=== PATIENT | male | born 1950 | race Caucasian/White ===

== ENCOUNTER 2017-07-25 08:58 | Day surgery (SDC) | payer MEDICARE, OTHER ==
[~2017-07-25] VITALS: Ht 185.4 cm; Wt 117.5 kg
[~2017-07-25 08:58] MED LIST: ACHD5005 PO; ADV1DS IH; ALBU8.5H4 IH; AMOX-358 PO; ASP81TEC PO; CARV12.5 PO; CIPR500T78 PO; DCS100C PO; DIAZ5TAB3 PO; DIGO125T PO; DILT60TA PO; FRSM40T PO; FURO40TA4 PO; HYDR-1435 PO; HYDR1TAB66 PO; LISI10TA2 PO; MAGN400T6 PO; METO25TA2 PO; POLY17PO23 PO; POTA10CA43 PO; RIVA20TA2 PO; SPRN25T PO; THYR120T2 PO; TRAM50TA2 PO; WARF5TAB6 PO; [UNRECOGNIZED DRUG - CODE] PO
--- OUTSIDE RECORDS SUMMARY | 2017-07-25 09:02 | XMS REPORT ---
Author Author RAHEEM WATKINS [facility] Address [address] [place] [address] Care Team Providers Care Linoleum Installer Name Role Phone RAHEEM WATKINS Unavailable PROBLEMS Type Condition ICD9-CM Code [id number] Code Onset Dates Condition Status SNOMED Code Problem Episodic atrial fibrillation I48.0 Active 157875883 Problem Essential hypertension I10 Active 19735681 Problem Hypothyroidism, unspecified type E03.9 Active 74595036 Problem CHF (congestive heart failure) I50.9 Active 06577828 Problem Non-ischemic cardiomyopathy I42.9 Active 66813560 Problem Fibromyalgia M79.7 Active 564604252 Problem Diabetes E11.9 Active 84378754 ALLERGIES Unknown Allergies SOCIAL HISTORY No smoking Hx information available PLAN OF CARE VITAL SIGNS MEDICATIONS Medication Instructions Dosage Frequency Start Date End Date Duration Status tramadol 50 mg by oral route every 4 hours as needed 1 tablet Jul, Active Tramadol HCl 50 mg Orally every 6 hrs 1 tablet as needed 6h Mar, Active RESULTS No Results PROCEDURES No Known procedures IMMUNIZATIONS No Known Immunizations
--- OUTSIDE RECORDS SUMMARY | 2017-07-25 09:02 | XMS REPORT ---
Author RAHEEM Bragg [facility] eClinicalWorks Address Unknown Phone Unavailable Care Team Providers Care Clerical Aide Teacher Name Role Phone RAHEEM WATKINS CP Unavailable Allergies No Known Allergies Problems Problem Type Condition Code Onset Dates Condition Status Problem Non-ischemic cardiomyopathy I42.9 Active Problem Episodic atrial fibrillation I48.0 Active Problem CHF (congestive heart failure) I50.9 Active Medications No Known Medications Results No Known Results Summary Purpose eClinicalWorks Submission
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
--- OUTSIDE RECORDS SUMMARY | 2017-07-25 09:02 | XMS REPORT ---
Author RAHEEM Bragg [facility] eClinicalWorks Address Unknown Phone Unavailable Care Team Providers Care Transit Mixer Driver Name Role Phone RAHEEM WATKINS Unavailable Allergies, Adverse Reactions, Alerts Substance Reaction Event Type Coreg Info Not Available Drug Allergy Problems Problem Type Condition Code Onset Dates Condition Status Problem Diabetes E11.9 Active Problem CHF (congestive heart failure) I50.9 Active Problem Fibromyalgia M79.7 Active Assessment Diabetes E11.9 Active Assessment Fibromyalgia M79.7 Active Problem Non-ischemic cardiomyopathy I42.9 Active Problem Episodic atrial fibrillation I48.0 Active Medications Medication Code System Code Instructions Start Date End Date Status Dosage Metformin HCl [facility] [address]-76 1000 MG Orally Twice a day, pc Mar 12, 2015 1 tablet with meals tramadol ND 0 50 mg August 05, 2013 1 Tablet by Oral route every 4 hours Melodie Allergy [facility] [address]54 180 mg July 17, 2013 take 1 tablet (180 mg) by oral route once daily Metoprolol Tartrate [facility] 49920260087 25 TAKE 1 TABLET BY MOUTH TWICE DAILY Aspirin [facility] [address]-97 81 mg June 28, 2013 1 Tablet by Oral route 1 time per day Digoxin [facility] 96962307859 125 MCG by oral route Once a day 1 tablet GlipiZIDE [facility] [address]-43 10 mg Orally bid Oct 13, 2015 1 tablet Valium [facility] [address]-34 5 mg Orally qd prn muscle spasm Oct 13, 2015 1 Lisinopril [facility] [address]-20 10 MG Orally Once a day 1 tablet Lyrica [facility] [address]-52 150 MG Orally tid Oct 13, 2015 1 capsule Magnesium Oxide [facility] [address]-07 400 MG 2 times a day July 15, 2013 1 Tablet by Oral route 1 time per day Furosemide [facility] 97226407934 40 MG TAKE ONE TABLET BY MOUTH EACH DAY Benadryl [facility] [address]-51 25 mg July 17, 2013 take 1 capsule by Oral route 1 time per day Jessie Thyroid [facility] [address]-74 120 MG Orally Once a day 1 tablet Procedures Procedure Coding System Code Date [facility] VISIT ESTABLISHED PATIENT CPT-4 G0467 Oct 13, 2015 Office Visit, Est Pt., Level 3 CPT-4 59260 Oct 13, 2015 GLYCATED HEMOGLOBIN TEST CPT-4 20729 Oct 13, 2015 Vital Signs Date/Time: Oct 13, 2015 Cardiac Monitoring Heart Rate 72 bpm Weight 327.8 lbs Height 73 in BMI 43.24 Index Blood Pressure Diastolic 98 mmHg Blood Pressure Systolic 180 mmHg Results No Known Results Summary Purpose eClinicalWorks Submission
--- OUTSIDE RECORDS SUMMARY | 2017-07-25 09:02 | XMS REPORT ---
Author RAHEEM Bragg [facility] eClinicalWorks Address Unknown Phone Unavailable Care Team Providers Care Tile Conduit Layer Name Role Phone RAHEEM WATKINS Unavailable Allergies, Adverse Reactions, Alerts Substance Reaction Event Type Coreg Info Not Available Drug Allergy Problems Problem Type Condition Code Onset Dates Condition Status Problem Non-ischemic cardiomyopathy I42.9 Active Problem Episodic atrial fibrillation I48.0 Active Problem CHF (congestive heart failure) I50.9 Active Assessment Non-ischemic cardiomyopathy I42.9 Active Assessment Episodic atrial fibrillation I48.0 Active Assessment CHF (congestive heart failure) I50.9 Active Assessment Prostatitis N41.9 Active Medications Medication Code System Code Instructions Start Date End Date Status Dosage tramadol [facility] 0 50 mg August 05, 2013 1 Tablet by Oral route every 4 hours Lisinopril [facility] [address]-01 10 MG Orally Once a day 1 tablet Bactrim DS [facility] [address]-86 800-160 MG Orally Twice a day Mar 06, 2015 2015 1 tablet Furosemide [facility] 55653525431 40 MG TAKE ONE TABLET BY MOUTH ONCE DAILY Melodie Allergy [facility] [address]02 180 mg July 17, 2013 take 1 tablet (180 mg) by oral route once daily Benadryl [facility] [address]-24 25 mg July 17, 2013 take 1 capsule by Oral route 1 time per day [place] Thyroid [facility] [address]-45 120 MG Orally Once a day 1 tablet Percocet [facility] [address]-21 5-325 mg Apr 08, 2014 take 1 tablet by Oral route as needed every 6 hours Digoxin [facility] 83368047241 125 MCG TAKE ONE TABLET BY MOUTH DAILY Metoprolol Tartrate [facility] 19445222290 25 MG TAKE ONE TABLET BY MOUTH TWICE DAILY Magnesium Oxide [facility] [address]-14 400 MG 2 times a day July 15, 2013 1 Tablet by Oral route 1 time per day Aspirin [facility] [address]-12 81 mg June 28, 2013 1 Tablet by Oral route 1 time per day Procedures Procedure Coding System Code Date ASSAY OF DIGOXIN CPT-4 44248 Mar 05, 2015 VENIPUNCT, ROUTINE* CPT-4 87243 Mar 05, 2015 COMPREHEN METABOLIC PANEL CPT-4 93506 Mar 05, 2015 Office Visit, Est Pt., Level 3 CPT-4 98272 Mar 05, 2015 Vital Signs Date/Time: Mar 05, 2015 Temperature 97.8 F Weight 331 lbs Height 73 in BMI 43.67 Index Blood Pressure Diastolic 82 mmHg Blood Pressure Systolic 132 mmHg Cardiac Monitoring Heart Rate 66 bpm Results Name Result Date Reference Range Unit Abnormality Flag ROUTINE VENIPUNCTURE DIGOXIN ----Digoxin, Serum <0.2 [id number] 0.9-2.0 ng/mL L Summary Purpose eClinicalWorks Submission
--- OUTSIDE RECORDS SUMMARY | 2017-07-25 09:02 | XMS REPORT ---
Author Author RAHEEM WATKINS [facility] eClinicalWorks Address Unknown Phone Unavailable Care Team Providers Care Financial Aid Name Role Phone RAHEEM WATKINS Unavailable Allergies No Known Allergies Problems Problem Type Condition Code Onset Dates Condition Status Problem Diabetes E11.9 Active Problem CHF (congestive heart failure) I50.9 Active Problem Fibromyalgia M79.7 Active Problem Non-ischemic cardiomyopathy I42.9 Active Problem Episodic atrial fibrillation I48.0 Active Medications Medication Code System Code Instructions Start Date End Date Status Dosage Levothyroxine Sodium [facility] [address]-20 150 MCG Orally Once a day Oct 16, 2015 1 tablet on an empty stomach in the morning Results No Known Results Summary Purpose eClinicalWorks Submission
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
--- OUTSIDE RECORDS SUMMARY | 2017-07-25 09:02 | XMS REPORT ---
Author Author RAHEEM WATKINS [facility] eClinicalWorks Address Unknown Phone Unavailable Care Team Providers Care Geophysical Laboratory Director Name Role Phone RAHEEM WATKINS CP Unavailable Allergies No Known Allergies Problems Problem Type Condition Code Onset Dates Condition Status Problem Other dyspnea and respiratory abnormalities 786.09 Active Problem Essential hypertension, benign 401.1 Active Problem Unspecified hypothyroidism 244.9 Active Problem Unspecified disease of respiratory system 519.9 Active Problem Encounter for long-term (current) use of anticoagulants V58.61 Active Problem Unspecified disorder of urethra and urinary tract 599.9 Active Problem Unspecified myalgia and myositis 729.1 Active Problem Edema 782.3 Active Problem Elevated prostate specific antigen (PSA) 790.93 Active Problem Need for prophylactic vaccination and inoculation, Influenza V04.81 Active Problem Obstructive chronic bronchitis with acute bronchitis 491.22 Active Problem Atrial fibrillation 427.31 Active Problem Nonspecific abnormal electrocardiogram (ECG) (EKG) 794.31 Active Problem Congestive heart failure, unspecified 428.0 Active Problem Nonspecific abnormal finding in stool contents 792.1 Active Problem Other primary cardiomyopathies 425.4 Active Problem Cough 786.2 Active Problem Special screening for malignant neoplasms, colon V76.51 Active Problem Other malaise and fatigue 780.79 Active Medications Medication Code System Code Instructions Start Date End Date Status Dosage [place] Thyroid [facility] [address]-27 120 MG Orally Once a day July 02, 2013 Dec 10, 2013 1 Tablet by Oral route 1 time per day Results No Known Results Summary Purpose eClinicalWorks Submission
--- OUTSIDE RECORDS SUMMARY | 2017-07-25 09:03 | XMS REPORT ---
Author Author RAHEEM WATKINS [facility] Address [address] [place] [address] Care Team Providers Care Highway Worker Name Role Phone RAHEEM WATKINS Unavailable PROBLEMS Type Condition ICD9-CM Code [id number] Code Onset Dates Condition Status SNOMED Code Problem Episodic atrial fibrillation I48.0 Active 531370614 Problem Essential hypertension I10 Active 96409797 Problem Hypothyroidism, unspecified type E03.9 Active 93368001 Problem CHF (congestive heart failure) I50.9 Active 45202715 Problem Non-ischemic cardiomyopathy I42.9 Active 64348094 Problem Fibromyalgia M79.7 Active 434003364 Problem Diabetes E11.9 Active 50661629 ALLERGIES Substance Reaction Event Type Date Status Coreg Unknown Drug Allergy Feb, Active SOCIAL HISTORY No smoking Hx information available PLAN OF CARE Activity Details Follow Up 3 Months Reason: VITAL SIGNS Height 73 in 2016-03-28 Weight 331.8 lbs 2016-03-28 Temperature 97.9 degrees Fahrenheit 2016-03-28 Heart Rate 68 bpm 2016-03-28 Respiratory Rate 20 2016-03-28 BMI 43.77 kg/m2 2016-03-28 Blood pressure systolic 170 mmHg 2016-03-28 Blood pressure diastolic 106 mmHg 2016-03-28 MEDICATIONS Medication Instructions Dosage Frequency Start Date End Date Duration Status Benadryl 25 mg take 1 capsule by Oral route 1 time per day June, Active Furosemide 40 mg Orally Once a day 1 tablet 24h 90 days Active Levothyroxine Sodium 150 MCG Orally Once a day 1 tablet on an empty stomach in the morning 24h 30 Active Lisinopril 10 MG Orally Once a day 1 tablet 24h Active Metformin HCl 1000 MG Orally Twice a day, pc 1 tablet with meals Feb, Active GlipiZIDE 10 mg Orally bid 1 tablet 12h Sep, Active Valium 5 mg Orally qd prn muscle spasm 1 Sep, Active Magnesium Oxide 400 MG 1 Tablet by Oral route 1 time per day 12h June, Active Aspirin 81 mg 1 Tablet by Oral route 1 time per day June, Active Digoxin 125 mcg by oral route Once a day 1 tablet 24h Active tramadol 50 mg by oral route every 4 hours as needed 1 tablet Jul, Active Lyrica 150 MG Orally tid 1 capsule 8h Sep, Active Metoprolol Tartrate 25 TAKE 1 TABLET BY MOUTH TWICE DAILY 30 Active RESULTS Name Result Date Reference Range TSH 2016-03-28 TSH 3.370 0.450-4.500 A1C (IN HOUSE) 2016-03-28 A1C IN HOUSE 8.4 4.3 - 5.6 % Previous A1c 9.5 Lot [id number] Exp date 2017-12 CMP 2016-03-28 Glucose, Serum 182 65-99 BUN 16 8-27 Creatinine, Serum 0.81 0.76-1.27 eGFR If NonAfricn Am 93 >59 eGFR If Africn Am 107 >59 BUN/Creatinine Ratio 20 10-22 Sodium, Serum 140 134-144 Potassium, Serum 4.0 3.5-5.2 Chloride, Serum 93 96-106 Carbon Dioxide, Total 26 18-29 Calcium, Serum 9.3 8.6-10.2 Protein, Total, Serum 8.0 6.0-8.5 Albumin, Serum 4.3 3.6-4.8 Globulin, Total 3.7 1.5-4.5 A/G Ratio 1.2 1.1-2.5 Bilirubin, Total 0.8 0.0-1.2 Alkaline Phosphatase, S 88 39-117 AST (SGOT) 45 0-40 ALT (SGPT) 47 0-44 PROCEDURES Procedure Date Ordered Related Diagnosis Body [facility] Mar [facility], 2016 VENIPUNCT, ROUTINE* Mar 28, 2016 [facility] VISIT ESTABLISHED PATIENT Mar 28, 2016 IMMUNIZATION ADMIN, EACH ADD (please include units) Mar 28, 2016 Office Visit, Est Pt., Level 4 Mar 28, 2016 FLUZONE HIGH DOSE 65 AND UP 2015Mar 28, 2016 GLYCATED HEMOGLOBIN TEST Mar 28, 2016 SINGLE IMMUNIZATION ADMIN Mar 28, 2016 PPV23 (PNEUMOVAX) Mar 28, 2016 IMMUNIZATIONS Vaccine Route Administration Date Status FLUZONE HIGH DOSE 65 AND UP 2015 IM Intramuscular Mar 28, 2016 Administered PPV23 (PNEUMOVAX) IM Intramuscular Mar 28, 2016 Administered
--- OUTSIDE RECORDS SUMMARY | 2017-07-25 09:03 | XMS REPORT ---
Author RAHEEM Bragg [facility] eClinicalWorks Address Unknown Phone Unavailable Care Team Providers Care Physics Tutor Name Role Phone RAHEEM WATKINS CP Unavailable Allergies No Known Allergies Problems Problem Type Condition Code Onset Dates Condition Status Problem Diabetes E11.9 Active Problem CHF (congestive heart failure) I50.9 Active Problem Fibromyalgia M79.7 Active Problem Non-ischemic cardiomyopathy I42.9 Active Problem Episodic atrial fibrillation I48.0 Active Medications No Known Medications Results No Known Results Summary Purpose eClinicalWorks Submission
--- OUTSIDE RECORDS SUMMARY | 2017-07-25 09:03 | XMS REPORT ---
Author Author RAHEEM WATKINS [facility] eClinicalWorks Address Unknown Phone Unavailable Care Team Providers Care Millwright Apprentice Name Role Phone RAHEEM WATKINS Unavailable Allergies No Known Allergies Problems Problem Type Condition Code Onset Dates Condition Status Problem CHF (congestive heart failure) I50.9 Active Problem Non-ischemic cardiomyopathy I42.9 Active Problem Diabetes E11.9 Active Problem Episodic atrial fibrillation I48.0 Active Assessment Diabetes E11.9 Active Medications Medication Code System Code Instructions Start Date End Date Status Dosage Metformin HCl [facility] [address]-71 500 MG Orally Twice a day Mar 12, 2015 1 tablet with meals Results No Known Results Summary Purpose eClinicalWorks Submission
--- OUTSIDE RECORDS SUMMARY | 2017-07-25 09:03 | XMS REPORT ---
Author Author RAHEEM WATKINS [facility] eClinicalWorks Address Unknown Phone Unavailable Care Team Providers Care Security Guard Supervisor Name Role Phone RAHEEM WATKINS CP Unavailable [...] Instructions Start Date End Date Status Dosage Lisinopril [facility] [address]-70 10 MG Orally Once a day 1 tablet Results No Known Results Summary Purpose eClinicalWorks Submission
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
--- OUTSIDE RECORDS SUMMARY | 2017-07-25 09:03 | XMS REPORT ---
Author Author RAHEEM WATKINS [facility] eClinical[employer] Address Unknown Phone Unavailable Care Team Providers Care Sanitarian Inspector Name Role Phone RAHEEM WATKINS Unavailable Allergies No Known Allergies Problems Problem Type Condition Code Onset Dates Condition Status Problem CHF (congestive heart failure) I50.9 Active Problem Non-ischemic cardiomyopathy I42.9 Active Problem Diabetes E11.9 Active Problem Episodic atrial fibrillation I48.0 Active Medications Medication Code System Code Instructions Start Date End Date Status Dosage Magnesium Oxide [facility] [address]-58 400 MG 2 times a day July 15, 2013 1 Tablet by Oral route 1 time per day Lisinopril [facility] [address]-47 10 MG Orally Once a day 1 tablet Orient Thyroid [facility] [address]-13 120 MG Orally Once a day 1 tablet Results No Known Results Summary Purpose eClinicalWorks Submission
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
--- OUTSIDE RECORDS SUMMARY | 2017-07-25 09:03 | XMS REPORT ---
Author Author RAHEEM WATKINS [facility] Address [address] [place] [address] Care Team Providers Care Durability Technician Name Role Phone RAHEEM WATKINS Unavailable PROBLEMS Type Condition ICD9-CM Code PSB27-QP Code Onset Dates Condition Status SNOMED Code Problem Fibromyalgia M79.7 Active 620239512 Problem Diabetes E11.9 Active 22144621 Problem Episodic atrial fibrillation I48.0 Active 266923551 Assessment CHF (congestive heart failure) I50.9 Jan, Active 96466551 Problem CHF (congestive heart failure) I50.9 Active 68755492 Problem Non-ischemic cardiomyopathy I42.9 Active 86718067 ALLERGIES Unknown Allergies SOCIAL HISTORY No smoking Hx information available PLAN OF CARE VITAL SIGNS MEDICATIONS Medication Instructions Dosage Frequency Start Date End Date Duration Status Furosemide 40 mg Orally Once a day 1 tablet 24h 90 days Active RESULTS No Results PROCEDURES No Known procedures IMMUNIZATIONS No Known Immunizations
--- OUTSIDE RECORDS SUMMARY | 2017-07-25 09:03 | XMS REPORT ---
Author Author RAHEEM WATKINS [facility] Address [address] [place] [address] Care Team Providers Care Chief Of Planning Name Role Phone RAHEEM WATKINS Unavailable PROBLEMS Type Condition ICD9-CM Code SAQ47-YD Code Onset Dates Condition Status SNOMED Code Problem Fibromyalgia M79.7 Active 942740486 Problem Diabetes E11.9 Active 96676478 Problem Episodic atrial fibrillation I48.0 Active 970231769 Problem CHF (congestive heart failure) I50.9 Active 96906757 Problem Non-ischemic cardiomyopathy I42.9 Active 19014989 ALLERGIES Unknown Allergies SOCIAL HISTORY No smoking Hx information available PLAN OF CARE VITAL SIGNS MEDICATIONS Medication Instructions Dosage Frequency Start Date End Date Duration Status Digoxin 125 mcg by oral route Once a day 1 tablet 24h Active RESULTS No Results PROCEDURES No Known procedures IMMUNIZATIONS No Known Immunizations
[2017-07-25] MEDS ORDERED: LIDOCAINE 1% INJ 20 ML 20 ML VIAL ONE (09:53)
[2017-07-25 11:07] VITALS: BP 176/84
[2017-07-25 12:16] VITALS: BP 132/68
--- NOTE | 2017-07-25 13:20 | Cardiac Procedure Note-CS/ASA ---
Pre-Procedure Note Pre-Op Procedure Note H&P Reviewed The H&P was reviewed, patient examined and no changes noted. Date H&P Reviewed: July 25, 2017 Time H&P Reviewed: 10:00 Conscious Sedation Pre-Proced Time Reviewed: 10:00 ASA Class: 3 Airway Mallampati Classification: ([place] appropriate class) I. II. III, IV Lungs Heart ASA score ASA 1: a normal healthy patient ASA 2: a patient with a mild systemic disease (mid diabetes, controlled hypertension, obesity ASA 3: a patient with a severe systemic disease that limits activity (angina , COPD, prior Myocardial infarction) ASA 4: a patient with an incapacitating disease that is a constant threat to life (CHF, renal failure) ASA 5: a moribund patient not expected to survive 24 hrs. (ruptured aneurysm) ASA 6: a declared brain patient whose organs are being harvested. For emergent operations, add the letter E after the classification Grade 3 Sedation Plan: Analgesia, Amnesia, Plan communicated to team members, Discussed options with patient/fam, Discussed risks with patient/fam Note The patient is an appropriate candidate to undergo the planned procedure, sedation, and anesthesia. The patient immediately re-assessed prior to indication. MONCHO SHELBY MD FACP FAC CCDS July 25, 2017 13:20
--- NOTE | 2017-07-25 20:44 | OPERATIVE REPORT ---
DATE OF SERVICE: 07/25/2017 PREOPERATIVE DIAGNOSIS: History of atrial fibrillation. POSTOPERATIVE DIAGNOSIS: History of atrial fibrillation. PROCEDURE: Implantable loop recorder implantation. The patient is a 67-year-old man with a history of atrial flutter ablation. He does not wish to be on anticoagulation. Recurrent atrial flutter/fibrillation is a concern. Implantable loop recorder was implanted today to monitor for occult atrial fibrillation. Informed consent was obtained. [facility] The tools provided with the implantable loop recorder were used to make a small incision in the fourth intercostal space just to the left of the sternum after providing local anesthesia. A subcutaneous tunnel was made with the tools provided and the implantable loop recorder was placed in the subcutaneous pocket and the incision closed with Dermabond. He tolerated the procedure well. The device is a eBuddy Reveal LINQ with serial #[id number]. Job ID: [id number] DocumentID: [id number] Dictated Date: 07/25/2017 11:52:35 Product Development Engineer Date: 07/25/2017 16:17:34 Dictated By: MONCHO SHELBY MD, MA, FACP, FACC,
== END 2017-07-25 12:23 | disposition home or self-care (01) ==
LOC: CATH 08:58
PROVIDERS: ATTEND Internal Medicine Cardiovascular Disease
DX: I48.91 Unspecified atrial fibrillation (principal); I48.92 Unspecified atrial flutter; I42.0 Dilated cardiomyopathy; I50.22 Chronic systolic (congestive) heart failure; E03.9 Hypothyroidism, unspecified; E66.9 Obesity, unspecified; Z68.36 Body mass index [BMI] 36.0-36.9, adult
CPT/HCPCS: 33282

== ENCOUNTER 2017-09-12 20:03 | Outpatient (CLI) | payer MEDICARE, OTHER | END 2017-09-13 06:30 | disposition home or self-care (01) | LOC: SLEEP 20:03 | PROVIDERS: ATTEND Otolaryngology Otolaryngology/Facial Plastic Surgery | DX: G47.33 Obstructive sleep apnea (adult) (pediatric) (principal); I50.9 Heart failure, unspecified; I48.92 Unspecified atrial flutter; G47.10 Hypersomnia, unspecified | CPT/HCPCS: 95810 ==

== ENCOUNTER 2017-12-12 05:44 | Outpatient (CLI) | payer MEDICARE ==
[~2017-12-12] VITALS: Ht 185.4 cm; Wt 136.1 kg
[2017-12-12] MEDS ORDERED: FURO40TA4 PO (14:16)
[2017-12-12] MEDS ORDERED: LEVO175T5 PO (14:16)
[2017-12-12] MEDS ORDERED: METO-333 PO (14:16)
[2017-12-12] MEDS ORDERED: MULT-517 PO (14:25)
[2017-12-12] MEDS ORDERED: SAW/1TAB2 PO (14:25)
[2017-12-12] MEDS ORDERED: MAGN400T50 PO (14:25)
[2017-12-12] MEDS ORDERED: PREG200C PO (14:25)
[2017-12-12] MEDS ORDERED: LISI10TA2 PO (14:25)
[2017-12-12] MEDS ORDERED: ASPI-999 PO (14:25)
--- NOTE | 2017-12-19 15:20 | Anesthesia-General Post-Op ---
MAC Patient Condition Mental Status/LOC: Same as Preop Cardiovascular: Satisfactory Nausea/Vomiting: Absent Respiratory: Satisfactory Pain: Controlled Complications: Absent Post Op Complications Complications None Follow Up Care/Instructions Patient Instructions None needed. Anesthesiology Discharge Order Discharge Order Patient is doing well, no complaints, stable vital signs, no apparent adverse anesthesia problems. No complications reported per nursing. FRANCESCA [place] CRNA Dec 19, 2017 15:20
== END 2017-12-12 14:33 | disposition home or self-care (01) ==
LOC: PREOP 05:44
PROVIDERS: ATTEND Surgery
DX: Z01.818 Encounter for other preprocedural examination (principal)

== ENCOUNTER 2018-06-20 10:15 | Outpatient (CLI) | payer MEDICARE ==
[~2018-06-20] VITALS: Ht 185.4 cm; Wt 136.1 kg
[~2018-06-20 10:15] MED LIST changes: +ASPI-999 PO; +LEVO175T5 PO; +MAGN400T50 PO; +METO-333 PO; +MULT-178 PO; +MULT-517 PO; +PREG200C PO; +SAW/1TAB2 PO
== END 2018-06-20 12:35 | disposition home or self-care (01) ==
LOC: PREOP 10:15
PROVIDERS: ATTEND Surgery
DX: Z01.818 Encounter for other preprocedural examination (principal)

== ENCOUNTER 2018-06-26 10:04 | Day surgery (SDC) | payer MEDICARE ==
[~2018-06-26] VITALS: Ht 185.4 cm; Wt 136.1 kg
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
[2018-06-26] MEDS ORDERED: LACTATED RINGERS 1,000 ML IV STA (10:11)
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
[2018-06-26] MEDS ORDERED: LACTATED RINGERS 1,000 ML IV ONE (10:13)
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
--- OUTSIDE RECORDS SUMMARY | 2018-06-26 10:13 | XMS REPORT ---
Author Author RAHEEM WATKINS Organization [facility] Address [address] [place] [address] Care Team Providers Care Gamb Cutter Name Role Phone RAHEEM WATKINS Unavailable PROBLEMS Type Condition ICD9-CM Code VZO67-PW Code Onset Dates Condition Status SNOMED Code Problem CHF (congestive heart failure) I50.9 Active 78797283 Problem Fibromyalgia M79.7 Active 216769319 Problem Diabetes E11.9 Active 92916870 Problem Non-ischemic cardiomyopathy I42.9 Active 99368819 Problem Episodic atrial fibrillation I48.0 Active 172616888 Problem Arthritis of right knee M17.11 Active [id number] Problem Mixed hyperlipidemia E78.2 Active 296960137 Problem Hypothyroidism, unspecified type E03.9 Active 21727342 Problem Essential hypertension I10 Active 82585779 Problem Other insomnia G47.09 Active 232603054 Problem Arthritis M19.90 Active 4443267 ALLERGIES No Information ENCOUNTERS Encounter Location Date Diagnosis [place] [address] [address] Aug, Arthritis of right knee M17.11 [place] [address] [place] [id number] [place] [address]- [address] Aug, [place] [address] [address] Aug, Acute pain of right knee M25.561 ; Diabetes E11.9 ; Hypothyroidism, unspecified type E03.9 and BMI 40.0-44.9, adult Z68.41 [place] [address] [place] [id number] [place] [address]17- 0850 June, Fibromyalgia M79.7 [place] [address] [place] [id number] [place] [address]24- 2689 Apr, Fibromyalgia M79.7 [facility] [address] [place] [id number] [place] [address] 31705- 2655 Mar, Penetrating wound T14.8XXA and Encounter for immunization Z23 [facility] [address] [address]- [address] Mar, [facility] [address] 21071- 4897 Feb, [facility] [address] [address]- 4419 Feb, Fibromyalgia M79.7 [facility] [address] [address]- 6[address] Jan, [facility] [address] 11289- 6878 Jan, Fibromyalgia M79.7 [facility] [address] 48[address]- 1135 Jan, [facility] [address] 71359- 6132 Dec, Fibromyalgia M79.7 [facility] [address] 14888- 9592 Dec, [facility] [address] 44625- 36[address] Dec, [facility] [address] 58492- 6491 Dec, Mixed hyperlipidemia E78.2 and Other insomnia G47.09 [facility] [address] 20661- 8601 Dec, [facility] [address] 42512- 5809 Dec, Encounter for immunization Z23 ; Diabetes E11.9 ; Hypothyroidism, unspecified type E03.9 ; Essential hypertension I10 ; Fever in other diseases R50.81 ; CHF (congestive heart failure) I50.9 ; Fibromyalgia M79.7 and Arthritis M19.90 [facility] [address] [place] [id number] [place] [address] 55069- 2751 Aug, [facility] [address] [place] [id number] [place] [address] 88904- 1902 June, [facility] [address] 94916- 8473 Apr, [facility] [address] 51716- 3169 Apr, CHF (congestive heart failure) I50.9 [facility] [address] 38325- 5576 Apr, Fibromyalgia M79.7 [facility] [address] 72529- 8658 Mar, Fibromyalgia M79.7 [facility] [address] [place] [id number] [place] [address] 61810- 5761 Mar, [facility] [address] [place] [id number] [place] [address] 94338- 2161 Mar, Fibromyalgia M79.7 [facility] [address] [place] [id number] [place] [address] 91993- 7060 Feb, Diabetes E11.9 ; Hypothyroidism, unspecified type E03.9 ; CHF (congestive heart failure) I50.9 ; Fibromyalgia M79.7 ; Encounter for immunization Z23 and Essential hypertension I10 [facility] [address] [place] [id number] [place] [address] 57610- 1744 Jan, CHF (congestive heart failure) I50.9 [facility] [address] [place] [id number] [place] [address] 12934- 1318 Dec, [facility] [address] [place] [id number] [place] [address] 45082- 8791 Sep, [facility] [address] [place] [address]- 7277 Sep, [facility] [address] [address]- 59[address] Sep, Diabetes E11.9 and Fibromyalgia M79.7 [facility] [address] [address]- 7318 Jul, CHF (congestive heart failure) I50.9 [facility] [address] [place] [id number] [place] [address] 29150- 0209 June, CHF (congestive heart failure) I50.9 [facility] [address] [place] [id number] [place] [address] 59525- 6586 Feb, [facility] [address] [place] [id number] [place] [address] 63820- 0739 Feb, Diabetes E11.9 [facility] [address] [place] [id number] [place] [address] 81706- 5120 Feb, [facility] [id number] [place] [address] 88319- 8376 Feb, CHF (congestive heart failure) I50.9 ; Prostatitis N41.9 ; Non-ischemic cardiomyopathy I42.9 and Episodic atrial fibrillation I48.0 [facility] [address] [address]- 2271 Dec, [facility] [address] [address]- 6100 Dec, [facility] [address] [address]- 4234 Jul, [facility] [address] [place] [id number] [place] [address] 39311- 2450 Jul, [facility] [address] [address]- 2392 May, [facility] [address] [address]- 8360 May, [facility] [place] [facility] [address] [id number] [place] [address]- 7950 14 May, 2014 [facility] [place] [facility] [address] [id number] [place] [address]- 6366 May, [facility] [place] [facility] [address] [id number] [place] [address]- 6499 Apr, [facility] [place] [facility] [address] [id number] [place] [address]- 5121 Mar, [facility] [place] [facility] [address] [id number] [place] [address]- 8213 Mar, [facility] [place] [facility] [address] [id number] [place] [address]- 1330 Dec, [facility] [place] [facility] [address] [id number] [place] [address]- 5030 Dec, [facility] [place] [facility] [address] [id number] [place] [address]- 5825 Dec, [facility] [place] [facility] [address] [id number] [place] [address]- 6796 Dec, [facility] [place] [facility] [address] [id number] [place] [address]- 4486 Dec, [facility] [place] [facility] [address] [id number], [place] [address]- 1301 Dec, [facility] [place] [facility] [address] [id number], [place] [address]- 6962 Dec, [facility] [place] [facility] [address] [id number] [place] [address]- 4530 Dec, [facility] [place] [facility] [address] [id number] [place] [address]- 3339 Dec, [facility] [place] [facility] [address] [id number], [place] [address]- 8181 Dec, [facility] [place] [facility] [address] [id number], [place] [address]- 1657 Nov, [facility] [place] [facility] [address] [id number] [place] [address]- 9167 Nov, [facility] [place] [facility] [address] [id number] [place] [address]- 4506 14 Nov, 2013 [facility] [place] [facility] [address] [id number] [place] [address]- 0452 14 Nov, 2013 [facility] [place] [facility] [address] [id number] [place] [address]- 8282 14 Nov, 2013 [facility] [place] [facility] [address] [id number] [place] [address]- 0302 14 Nov, 2013 [facility] [place] [facility] [address] [id number] [place] [address]- 0439 Nov, [facility] [place] [facility] [address] [id number] [place] [address]- 0570 Nov, [facility] [place] [facility] [address] [id number] [place] [address]- 4539 Nov, [facility] [place] [facility] [address] [id number] [place] [address]- 6793 Nov, [facility] [place] [facility] [address] [facility] [id number] [place] [address]- 2160 Nov, [facility] [place] [facility] [address] [id number], [place] [address]- 9527 07 Nov, 2013 [facility] [place] [facility] [address] [id number], [place] [address]- 7348 23 Oct, 2013 [facility] [place] [facility] [address] [id number] [place] [address]- 4894 23 Sep, 2013 [facility] [place] [facility] [address] [id number] [place] [address]- 4470 18 Sep, 2013 [facility] [place] [facility] [address] [id number] [place] [address]- 1896 17 Sep, 2013 [facility] [place] [facility] [address] [id number] [place] [address]- 3607 Oct, [facility] [place] [facility] [address] [id number] [place] [address]- 6318 Oct, [facility] [place] [facility] [address] [id number] [place] [address] Oct, [facility] [place] [facility] [address] [id number] [place] [address]- 6701 Jul, [facility] [place] [facility] [address] [id number] [place] [address]- 9637 Jul, [facility] [place] [facility] [address] [id number] [place] [address]- 0052 Jul, [facility] [place] [facility] [address] [id number] [place] [address]- 6542 Jul, [facility] [place] [facility] [address] [id number] [place] [address]- 1785 Jul, [facility] [place] [facility] [address] [id number] [place] [address]- 2635 Jul, [facility] [place] [facility] [address] [id number] [place] [address]- 5158 Jul, [facility] [place] [facility] [address] [id number] [place] [address]- 3405 Jul, [facility] [place] [facility] [address] [id number] [place] [address]- 0812 June, [facility] [place] [facility] [address] [id number] [place] [address]- 3998 June, [facility] [place] [facility] [address] [id number] [place] [address]- 6207 June, [facility] [place] [facility] [address] [id number] [place] [address]- 6287 June, [facility] [place] [facility] [address] [id number] [place] [address]- 6790 June, [facility] [address] [id number] [place] [address]- 9466 June, [facility] [place] [facility] [address] [id number] [place] [address]- 1594 June, [facility] [place] [facility] [address] [id number] [place] [address]- 1990 June, [facility] [place] [facility] [address] [id number] [place] [address]- 0538 June, [facility] [place] [facility] [address] [id number] [place] [address]- 2859 June, [facility] [place] [facility] [address] [id number] [place] [address]- 0773 June, [facility] [place] [facility] [address] [id number] [place] [address]- 6303 June, [facility] [place] [facility] [address] [id number] [place] [address]- 4733 June, [facility] [place] [facility] [address] [id number] [place] [address]- 6139 June, [facility] [place] [facility] [address] [id number] [place] [address]- 7052 May, [facility] [place] [facility] [address] [id number] [place] [address]- 8223 May, [facility] [place] [facility] [address] [id number] [place] [address]- 4388 May, [facility] [place] [facility] [address] [id number] [place] [address]- 2780 May, [facility] [place] [facility] [address] [id number] [place] [address]- 6912 May, [facility] [place] [facility] [address] [id number] [place] [address]- 6372 May, [facility] [place] [facility] [address] [id number] [place] [address]- 1164 17 May, 2013 [facility] [place] [facility] [address] [id number] [place] [address]- 5106 17 May, 2013 [facility] [place] [facility] [address] [id number] [place] [address]- 8396 16 May, 2013 [facility] [place] [facility] [address] [id number] [place] [address]- 5956 16 May, 2013 [facility] [place] [facility] [address] [id number] [place] [address]- 6486 16 May, 2013 [facility] [place] [facility] [address] [id number] [place] [address]- 3035 16 May, 2013 [facility] [place] [facility] [address] [id number] [place] [address]- 1806 08 May, 2013 [facility] [place] [facility] [address] [id number] [place] [address]- 7932 08 May, 2013 [facility] [place] [facility] [address] [id number] [place] [address]- 8908 May, [facility] [place] [facility] [address] [id number] [place] [address]- 8926 07 May, 2013 [facility] [place] [facility] [address] [id number] [place] [address]- 4807 Apr, [facility] [place] [facility] [address] [id number] [place] [address]- 4075 27 Apr, 2013 [facility] [place] [facility] [address] [id number] [place] [address]- 6251 27 Apr, 2013 [facility] [place] [facility] [address] [id number] [place] [address]- 0976 27 Apr, 2013 [facility] [place] [facility] [address] [id number] [place] [address]- 9762 20 Apr, 2013 [facility] [place] [facility] [address] [id number] [place] [address]- 3388 20 Apr, 2013 [facility] [address] [id number], [place] [address]- 9453 19 Apr, 2013 [facility] [address] [facility] [id number], [place] [address]- 2010 19 Apr, 2013 [facility] [address] [facility] [id number], [place] [address]- 7525 19 Apr, 2013 [facility] [address] [facility] [id number], [place] [address]- 3421 19 Apr, 2013 [facility] [address] [id number], [place] [address]- 5277 19 Apr, 2013 [facility] [address] [facility] [id number], [place] [address]- 8901 19 Apr, 2013 [facility] [address] [facility] [id number], [place] [address]- 7646 14 Apr, 2013 [facility] [address] [facility] [id number], [place] [address]- 4503 14 Apr, 2013 [facility] [address] [facility] [id number], [place] [address]- 0918 13 Apr, 2013 [facility] [address] [facility] [id number], [place] [address]- 0605 12 Apr, 2013 [facility] [address] [facility] [id number], [place] [address]- 5537 12 Apr, 2013 IMMUNIZATIONS No Known Immunizations SOCIAL HISTORY Never Assessed REASON FOR VISIT valium PLAN OF CARE VITAL SIGNS MEDICATIONS Medication [...]
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
--- OUTSIDE RECORDS SUMMARY | 2018-06-26 10:14 | XMS REPORT ---
Author Author RAHEEM WATKINS Organization [facility] Address [address] [place] [address] Care Team Providers Care Tie Cutter Name Role Phone RAHEEM WATKINS Unavailable PROBLEMS Type Condition ICD9-CM Code QDT36-IX Code Onset Dates Condition Status SNOMED Code Problem CHF (congestive heart failure) I50.9 Active 43167282 Problem Fibromyalgia M79.7 Active 317967864 Problem Diabetes E11.9 Active 63993426 Problem Non-ischemic cardiomyopathy I42.9 Active 05005109 Problem Episodic atrial fibrillation I48.0 Active 986888543 Problem Arthritis of right knee M17.11 Active [id number] Problem Mixed hyperlipidemia E78.2 Active 300644720 Problem Hypothyroidism, unspecified type E03.9 Active 48945693 Problem Essential hypertension I10 Active 39875827 Problem Other insomnia G47.09 Active 385551643 Problem Arthritis M19.90 Active 7527303 ALLERGIES No Information ENCOUNTERS Encounter Location Date Diagnosis [place] [address] [address] Aug, Arthritis of right knee M17.11 [place] [address] [place] [id number] [place] [address]- 3318 Aug, [place] [address] [address]- [address] Aug, Acute pain of right knee M25.561 ; Diabetes E11.9 ; Hypothyroidism, unspecified type E03.9 and BMI 40.0-44.9, adult Z68.41 [place] [address] [place] [id number] [place] [address]85- 6219 June, Fibromyalgia M79.7 [place] [address] [place] [id number] [place] [address]11- 6709 Apr, Fibromyalgia M79.7 [facility] [address] [place] [id number] [place] [address] 85661- 5546 Mar, Penetrating wound T14.8XXA and Encounter for immunization Z23 [facility] [address] [address]- [address] Mar, [facility] [address] [address]- 6[address] Feb, [facility] [address] [address]- 77[address] Feb, Fibromyalgia M79.7 [facility] [address] [address]- 46[address] Jan, [facility] [address] 0[address]47- 5582 Jan, Fibromyalgia M79.7 [facility] [address] 96708- 9730 Jan, [facility] [address] [address]- 9829 Dec, Fibromyalgia M79.7 [facility] [address] [address]- 8210 Dec, [facility] [address] 32692- 3203 Dec, [facility] [address] [address]185- 0152 Dec, Mixed hyperlipidemia E78.2 and Other insomnia G47.09 [facility] [address] [address]- 0348 Dec, [facility] [address] [address]- [address] Dec, Encounter for immunization Z23 ; Diabetes E11.9 ; Hypothyroidism, unspecified type E03.9 ; Essential hypertension I10 ; Fever in other diseases R50.81 ; CHF (congestive heart failure) I50.9 ; Fibromyalgia M79.7 and Arthritis M19.90 [facility] [address] [place] [id number] [place] [address] 10460- 7672 Aug, [facility] [address] [place] [id number] [place] [address] 50538- 6363 June, [facility] [address] 97962- 7232 Apr, [facility] [address] 40557- 7385 Apr, CHF (congestive heart failure) I50.9 [facility] [address] 36832- 3995 Apr, Fibromyalgia M79.7 [facility] [address] 79193- 9539 Mar, Fibromyalgia M79.7 [facility] [address] [place] [id number] [place] [address] 08844- 5074 Mar, [facility] [address] [place] [id number] [place] [address] 15122- 4806 Mar, Fibromyalgia M79.7 [facility] [address] [place] [id number] [place] [address] 93134- 0689 Feb, Diabetes E11.9 ; Hypothyroidism, unspecified type E03.9 ; CHF (congestive heart failure) I50.9 ; Fibromyalgia M79.7 ; Encounter for immunization Z23 and Essential hypertension I10 [facility] [address] [place] [id number] [place] [address] 12680- 2909 Jan, CHF (congestive heart failure) I50.9 [facility] [address] [place] [id number] [place] [address] 10310- 3791 Dec, [facility] [address] [place] [id number] [place] [address] 87972- 3608 Sep, [facility] [address] [place] [address]- 1582 Sep, [facility] [address] [address]- 3[address] Sep, Diabetes E11.9 and Fibromyalgia M79.7 [facility] [address] [address]- 6619 Jul, CHF (congestive heart failure) I50.9 [facility] [address] [place] [id number] [place] [address] 57552- 0701 June, CHF (congestive heart failure) I50.9 [facility] [address] [place] [id number] [place] [address] 63620- 6063 Feb, [facility] [address] [place] [id number] [place] [address] 71380- 2662 Feb, Diabetes E11.9 [facility] [address] [place] [id number] [place] [address] 25809- 1841 Feb, [facility] [id number] [place] [address] 57774- 3155 Feb, CHF (congestive heart failure) I50.9 ; Prostatitis N41.9 ; Non-ischemic cardiomyopathy I42.9 and Episodic atrial fibrillation I48.0 [facility] [address] [address]- 5289 Dec, [facility] [address] [address]- 9749 Dec, [facility] [address] [address]- 6713 Jul, [facility] [address] [place] [id number] [place] [address] 39722- 3641 Jul, [facility] [address] [address]- 5051 May, [facility] [address] [address]- 2729 May, [facility] [place] [facility] [address] [id number] [place] [address]- 2347 14 May, 2014 [facility] [place] [facility] [address] [id number] [place] [address]- 4672 May, [facility] [place] [facility] [address] [id number] [place] [address]- 7670 Apr, [facility] [place] [facility] [address] [id number] [place] [address]- 5862 Mar, [facility] [place] [facility] [address] [id number] [place] [address]- 2449 Mar, [facility] [place] [facility] [address] [id number] [place] [address]- 4266 Dec, [facility] [place] [facility] [address] [id number] [place] [address]- 6083 Dec, [facility] [place] [facility] [address] [id number] [place] [address]- 3553 Dec, [facility] [place] [facility] [address] [id number] [place] [address]- 4780 Dec, [facility] [place] [facility] [address] [id number] [place] [address]- 5340 Dec, [facility] [place] [facility] [address] [id number], [place] [address]- 0564 Dec, [facility] [place] [facility] [address] [id number] [address]- 8475 Dec, [facility] [place] [facility] [address] [id number] [place] [address]- 6303 Dec, [facility] [place] [facility] [address] [id number] [place] [address]- 3158 Dec, [facility] [place] [facility] [address] [id number] [address]- 4557 Dec, [facility] [place] [facility] [address] [id number], [place] [address]- 7845 Nov, [facility] [place] [facility] [address] [id number] [place] [address]- 3791 Nov, [facility] [place] [facility] [address] [id number] [place] [address]- 5772 14 Nov, 2013 [facility] [place] [facility] [address] [id number] [place] [address]- 1351 14 Nov, 2013 [facility] [place] [facility] [address] [id number] [place] [address]- 4261 14 Nov, 2013 [facility] [place] [facility] [address] [id number] [place] [address]- 8346 14 Nov, 2013 [facility] [place] [facility] [address] [id number] [place] [address]- 5166 Nov, [facility] [place] [facility] [address] [id number] [place] [address]- 6267 Nov, [facility] [place] [facility] [address] [id number] [place] [address]- 0029 Nov, [facility] [place] [facility] [address] [id number] [place] [address]- 1719 Nov, [facility] [place] [facility] [address] [facility] [id number] [place] [address]- 3904 Nov, [facility] [place] [facility] [address] [id number], [place] [address]- 6825 07 Nov, 2013 [facility] [place] [facility] [address] [id number], [place] [address]- 4886 23 Oct, 2013 [facility] [place] [facility] [address] [id number] [place] [address]- 4621 23 Sep, 2013 [facility] [place] [facility] [address] [id number] [place] [address]- 7469 18 Sep, 2013 [facility] [place] [facility] [address] [id number] [place] [address]- 9698 17 Sep, 2013 [facility] [place] [facility] [address] [id number] [place] [address]- 2174 Oct, [facility] [place] [facility] [address] [id number] [place] [address]- 3364 Oct, [facility] [place] [facility] [address] [id number] [place] [address] Oct, [facility] [place] [facility] [address] [id number] [place] [address]- 0177 Jul, [facility] [place] [facility] [address] [id number] [place] [address]- 5144 Jul, [facility] [place] [facility] [address] [id number] [place] [address]- 2844 Jul, [facility] [place] [facility] [address] [id number] [place] [address]- 7911 Jul, [facility] [place] [facility] [address] [id number] [place] [address]- 5885 Jul, [facility] [place] [facility] [address] [id number] [place] [address]- 8183 Jul, [facility] [place] [facility] [address] [id number] [place] [address]- 2717 Jul, [facility] [place] [facility] [address] [id number] [place] [address]- 8329 Jul, [facility] [place] [facility] [address] [id number] [place] [address]- 3023 June, [facility] [place] [facility] [address] [id number] [place] [address]- 4769 June, [facility] [place] [facility] [address] [id number] [place] [address]- 2914 June, [facility] [place] [facility] [address] [id number] [place] [address]- 8619 June, [facility] [place] [facility] [address] [id number] [place] [address]- 3643 June, [facility] [address] [id number] [place] [address]- 8204 June, [facility] [place] [facility] [address] [id number] [place] [address]- 8757 June, [facility] [place] [facility] [address] [id number] [place] [address]- 2115 June, [facility] [place] [facility] [address] [id number] [place] [address]- 9520 June, [facility] [place] [facility] [address] [id number] [place] [address]- 6243 June, [facility] [place] [facility] [address] [id number] [place] [address]- 7932 June, [facility] [place] [facility] [address] [id number] [place] [address]- 4970 June, [facility] [place] [facility] [address] [id number] [place] [address]- 9775 June, [facility] [place] [facility] [address] [id number] [place] [address]- 4580 June, [facility] [place] [facility] [address] [id number] [place] [address]- 4685 May, [facility] [place] [facility] [address] [id number] [place] [address]- 4633 May, [facility] [place] [facility] [address] [id number] [place] [address]- 3104 May, [facility] [place] [facility] [address] [id number] [place] [address]- 0378 May, [facility] [place] [facility] [address] [id number] [place] [address]- 3535 May, [facility] [place] [facility] [address] [id number] [place] [address]- 8579 May, [facility] [place] [facility] [address] [id number] [place] [address]- 3544 17 May, 2013 [facility] [place] [facility] [address] [id number] [place] [address]- 8366 17 May, 2013 [facility] [place] [facility] [address] [id number] [place] [address]- 5056 16 May, 2013 [facility] [place] [facility] [address] [id number] [place] [address]- 3566 16 May, 2013 [facility] [place] [facility] [address] [id number] [place] [address]- 6636 16 May, 2013 [facility] [place] [facility] [address] [id number] [place] [address]- 8657 16 May, 2013 [facility] [place] [facility] [address] [id number] [place] [address]- 9162 08 May, 2013 [facility] [place] [facility] [address] [id number] [place] [address]- 1836 08 May, 2013 [facility] [place] [facility] [address] [id number] [place] [address]- 8615 May, [facility] [place] [facility] [address] [id number] [place] [address]- 5899 07 May, 2013 [facility] [place] [facility] [address] [id number] [place] [address]- 2081 Apr, [facility] [place] [facility] [address] [id number] [place] [address]- 1179 27 Apr, 2013 [facility] [place] [facility] [address] [id number] [place] [address]- 6303 27 Apr, 2013 [facility] [place] [facility] [address] [id number] [place] [address]- 8588 27 Apr, 2013 [facility] [place] [facility] [address] [id number] [place] [address]- 5159 20 Apr, 2013 [facility] [place] [facility] [address] [id number] [place] [address]- 8158 20 Apr, 2013 [facility] [address] [facility] [id number], [place] [address]- 0999 19 Apr, 2013 [facility] [address] [facility] [id number], [place] [address]- 8088 19 Apr, 2013 [facility] [address] [facility] [id number], [place] [address]- 3520 19 Apr, 2013 [facility] [address] [facility] [id number], [place] [address]- 2287 19 Apr, 2013 [facility] [address] [facility] [id number], [place] [address]- 5828 19 Apr, 2013 [facility] [address] [facility] [id number], [place] [address]- 8791 19 Apr, 2013 [facility] [address] [facility] [id number], [place] [address]- 9082 14 Apr, 2013 [facility] [address] [facility] [id number], [place] [address]- 9874 14 Apr, 2013 [facility] [address] [facility] [id number], [place] [address]- 7860 13 Apr, 2013 [facility] [address] [facility] [id number], [place] [address]- 4212 12 Apr, 2013 [facility] [address] [facility] [id number], [place] [address]- 5340 12 Apr, 2013 IMMUNIZATIONS No Known Immunizations SOCIAL HISTORY Never Assessed REASON FOR VISIT Diazepam PLAN OF CARE VITAL SIGNS MEDICATIONS Medication [...]
[2018-06-26] MEDS ORDERED: HURRICAINE EXT TUBE (BENZOCAINE) XX PRN (10:15)
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
--- OUTSIDE RECORDS SUMMARY | 2018-06-26 10:16 | XMS REPORT ---
Author Author RAHEEM WATKINS [facility] Address [address] [place] [address] Care Team Providers Care Housing Installer Name Role Phone RAHEEM WATKINS Unavailable PROBLEMS Type Condition ICD9-CM Code XVQ32-SE Code Onset Dates Condition Status SNOMED Code Problem Episodic atrial fibrillation I48.0 Active 746094824 Problem Diabetes E11.9 Active 87029622 Problem CHF (congestive heart failure) I50.9 Active 51988262 Problem Non-ischemic cardiomyopathy I42.9 Active 53131175 Problem Mixed hyperlipidemia E78.2 Active 555494625 Problem Other insomnia G47.09 Active 741314369 Problem Essential hypertension I10 Active 18444387 Problem Fibromyalgia M79.7 Active 052286436 Problem Arthritis M19.90 Active 8779461 Problem Hypothyroidism, unspecified type E03.9 Active [id number] ALLERGIES No Information ENCOUNTERS Encounter Location Date Diagnosis [place] [address] [address] June, Fibromyalgia M79.7 [facility] [address] [address] Apr, Fibromyalgia M79.7 [facility] [address] [address]- [address] 2017 Penetrating wound T14.8XXA and Encounter for immunization Z23 [facility] [address] [address]- [address] Mar, [facility] [address] [address] Feb, [place] [id number] [address] Feb, Fibromyalgia M79.7 [facility] [address] [place] [id number] [place] [address]687- 2[address] Jan, [facility] [address] [id number] [place] [address] 23588- 6321 Jan, Fibromyalgia M79.7 [facility] [address] [place] [id number] [place] [address]28- 2924 Jan, [facility] [address] [address]- [address] Dec, Fibromyalgia M79.7 [facility] [address] [place] [id number] [place] [address] 8[address]12- 1551 Dec, [facility] [address] [address]- [address] Dec, [facility] [id number] [place] [address]- 4205 Dec, Mixed hyperlipidemia E78.2 and Other insomnia G47.09 [facility] [id number] [place] [address] 84058- 2947 Dec, [facility] [address] [place] [place] [id number] [place] [address] 56503- 4573 Dec, Encounter for immunization Z23 ; Diabetes E11.9 ; Hypothyroidism, unspecified type E03.9 ; Essential hypertension I10 ; Fever in other diseases R50.81 ; CHF (congestive heart failure) I50.9 ; Fibromyalgia M79.7 and Arthritis M19.90 [facility] [id number] [place] [address]34- 4916 Aug, [facility] [id number] [place] [address] 27571- 8022 June, [facility] [address] [place] [id number] [place] [address] 30106- 1887 Apr, [facility] [address] [place] [id number] [place] [address] 46947- 2976 Apr, CHF (congestive heart failure) I50.9 [facility] [address] [place] [id number] [place] [address] 48043- 2031 Apr, Fibromyalgia M79.7 [facility] [address] [place] [id number] [place] [address]51 2546 08 Mar, 2016 Fibromyalgia M79.7 [facility] [address] [place] [id number] [place] [address] 72921 254 Mar, [facility] [address] 7[address]- 9[address] Mar, Fibromyalgia M79.7 [facility] [address] 023[address]- 5[address] Feb, Diabetes E11.9 ; Hypothyroidism, unspecified type E03.9 ; CHF (congestive heart failure) I50.9 ; Fibromyalgia M79.7 ; Encounter for immunization Z23 and Essential hypertension I10 [facility] [address] [address]- 24[address] Jan, CHF (congestive heart failure) I50.9 [facility] [address] [place] [place] [id number] [place] [address] 23657- 1231 Dec, [facility] [address] [address]40- 7675 Sep, [facility] [id number] [place] [address] 53019- 0030 Sep, [facility] [address] [place] [id number] [place] [address] 68330- 3316 Sep, Diabetes E11.9 and Fibromyalgia M79.7 [facility] [address] [place] [place] [id number] [place] [address] 86856- 5565 Jul, CHF (congestive heart failure) I50.9 [facility] [address] [place] [id number] [place] [address] 88391- 5582 June, CHF (congestive heart failure) I50.9 [facility] [address] [place] [address]- 69[address] 18 Feb, 2015 [facility] [id number] [place] [address] 16036- 7798 Feb, Diabetes E11.9 [facility] [address] [place] [id number] [place] [address] 53957- 4790 13 Feb, 2015 [facility] [address] [place] [place] [id number] [place] [address] 11681- 7884 Feb, CHF (congestive heart failure) I50.9 ; Prostatitis N41.9 ; Non-ischemic cardiomyopathy I42.9 and Episodic atrial fibrillation I48.0 [facility] [address] [place] [place] [id number] [place] [address] 92284- 6267 Dec, [facility] [address] [place] [id number] [place] [address] 78834- 6944 Dec, [facility] [address] [place] [id number] [place] [address] 01950- 0466 Jul, [facility] [id number] [place] [address] 03857- 6481 Jul, [facility] [address] [place] [id number] [place] [address] 70689- 0927 May, [facility] [address] [address]- 3472 May, [facility] [id number] [place] [address] 40208- 6208 May, [facility] [address], [place] [address]- 8192 May, [facility] [address] [place] [id number] [place] [address] 42421- 7371 Apr, [facility] [address], [place] [address]- 4309 Mar, [facility] [id number] [place] [address] 67691- 2520 Mar, [facility] [place] [facility] [address] [id number] [place] [address]- 5139 Dec, [facility] [place] [facility] [address] [id number] [place] [address]- 5877 Dec, [facility] [place] [facility] [address] [id number] [place] [address]- 5877 Dec, [facility] [place] [facility] [address] [id number] [place] [address]- 2948 Dec, [facility] [place] [facility] [address] [id number] [place] [address]- 8930 Dec, [facility] [place] [facility] [address] [id number] [place] [address]- 5298 Dec, [facility] [place] [facility] [address] [id number] [place] [address]- 3347 Dec, [facility] [place] [facility] [address] [id number] [place] [address]- 9816 Dec, [facility] [place] [facility] [address] [id number] [place] [address]- 8834 Dec, [facility] [place] [facility] [address] [id number] [place] [address]- 7086 Dec, [facility] [place] [facility] [address] [id number] [place] [address]- 4374 Nov, [facility] [place] [facility] [address] [id number], [place] [address]- 1989 Nov, [facility] [place] [facility] [address] [id number] [place] [address]- 4384 Nov, [facility] [place] [facility] [address] [id number] [place] [address]- 7089 Nov, [facility] [place] [facility] [address] [id number], [place] [address]- 1822 Nov, [facility] [place] [facility] [address] [id number], [place] [address]- 0738 14 Nov, 2013 [facility] [place] [facility] [address] [id number] [place] [address]- 3413 09 Nov, 2013 [facility] [place] [facility] [address] [id number] [place] [address]- 1431 Nov, 2013 [facility] [place] [facility] [address] [id number] [place] [address]- 6697 Nov, 2013 [facility] [place] [facility] [address] [id number] [place] [address]- 1161 Nov, 2013 [facility] [place] [facility] [address] [id number] [place] [address]- 3157 Nov, 2013 [facility] [place] [facility] [address] [id number] [place] [address]- 6748 Nov, 2013 [facility] [place] [facility] [address] [id number], [place] [address]- 7240 Sep, 2013 [facility] [place] [facility] [address] [id number], [place] [address]- 2023 23 Sep, 2013 [facility] [place] [facility] [address] [id number] [place] [address]- 6199 18 Sep, 2013 [facility] [place] [facility] [address] [id number] [place] [address]- 0355 17 Sep, 2013 [facility] [place] [facility] [address] [id number] [place] [address]- 8153 17 Sep, 2013 [facility] [place] [facility] [address] [id number], [place] [address]- 1917 09 Sep, 2013 [facility] [place] [facility] [address] [id number] [place] [address]- 4901 09 Sep, 2013 [facility] [place] [facility] [address] [id number], [place] [address]- 2561 Jul, [facility] [place] [facility] [address] [id number], [place] [address]- 1824 Jul, [facility] [place] [facility] [address] [id number] [place] [address]- 5840 Jul, [facility] [place] [facility] [address] [id number] [place] [address]- 2755 Jul, [facility] [place] [facility] [address] [id number] [place] [address]- 5313 Jul, [facility] [place] [facility] [address] [id number] [place] [address]- 5975 Jul, [facility] [place] [facility] [address] [id number] [place] [address]- 7119 Jul, [facility] [place] [facility] [address] [id number] [place] [address]- 6474 Jul, [facility] [place] [facility] [address] [id number] [place] [address]- 6008 June, [facility] [place] [facility] [address] [id number] [place] [address]- 8491 June, [facility] [place] [facility] [address] [id number] [place] [address]- 1528 June, [facility] [place] [facility] [address] [id number] [place] [address]- 0684 June, [facility] [place] [facility] [address] [id number] [place] [address]- 4525 June, [facility] [place] [facility] [address] [id number] [place] [address]- 2845 June, [facility] [place] [facility] [address] [id number] [place] [address]- 6720 June, [facility] [place] [facility] [address] [id number] [place] [address]- 5004 June, [facility] [place] [facility] [address] [id number] [place] [address]- 3698 June, [facility] [place] [facility] [address] [id number] [place] [address]- 7849 June, [facility] [address] [id number] [place] [address]- 6455 June, [facility] [place] [facility] [address] [id number] [place] [address]- 8489 June, [facility] [place] [facility] [address] [id number] [place] [address]- 5079 June, [facility] [place] [facility] [address] [id number] [place] [address]- 7308 June, [facility] [place] [facility] [address] [id number] [place] [address]- 8325 May, [facility] [place] [facility] [address] [id number] [place] [address]- 6418 May, [facility] [place] [facility] [address] [id number] [place] [address]- 9028 May, [facility] [place] [facility] [address] [id number] [place] [address]- 4917 May, [facility] [place] [facility] [address] [id number] [place] [address]- 4091 May, [facility] [place] [facility] [address] [id number] [place] [address]- 1267 May, [facility] [place] [facility] [address] [id number] [place] [address]- 8153 May, [facility] [place] [facility] [address] [id number], [place] [address]- 0630 May, [facility] [place] [facility] [address] [id number] [place] [address]- 2374 May, [facility] [place] [facility] [address] [id number] [place] [address]- 9044 May, [facility] [place] [facility] [address] [id number] [place] [address]- 2347 May, [facility] [place] [facility] [address] [id number] [place] [address]- 1669 16 May, 2013 [facility] [place] [facility] [address] [id number] [place] [address]- 1086 08 May, 2013 [facility] [place] [facility] [address] [id number] [place] [address]- 4626 08 May, 2013 [facility] [place] [facility] [address] [id number] [place] [address]- 5506 07 May, 2013 [facility] [place] [facility] [address] [id number] [place] [address]- 1732 07 May, 2013 [facility] [place] [facility] [address] [id number] [place] [address]- 4671 27 Apr, 2013 [facility] [place] [facility] [address] [id number] [place] [address]- 0573 27 Apr, 2013 [facility] [place] [facility] [address] [id number] [place] [address]- 2611 27 Apr, 2013 [facility] [place] [facility] [address] [id number] [place] [address]- 5501 27 Apr, 2013 [facility] [place] [facility] [address] [id number] [place] [address]- 8692 20 Apr, 2013 [facility] [place] [facility] [address] [id number] [place] [address]- 6866 20 Apr, 2013 [facility] [place] [facility] [address] [id number] [place] [address]- 2750 19 Apr, 2013 [facility] [place] [facility] [address] [id number] [place] [address]- 4092 19 Apr, 2013 [facility] [place] [facility] [address] [id number] [place] [address]- 2085 19 Apr, 2013 [facility] [place] [facility] [address] [id number] [place] [address]- 4129 19 Apr, 2013 [facility] [place] [facility] [address] [id number] [place] [address]- 6472 Apr, [facility] [address] [facility] [id number], [place] [address]- 6265 Apr, [facility] [address] [id number], [place] [address]- 4627 Apr, [facility] [address], [place] [address]- 3540 Apr, [facility] [address], [place] [address]- 5398 Apr, [facility] [id number], [place] [address]- 1924 Apr, [facility] [id number], [place] [address]- 4867 Apr, IMMUNIZATIONS No Known Immunizations SOCIAL HISTORY [...]
--- OUTSIDE RECORDS SUMMARY | 2018-06-26 10:17 | XMS REPORT | Continuity of Care Document ---
Author Organization Unknown Address Unknown Allergies Active Description Code Type Severity Reaction Onset Reported/Identified Relationship to Patient Clinical Status Yes Coreg Drug Allergy N/A N/A 06/03/2013 Yes CRILL OIL CRILL OIL Mild N/A 06/14/2013 Yes carvedilol [id number] Drug Allergy Moderate N/A 12/12/2017 Yes warfarin [id number] Drug Allergy Mild ULCERS 12/12/2017 Medications There is no data. Problems Date Dx Coded Attending Type Code Diagnosis Diagnosed By 05/08/2013 JAI DO WANDA K 244.9 UNSPECIFIED ACQUIRED HYPOTHYROIDISM 05/08/2013 VERGARA DO, WANDA K 401.1 BENIGN ESSENTIAL HYPERTENSION 05/08/2013 VERGARA DO, WANDA K 782.3 EDEMA 05/08/2013 VERGARA DO, WANDA K 786.09 RESPIRATORY ABNORMALITY OTHER 05/08/2013 VERGARA DO, WANDA K 244.9 UNSPECIFIED ACQUIRED HYPOTHYROIDISM 05/08/2013 VERGARA DO, WANDA K 401.1 BENIGN ESSENTIAL HYPERTENSION 05/08/2013 VERGARA DO, WANDA K 782.3 EDEMA 05/08/2013 VERGARA DO, WANDA K 786.09 RESPIRATORY ABNORMALITY OTHER 05/08/2013 VERGARA DO, WANDA K 244.9 UNSPECIFIED ACQUIRED HYPOTHYROIDISM 05/08/2013 VERGARA DO, WANDA K 401.1 BENIGN ESSENTIAL HYPERTENSION 05/08/2013 VERGARA DO, WANDA K 782.3 EDEMA 05/08/2013 VERGARA DO, WANDA K 786.09 RESPIRATORY ABNORMALITY OTHER 05/08/2013 VERGARA DO, WANDA K 244.9 UNSPECIFIED ACQUIRED HYPOTHYROIDISM 05/08/2013 VERGARA DO, WANDA K 401.1 BENIGN ESSENTIAL HYPERTENSION 05/08/2013 VERGARA DO, WANDA K 782.3 EDEMA 05/08/2013 VERGARA DO, WANDA K 786.09 RESPIRATORY ABNORMALITY OTHER 05/08/2013 CASSIA CESAR APRN 244.9 UNSPECIFIED ACQUIRED HYPOTHYROIDISM 05/08/2013 CASSIA CESAR APRN 401.1 BENIGN ESSENTIAL HYPERTENSION 05/08/2013 CASSIA CESAR APRN 782.3 EDEMA 05/08/2013 CASSIA CESAR APRN T 786.09 RESPIRATORY ABNORMALITY OTHER 05/08/2013 ALBA FARIAS MD N 244.9 UNSPECIFIED ACQUIRED HYPOTHYROIDISM 05/08/2013 ALBA FARIAS MD N 401.1 BENIGN ESSENTIAL HYPERTENSION 05/08/2013 ALBA FARIAS MD N 782.3 EDEMA 05/08/2013 ALBA FARIAS MD N 786.09 RESPIRATORY ABNORMALITY OTHER 05/08/2013 VERGARA DO, WANDA K 244.9 UNSPECIFIED ACQUIRED HYPOTHYROIDISM 05/08/2013 VERGARA DO, WANDA K 401.1 BENIGN ESSENTIAL HYPERTENSION 05/08/2013 VERGARA DO, WANDA K 782.3 EDEMA 05/08/2013 VERGARA DO, WANDA K 786.09 RESPIRATORY ABNORMALITY OTHER 05/08/2013 VERGARA DO, WANDA K 244.9 UNSPECIFIED ACQUIRED HYPOTHYROIDISM 05/08/2013 VERGARA DO, WANDA K 401.1 BENIGN ESSENTIAL HYPERTENSION 05/08/2013 VERGARA DO, WANDA K 782.3 EDEMA 05/08/2013 VERGARA DO, WANDA K 786.09 RESPIRATORY ABNORMALITY OTHER 05/08/2013 VERGARA DO, WANDA K 244.9 UNSPECIFIED ACQUIRED HYPOTHYROIDISM 05/08/2013 VERGARA DO, WANDA K 401.1 BENIGN ESSENTIAL HYPERTENSION 05/08/2013 VERGARA DO, WANDA K 782.3 EDEMA 05/08/2013 VERGARA DO, WANDA K 786.09 RESPIRATORY ABNORMALITY OTHER 05/08/2013 SABRINA BID CLERK, IMANI R 244.9 UNSPECIFIED ACQUIRED HYPOTHYROIDISM 05/08/2013 SABRINA BID CLERK, IMANI R 401.1 BENIGN ESSENTIAL HYPERTENSION 05/08/2013 SABRINA PORTERN, IMANI R 782.3 EDEMA 05/08/2013 SABRINA BID CLERK, IMANI R 786.09 RESPIRATORY ABNORMALITY OTHER 05/08/2013 VERGARA DO, WANDA K 244.9 UNSPECIFIED ACQUIRED HYPOTHYROIDISM 05/08/2013 VERGARA DO, WANDA K 401.1 BENIGN ESSENTIAL HYPERTENSION 05/08/2013 VERGARA DO, WANDA K 782.3 EDEMA 05/08/2013 VERGARA DO, WANDA K 786.09 RESPIRATORY ABNORMALITY OTHER 05/08/2013 RAHEEM WATKINS MD 244.9 UNSPECIFIED ACQUIRED HYPOTHYROIDISM 05/08/2013 RAHEEM WATKINS MD 401.1 BENIGN ESSENTIAL HYPERTENSION 05/08/2013 RAHEEM WATKINS MD 782.3 EDEMA 05/08/2013 RAHEEM WATKINS MD 786.09 RESPIRATORY ABNORMALITY OTHER 05/08/2013 AMADAOksana BID CLERK, MARCK L 244.9 UNSPECIFIED ACQUIRED HYPOTHYROIDISM 05/08/2013 ROCCO BID CLERK, MARCK L 401.1 BENIGN ESSENTIAL HYPERTENSION 05/08/2013 AMADAL BID CLERK, MARCK L 782.3 EDEMA 05/08/2013 AMADAOksana BID CLERK, MARCK L 786.09 RESPIRATORY ABNORMALITY OTHER 05/08/2013 RAHEEM WATKINS MD 244.9 UNSPECIFIED ACQUIRED HYPOTHYROIDISM 05/08/2013 RAHEEM WATKINS MD 401.1 BENIGN ESSENTIAL HYPERTENSION 05/08/2013 RAHEEM WATKINS MD 782.3 EDEMA 05/08/2013 RAHEEM WATKINS MD 786.09 RESPIRATORY ABNORMALITY OTHER 05/15/2013 VERGARA DO, WANDA K 428.0 CONGESTIVE HEART FAILURE UNSPECIFIED 05/15/2013 VERGARA DO, WANDA K 792.1 NONSPECIFIC ABNORMAL FINDINGS IN STOOL CONTENTS 05/15/2013 VERGARA DO, WANDA K V76.51 COLON CANCER SCREENING 05/15/2013 VERGARA DO, WANDA K 428.0 CONGESTIVE HEART FAILURE UNSPECIFIED 05/15/2013 VERGARA DO, WANDA K 792.1 NONSPECIFIC ABNORMAL FINDINGS IN STOOL CONTENTS 05/15/2013 VERGARA DO, WANDA K V76.51 COLON CANCER SCREENING 05/15/2013 VERGARA DO, WANDA K 428.0 CONGESTIVE HEART FAILURE UNSPECIFIED 05/15/2013 VERGARA DO, WANDA K 792.1 NONSPECIFIC ABNORMAL FINDINGS IN STOOL CONTENTS 05/15/2013 VERGARA DO, WANDA K V76.51 COLON CANCER SCREENING 05/15/2013 CASSIA CESAR APRN 428.0 CONGESTIVE HEART FAILURE UNSPECIFIED 05/15/2013 CASSIA CESAR APRN 792.1 NONSPECIFIC ABNORMAL FINDINGS IN STOOL CONTENTS 05/15/2013 CASSIA CESAR APRN V76.51 COLON CANCER SCREENING 05/15/2013 ALBA FARIAS MD 428.0 CONGESTIVE HEART FAILURE UNSPECIFIED 05/15/2013 ALBA FARIAS MD 792.1 NONSPECIFIC ABNORMAL FINDINGS IN STOOL CONTENTS 05/15/2013 ALBA FARIAS MD V76.51 COLON CANCER SCREENING 05/15/2013 VERGARA DO WANDA K 428.0 CONGESTIVE HEART FAILURE UNSPECIFIED 05/15/2013 VERGARA DO WANDA K 792.1 NONSPECIFIC ABNORMAL FINDINGS IN STOOL CONTENTS 05/15/2013 VERGARA DO, WANDA K V76.51 COLON CANCER SCREENING 05/15/2013 VERGARA DO, WANDA K 428.0 CONGESTIVE HEART FAILURE UNSPECIFIED 05/15/2013 VERGARA DO, WANDA K 792.1 NONSPECIFIC ABNORMAL FINDINGS IN STOOL CONTENTS 05/15/2013 VERGARA DO, WANDA K V76.51 COLON CANCER SCREENING 05/15/2013 VERGARA DO, WANDA K 428.0 CONGESTIVE HEART FAILURE UNSPECIFIED 05/15/2013 VERGARA DO, WANDA K 792.1 NONSPECIFIC ABNORMAL FINDINGS IN STOOL CONTENTS 05/15/2013 VERGARA DO, WANDA K V76.51 COLON CANCER SCREENING 05/15/2013 SABRINA RIVERA IMANI R 428.0 CONGESTIVE HEART FAILURE UNSPECIFIED 05/15/2013 SABRINA RIVERA IMANI R 792.1 NONSPECIFIC ABNORMAL FINDINGS IN STOOL CONTENTS 05/15/2013 SABRINA RIVERA IMANI R V76.51 COLON CANCER SCREENING 05/15/2013 VERGARA DO, WANDA K 428.0 CONGESTIVE HEART FAILURE UNSPECIFIED 05/15/2013 VERGARA DO, WANDA K 792.1 NONSPECIFIC ABNORMAL FINDINGS IN STOOL CONTENTS 05/15/2013 VERGARA DO, WANDA K V76.51 COLON CANCER SCREENING 05/15/2013 RAHEEM WATKINS MD 428.0 CONGESTIVE HEART FAILURE UNSPECIFIED 05/15/2013 RAHEEM WATKINS MD 792.1 NONSPECIFIC ABNORMAL FINDINGS IN STOOL CONTENTS 05/15/2013 RAHEEM WATKINS MD V76.51 COLON CANCER SCREENING 05/15/2013 MARCK VALIENTE APRN 428.0 CONGESTIVE HEART FAILURE UNSPECIFIED 05/15/2013 MARCK VALIENTE APRN 792.1 NONSPECIFIC ABNORMAL FINDINGS IN STOOL CONTENTS 05/15/2013 MARCK VALIENTE APRN V76.51 COLON CANCER SCREENING 05/15/2013 RAHEEM WATKINS MD 428.0 CONGESTIVE HEART FAILURE UNSPECIFIED 05/15/2013 RAHEEM WATKINS MD 792.1 NONSPECIFIC ABNORMAL FINDINGS IN STOOL CONTENTS 05/15/2013 RAHEEM WATKINS MD V76.51 COLON CANCER SCREENING 05/23/2013 VERGARA DO WANDA K 491.22 OBSTRUCTIVE CHRONIC BRONCHITIS WITH ACUTE BRONCHITIS 05/23/2013 VERGARA DO WANDA K 794.31 NONSPECIFIC ABNORMAL ELECTROCARDIOGRAM (ECG) (EKG) 05/23/2013 PAUL VERGARA DOA K 491.22 OBSTRUCTIVE CHRONIC BRONCHITIS WITH ACUTE BRONCHITIS 05/23/2013 JAI BA WANDA K 794.31 NONSPECIFIC ABNORMAL ELECTROCARDIOGRAM (ECG) (EKG) 05/23/2013 CASSIA CESAR APRN 491.22 OBSTRUCTIVE CHRONIC BRONCHITIS WITH ACUTE BRONCHITIS 05/23/2013 CASSIA CESAR APRN 794.31 NONSPECIFIC ABNORMAL ELECTROCARDIOGRAM (ECG) (EKG) 05/23/2013 ALBA FARIAS MD 491.22 OBSTRUCTIVE CHRONIC BRONCHITIS WITH ACUTE BRONCHITIS 05/23/2013 ALBA FARIAS MD 794.31 NONSPECIFIC ABNORMAL ELECTROCARDIOGRAM (ECG) (EKG) 05/23/2013 VERGARA DO WANDA K 491.22 OBSTRUCTIVE CHRONIC BRONCHITIS WITH ACUTE BRONCHITIS 05/23/2013 VERGARA DO WANDA K 794.31 NONSPECIFIC ABNORMAL ELECTROCARDIOGRAM (ECG) (EKG) 05/23/2013 JAI BA WANDA K 491.22 OBSTRUCTIVE CHRONIC BRONCHITIS WITH ACUTE BRONCHITIS 05/23/2013 PAUL VERGARA DOA K 794.31 NONSPECIFIC ABNORMAL ELECTROCARDIOGRAM (ECG) (EKG) 05/23/2013 PAUL VERGARA DOA K 491.22 OBSTRUCTIVE CHRONIC BRONCHITIS WITH ACUTE BRONCHITIS 05/23/2013 JAI BA WANDA K 794.31 NONSPECIFIC ABNORMAL ELECTROCARDIOGRAM (ECG) (EKG) 05/23/2013 SABRINA RIVERA IMANI R 491.22 OBSTRUCTIVE CHRONIC BRONCHITIS WITH ACUTE BRONCHITIS 05/23/2013 CHIKIS BENNETT APRNINA R 794.31 NONSPECIFIC ABNORMAL ELECTROCARDIOGRAM (ECG) (EKG) 05/23/2013 PAUL VERGARA DOA K 491.22 OBSTRUCTIVE CHRONIC BRONCHITIS WITH ACUTE BRONCHITIS 05/23/2013 PAUL VERGARA DOA K 794.31 NONSPECIFIC ABNORMAL ELECTROCARDIOGRAM (ECG) (EKG) 05/23/2013 RAHEEM WATKINS MD 491.22 OBSTRUCTIVE CHRONIC BRONCHITIS WITH ACUTE BRONCHITIS 05/23/2013 RAHEEM WATKINS MD 794.31 NONSPECIFIC ABNORMAL ELECTROCARDIOGRAM (ECG) (EKG) 05/23/2013 MARCK VALIENTE APRN 491.22 OBSTRUCTIVE CHRONIC BRONCHITIS WITH ACUTE BRONCHITIS 05/23/2013 MARCK VALIENTE APRN 794.31 NONSPECIFIC ABNORMAL ELECTROCARDIOGRAM (ECG) (EKG) 05/23/2013 RAHEEM WATKINS MD1.22 OBSTRUCTIVE CHRONIC BRONCHITIS WITH ACUTE BRONCHITIS 05/23/2013 RAHEEM WATKINS MD4.31 NONSPECIFIC ABNORMAL ELECTROCARDIOGRAM (ECG) (EKG) 05/26/2013 RAHEEM WATKINS MD Ot 278.01 MORBID OBESITY 05/26/2013 RAHEEM WATKINS MD Ot 416.8 CHR PULMON HEART DIS NEC 05/26/2013 RAHEEM WATKINS MD Ot 425.4 PRIM CARDIOMYOPATHY NEC 05/26/2013 RAEHEM WATKINS MD Ot 427.32 ATRIAL FLUTTER 05/26/2013 RAHEEM WATKINS MD Ot 427.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 DYSRHYTHMIAS NEC 05/26/2013 RAHEEM WATKINS MD Ot 428.0 CONGESTIVE HEART FAILURE NOS 05/26/2013 RAHEEM WATKINS MD Ot 428.21 ACUTE SYSTOLIC HEART FAILURE 05/26/2013 RAHEEM WATKINS MD Ot 729.1 MYALGIA AND MYOSITIS NOS 05/26/2013 RAHEEM WATKINS MD Ot 780.79 OTH MALAISE FATIGUE 05/26/2013 RAHEEM WATKINS MD Ot 786.50 CHEST PAIN NOS 05/26/2013 RAHEEM WATKINS MD Ot 792.1 ABN FIND-STOOL CONTENTS 05/26/2013 RAHEEM WATKINS MD Ot V58.69 OT MED,LT,CURRENT USE 05/26/2013 RAHEEM WATKINS MD Ot V85.38 BODY MASS INDEX 38.0-38.9, ADULT 06/03/2013 WANDA VERGARA DO 519.9 RESPIRATORY DISORDERS 06/03/2013 WANDA VERGARA DO 599.9 UROLOGIC DISORDERS 06/03/2013 WANDA VERGARA DO 790.93 PSA ELEVATED 06/03/2013 WANDA VERGARA DO V58.61 LONG-TERM (CURRENT) USE OF ANTICOAGULANTS 06/03/2013 CASSIA CESAR APRN 519.9 RESPIRATORY DISORDERS 06/03/2013 CASSIA CESAR APRN 599.9 UROLOGIC DISORDERS 06/03/2013 CASSIA CESAR APRN 790.93 PSA ELEVATED 06/03/2013 CASSIA CESAR APRN V58.61 LONG-TERM (CURRENT) USE OF ANTICOAGULANTS 06/03/2013 ALBA FARIAS MD 519.9 RESPIRATORY DISORDERS 06/03/2013 ALBA FARIAS MD 599.9 UROLOGIC DISORDERS 06/03/2013 ALBA FARIAS MD 790.93 PSA ELEVATED 06/03/2013 ALBA FARIAS MD V58.61 LONG-TERM (CURRENT) USE OF ANTICOAGULANTS 06/03/2013 VERGARA DO, WANDA K 519.9 RESPIRATORY DISORDERS 06/03/2013 VERGARA DO, WANDA K 599.9 UROLOGIC DISORDERS 06/03/2013 VERGARA DO, WANDA K 790.93 PSA ELEVATED 06/03/2013 VERGARA DO, WANDA K V58.61 LONG-TERM (CURRENT) USE OF ANTICOAGULANTS 06/03/2013 VERGARA DO, WANDA K 519.9 RESPIRATORY DISORDERS 06/03/2013 VERGARA DO, WANDA K 599.9 UROLOGIC DISORDERS 06/03/2013 VERGARA DO, WANDA K 790.93 PSA ELEVATED 06/03/2013 VERGARA DO, WANDA K V58.61 LONG-TERM (CURRENT) USE OF ANTICOAGULANTS 06/03/2013 VERGARA DO, WANDA K 519.9 RESPIRATORY DISORDERS 06/03/2013 VERGARA DO, WANDA K 599.9 UROLOGIC DISORDERS 06/03/2013 VERGARA DO, WANDA K 790.93 PSA ELEVATED 06/03/2013 VERGARA DO, WANDA K V58.61 LONG-TERM (CURRENT) USE OF ANTICOAGULANTS 06/03/2013 SABRINA BID CLERK, IMANI R 519.9 RESPIRATORY DISORDERS 06/03/2013 SABRINA BID CLERK, IMANI R 599.9 UROLOGIC DISORDERS 06/03/2013 SABRINA BID CLERK, IMANI R 790.93 PSA ELEVATED 06/03/2013 SABRINA BID CLERK, IMANI R V58.61 LONG-TERM (CURRENT) USE OF ANTICOAGULANTS 06/03/2013 VERGARA DO, WANDA K 519.9 RESPIRATORY DISORDERS 06/03/2013 VERGARA DO, WANDA K 599.9 UROLOGIC DISORDERS 06/03/2013 VERGARA DO, WANDA K 790.93 PSA ELEVATED 06/03/2013 VERGARA DO, WANDA K V58.61 LONG-TERM (CURRENT) USE OF ANTICOAGULANTS 06/03/2013 RAHEEM WATKINS MD 519.9 RESPIRATORY DISORDERS 06/03/2013 RAHEEM WATKINS MD 599.9 UROLOGIC DISORDERS 06/03/2013 RAHEEM WATKINS MD 790.93 PSA ELEVATED 06/03/2013 RAHEEM WATKINS MD V58.61 LONG-TERM (CURRENT) USE OF ANTICOAGULANTS 06/03/2013 MARCK VALIENTE APRN 519.9 RESPIRATORY DISORDERS 06/03/2013 MARCK VALIENTE APRN 599.9 UROLOGIC DISORDERS 06/03/2013 MARCK VALIENTE APRN L 790.93 PSA ELEVATED 06/03/2013 MARCK VALIENTE APRN V58.61 LONG-TERM (CURRENT) USE OF ANTICOAGULANTS 06/03/2013 RAHEEM WATKINS MD 519.9 RESPIRATORY DISORDERS 06/03/2013 RAHEEM WATKINS MD 599.9 UROLOGIC DISORDERS 06/03/2013 RAHEEM WATKINS MD 790.93 PSA ELEVATED 06/03/2013 RAHEEM WATKINS MD V58.61 LONG-TERM (CURRENT) USE OF ANTICOAGULANTS 06/12/2013 CASSIA CESAR APRN 780.79 fatigue 06/12/2013 ALBA FARIAS MD 780.79 FATIGUE 06/12/2013 VERGARA DO WANDA K 780.79 FATIGUE 06/12/2013 VERGARA DO WANDA K 780.79 FATIGUE 06/12/2013 VERGARA DO WANDA K 780.79 FATIGUE 06/12/2013 IMANI BENNETT APRN R 780.79 FATIGUE 06/12/2013 PAUL VERGARA DOA K 780.79 FATIGUE 06/12/2013 RAHEEM WATKINS MD 780.79 FATIGUE 06/12/2013 MARCK VALIENTE APRN 780.79 FATIGUE 06/12/2013 RAHEEM WATKINS MD 780.79 FATIGUE 06/17/2013 RAHEEM WATKINS MD Ot 038.9 SEPTICEMIA NOS 06/17/2013 RAHEEM WATKINS MD Ot 041.04 STREPTOCOCCUS INFECTION NOS, GROUP D (EN 06/17/2013 RAHEEM WATKINS MD Ot 246.9 DISORDER OF THYROID NOS 06/17/2013 RAHEEM WATKINS MD Ot 276.1 HYPOSMOLALITY 06/17/2013 RAHEEM WATKINS MD Ot 278.00 OBESITY, NOS 06/17/2013 RAHEEM WATKINS MD Ot 425.4 PRIM CARDIOMYOPATHY NEC 06/17/2013 RAHEEM WATKINS MD Ot 427.32 ATRIAL FLUTTER 06/17/2013 RAHEEM WATKINS MD Ot 428.0 CONGESTIVE HEART FAILURE NOS 06/17/2013 RAHEEM WATKINS MD Ot 428.21 ACUTE SYSTOLIC HEART FAILURE 06/17/2013 RAHEEM WATKINS MD Ot 493.20 CHRONIC OBSTRUCTIVE ASTHMA, NOS 06/17/2013 RAHEEM WATKINS MD Ot 599.0 URIN TRACT INFECTION NOS 06/17/2013 RAHEEM WATKINS MD Ot 600.00 HYPERTROPHY (BENIGN) OF PROSTATE W/O URI 06/17/2013 RAHEEM WATKINS MD Ot 693.0 DRUG DERMATITIS NOS 06/17/2013 RAHEEM WATKINS MD Ot 729.1 MYALGIA AND MYOSITIS NOS 06/17/2013 RAHEEM WATKINS MD Ot 790.29 OTHER ABNORMAL GLUCOSE 06/17/2013 RAHEEM WATKINS MD Ot 995.91 SEPSIS 06/17/2013 RAHEEM WATKINS MD Ot E934.2 ADV EFF ANTICOAGULANTS 06/17/2013 RAHEEM WATKINS MD Ot V03.82 PROPHYLACTIC VACC AGAINST STREPTOCOCCUS 06/17/2013 RAHEEM WATKINS MD Ot V85.34 BODY MASS INDEX 34.0-34.9, ADULT 07/17/2013 VERGARA DO WANDA K 425.4 CARDIOMYOPHATHY 07/17/2013 JAI BA WANDA K 427.31 ATRIAL FIBRILLATION 07/17/2013 JAI BA WANDA K 425.4 CARDIOMYOPHATHY 07/17/2013 VERGARA , WANDA K 427.31 ATRIAL FIBRILLATION 07/17/2013 VERGARA DO WANDA K 425.4 CARDIOMYOPHATHY 07/17/2013 VERGARA , WANDA K 427.31 ATRIAL FIBRILLATION 07/17/2013 IMANI BENNETT APRN R 425.4 CARDIOMYOPHATHY 07/17/2013 IMANI BENNETT APRN R 427.31 ATRIAL FIBRILLATION 07/17/2013 VERGARA DO WANDA K 425.4 CARDIOMYOPHATHY 07/17/2013 JAI BA WANDA K 427.31 ATRIAL FIBRILLATION 07/17/2013 RAHEEM WATKINS MD 425.4 CARDIOMYOPHATHY 07/17/2013 RAHEEM WATKINS MD 427.31 ATRIAL FIBRILLATION 07/17/2013 MARCK VALIENTE APRN 425.4 CARDIOMYOPHATHY 07/17/2013 MARCK VALIENTE APRN L 427.31 ATRIAL FIBRILLATION 07/17/2013 RAHEEM WATKINS MD 425.4 CARDIOMYOPHATHY 07/17/2013 RAHEEM WATKINS MD 427.31 ATRIAL FIBRILLATION 11/13/2013 IMANI BENNETT APRN R 786.2 COUGH 11/13/2013 WANDA VERGARA DO 786.2 COUGH 11/13/2013 JUNE TANG, RAHEEM 786.2 COUGH 11/13/2013 ROCCO RIVERAMARCK 786.2 COUGH 11/13/2013 JUNE TANG, RAHEEM 786.2 COUGH 12/05/2013 JUNE TANG, RAHEEM V04.81 FLU SHOT 12/05/2013 ROCCO RIVERA MARCK L V04.81 FLU SHOT 12/05/2013 JUNE TAGN, RAHEEM V04.81 FLU SHOT 04/08/2014 JUNE TANG, RAHEEM 729.1 MYALGIA AND MYOSITIS UNSPECIFIED 06/30/2017 HERON TANG FACC, ALI FACP CCDS Ot 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 06/30/2017 HERON TANG FACC, ALI FACP CCDS Ot 397.0 TRICUSPID VALVE DISEASE 06/30/2017 HERON TANG FACC, ALI FACP CCDS Ot 425.4 PRIM CARDIOMYOPATHY NEC 06/30/2017 HERON TANG FACC, ALI FACP CCDS Ot 427.32 ATRIAL FLUTTER 07/17/2017 HERON TANG FACC, ALI FACP CCDS Ot 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 07/17/2017 HERON TANG FACC, ALI FACP CCDS Ot 397.0 TRICUSPID VALVE DISEASE 07/17/2017 HERON TANG FACC, ALI FACP CCDS Ot 425.4 PRIM CARDIOMYOPATHY NEC 07/17/2017 HERON TANG FACC, ALI FACP CCDS Ot 427.32 ATRIAL FLUTTER 07/25/2017 HERON TANG FACC, ALI FACP CCDS Ot 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 07/25/2017 HERON TANG FACC, ALI FACP CCDS Ot 397.0 TRICUSPID VALVE DISEASE 07/25/2017 HERON TANG FACC, ALI FACP CCDS Ot 425.4 PRIM CARDIOMYOPATHY NEC 07/25/2017 HERON TANG FACC, ALI FACP CCDS Ot 427.32 ATRIAL FLUTTER 07/25/2017 HERON PARKSC, ALI FACP CCDS Ot E03.9 HYPOTHYROIDISM, UNSPECIFIED 07/25/2017 HERON TANG FACC, ALI FACP CCDS Ot E66.9 OBESITY, UNSPECIFIED 07/25/2017 HERON TANG FACC, ALI FACP CCDS Ot I42.0 DILATED CARDIOMYOPATHY 07/25/2017 HERON MD FACC, ALI FACP CCDS Ot I48.91 UNSPECIFIED ATRIAL FIBRILLATION 07/25/2017 HERON TANG FACC, ALI FACP CCDS Ot I48.92 UNSPECIFIED ATRIAL FLUTTER 07/25/2017 HERON TANG FACC, ALI FACP CCDS Ot I50.22 CHRONIC SYSTOLIC (CONGESTIVE) HEART FAIL 07/25/2017 HERON TANG FACC, ALI FACP CCDS Ot Z68.36 BODY MASS INDEX (BMI) 36.0-36.9, ADULT 07/27/2017 HERON TANG FACC, ALI FACP CCDS Ot E03.9 HYPOTHYROIDISM, UNSPECIFIED 07/27/2017 HERON TANG FACC, ALI FACP CCDS Ot E66.9 OBESITY, UNSPECIFIED 07/27/2017 HERON TANG FACC, ALI FACP CCDS Ot I42.0 DILATED CARDIOMYOPATHY 07/27/2017 HERON TANG FACC, ALI FACP CCDS Ot I48.91 UNSPECIFIED ATRIAL FIBRILLATION 07/27/2017 HERON TANG FAC, ALI FACP CCDS Ot I48.92 UNSPECIFIED ATRIAL FLUTTER 07/27/2017 HERON TANG FAC, ALI FACP CCDS Ot I50.22 CHRONIC SYSTOLIC (CONGESTIVE) HEART FAIL 07/27/2017 HERON TANG FAC, ALI FACP CCDS Ot Z68.36 BODY MASS INDEX (BMI) 36.0-36.9, ADULT 09/12/2017 KEITH WILLINGHAM MD P Ot G47.33 OBSTRUCTIVE SLEEP APNEA (ADULT) (PEDIATR 09/12/2017 KEITH WILLINGHAM MD P Ot G47.10 HYPERSOMNIA, UNSPECIFIED 09/12/2017 KEITH WILLINGHAM MD P Ot G47.33 OBSTRUCTIVE SLEEP APNEA (ADULT) (PEDIATR 09/12/2017 KEITH WILLINGHAM MD P Ot I48.92 UNSPECIFIED ATRIAL FLUTTER 09/12/2017 KEITH WILLINGHAM MD P Ot I50.9 HEART FAILURE, UNSPECIFIED 09/13/2017 KEITH WILLINGHAM MD Ot G47.10 HYPERSOMNIA, UNSPECIFIED 09/13/2017 KEITH WILLINGHAM MD P Ot G47.33 OBSTRUCTIVE SLEEP APNEA (ADULT) (PEDIATR 09/13/2017 MAULIK TANG, KEITH Vergara Ot I48.92 UNSPECIFIED ATRIAL FLUTTER 09/13/2017 KEITH WILLINGHAM MD P Ot I50.9 HEART FAILURE, UNSPECIFIED 09/13/2017 KEITH WILLINGHAM MD Ot G47.10 HYPERSOMNIA, UNSPECIFIED 09/13/2017 KEITH WILLINGHAM MD Ot G47.33 OBSTRUCTIVE SLEEP APNEA (ADULT) (PEDIATR 09/13/2017 KEITH WILLINGHAM MD Ot I48.92 UNSPECIFIED ATRIAL FLUTTER 09/13/2017 KEITH WILLINGHAM MD Ot I50.9 HEART FAILURE, UNSPECIFIED 12/12/2017 SUE DICKERSON DO Ot Z01.818 ENCOUNTER FOR OTHER PREPROCEDURAL EXAMIN 06/19/2018 HERON TANG FACC, MONCHO PARKSP CCDS Ot 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 06/19/2018 HERON TANG FACC, MONCHO PARKSP CCDS Ot 397.0 TRICUSPID VALVE DISEASE 06/19/2018 HERON TANG FACC, MONCHO DYSON CCDS Ot 425.4 PRIM CARDIOMYOPATHY NEC 06/19/2018 MONCHO SHELBY MD, FACC, FACP CCDS Ot 427.32 ATRIAL FLUTTER 06/20/2018 SUE DICKERSON DO Ot Z01.818 ENCOUNTER FOR OTHER PREPROCEDURAL EXAMIN 06/21/2018 SUE DICKERSON DO Ot Z01.818 ENCOUNTER FOR OTHER PREPROCEDURAL EXAMIN Procedures Code Description [place] [address] ROUTINE VENIPUNCTURE 05/08/2013 47166 XRAY CHEST 2 VIEW 05/08/2013 78761 OXIMETRY 05/08/2013 7951137 GFR CALC (RESULT ONLY) 05/08/2013 29854 CMP 05/08/2013 63568 CBC 05/08/2013 54065 BNP 05/09/2013 43746 ROUTINE VENIPUNCTURE 05/15/2013 73909 HEMOCCULT 05/15/2013 96774 HEMOCCULT 05/15/2013 41690 BMP 05/15/2013 85271 CPK 05/15/2013 89845 BNP 05/15/2013 63768 OXIMETRY 05/15/2013 CARDIOLOG MONCHO SHELBY 05/15/2013 GENERAL S Sue Dickerson 05/15/2013 93906 ROUTINE VENIPUNCTURE 05/23/2013 32235 ROUTINE VENIPUNCTURE 05/23/2013 02289 EKG, TRACING 05/23/2013 17011 BMP 05/23/2013 70647 BNP 05/23/2013 10576 EKG, TRACING 05/23/2013 80366 OXIMETRY 05/23/2013 45435 OXIMETRY 05/23/2013 5557636 GFR CALC (RESULT ONLY) 05/23/2013 28449 BMP 05/23/2013 74267 BNP 05/23/2013 08834 ROUTINE VENIPUNCTURE 06/03/2013 42626 INR (IN HOUSE) 06/03/2013 86866 OXIMETRY 06/03/2013 40759 CBC 06/03/2013 0754550 GFR CALC (RESULT ONLY) 06/03/2013 18316 BMP 06/03/2013 90301 ROUTINE VENIPUNCTURE 06/12/2013 34741 INR (IN HOUSE) 06/12/2013 28680 CBC 06/12/2013 TICK TICKPANEL W/LYME 06/12/2013 06040 ROUTINE VENIPUNCTURE 06/28/2013 2299791 GFR CALC (RESULT ONLY) 06/28/2013 17550 CMP 06/28/2013 17808 TSH 06/28/2013 19131 OXIMETRY 07/03/2013 33563 OXIMETRY 07/17/2013 70200 ECHO 2D 08/13/2013 71355 OXIMETRY 11/13/2013 46193 UA W/ CULTURE IF INDICATED 11/13/2013 27945 CULTURE URINE 11/14/2013 67122 ROUTINE VENIPUNCTURE 12/05/2013 11299 UA LONG DIP 12/05/2013 33356 CBC 12/05/2013 05460 CMP 12/05/2013 9858095 GFR CALC (RESULT ONLY) 12/05/2013 89537 CRP 12/05/2013 74670 PSA TOTAL 12/05/2013 Results Test Result Range [facility] - 01/02/17 10:19 GLUCOSE 257 mg/dL 65-99 UREA NITROGEN (BUN) 18 mg/dL 7-25 CREATININE 0.83 mg/dL 0.70-1.25 eGFR NON-AFR. ETHIOPIAN 92 mL/min/1.73m2 > OR=60 eGFR 106 mL/min/1.73m2 > OR=60 BUN/CREATININE RATIO NOT APPLICABLE (calc) 6-22 SODIUM 137 mmol/L 135-146 POTASSIUM 4.1 mmol/L 3.5-5.3 CHLORIDE 98 mmol/L 98-110 CARBON DIOXIDE 31 mmol/L 20-31 CALCIUM 9.6 mg/dL 8.6-10.3 PROTEIN, TOTAL 8.0 g/dL 6.1-8.1 ALBUMIN 4.2 g/dL 3.6-5.1 GLOBULIN 3.8 g/dL (calc) 1.9-3.7 ALBUMIN/GLOBULIN RATIO 1.1 (calc) 1.0-2.5 BILIRUBIN, TOTAL 1.4 mg/dL 0.2-1.2 ALKALINE PHOSPHATASE 91 U/L 40-115 AST 58 U/L 10-35 ALT 62 U/L 9-46 DIGOXIN - 01/02/17 10:19 DIGOXIN <0.5 mcg/L 0.8-2.0 TSH - 09/04/17 12:20 TSH 7.43 mIU/L 0.40-4.50 CMP - 02/01/18 16:00 GLUCOSE 144 mg/dL 65-99 UREA NITROGEN (BUN) 24 mg/dL 7-25 CREATININE 1.06 mg/dL 0.70-1.25 eGFR NON-AFR. ETHIOPIAN 72 mL/min/1.73m2 > OR=60 eGFR 84 mL/min/1.73m2 > OR=60 BUN/CREATININE RATIO NOT APPLICABLE (calc) 6-22 SODIUM 139 mmol/L 135-146 POTASSIUM 4.3 mmol/L 3.5-5.3 CHLORIDE 96 mmol/L 98-110 CARBON DIOXIDE 35 mmol/L 20-32 CALCIUM 9.5 mg/dL 8.6-10.3 PROTEIN, TOTAL 7.6 g/dL 6.1-8.1 ALBUMIN 4.1 g/dL 3.6-5.1 GLOBULIN 3.5 g/dL (calc) 1.9-3.7 ALBUMIN/GLOBULIN RATIO 1.2 (calc) 1.0-2.5 BILIRUBIN, TOTAL 0.8 mg/dL 0.2-1.2 ALKALINE PHOSPHATASE 89 U/L 40-115 AST 33 U/L 10-35 ALT 35 U/L 9-46 TSH - 02/01/18 16:00 TSH 3.90 mIU/L 0.40-4.50 Encounters ACCT No. Visit Date/Time Discharge Status Pt. Type Provider Facility Loc./Unit Complaint [id number] 04/08/2014 10:11:00 04/08/2014 23:59:59 CLS Outpatient RAHEEM WATKINS MD [id number] 12/05/2013 14:35:00 12/05/2013 23:59:59 CLS Outpatient RAHEEM WATKINS MD [id number] 11/13/2013 10:34:00 11/13/2013 23:59:59 CLS Outpatient SABRINA PORTERNIMANI [id number] 10/10/2013 00:00:00 10/10/2013 23:59:59 CLS Outpatient JAI BA WANDA Rowley [id number] 08/13/2013 00:00:00 08/13/2013 23:59:59 CLS Outpatient JAI BA WANDA Rowley [id number] 07/17/2013 09:20:00 07/17/2013 23:59:59 CLS Outpatient JAI BA WANDA Rowley [id number] 07/03/2013 07:32:00 07/03/2013 23:59:59 CLS Outpatient ALBA FARIAS MD [id number] 06/12/2013 17:33:00 06/12/2013 23:59:59 CLS Outpatient CASSIA CESAR APRN [id number] 06/03/2013 09:47:00 06/03/2013 23:59:59 CLS Outpatient JAI BA WANDA Rowley [id number] 05/23/2013 08:47:00 05/23/2013 23:59:59 CLS Outpatient JAI BA WANDA Rowley [id number] 05/23/2013 08:47:00 05/23/2013 23:59:59 CLS Outpatient MARCK VALIENTE APRN [id number] 05/15/2013 10:34:00 05/15/2013 23:59:59 CLS Outpatient JAI BA WANDA Rowley [id number] 05/08/2013 13:09:00 05/08/2013 23:59:59 CLS Outpatient JAI BA WANDA Rowley [id number] 05/08/2013 13:09:00 05/08/2013 23:59:59 CLS Outpatient JAI BA WANDA Rowley [id number] 06/22/2018 11:20:00 06/22/2018 23:59:59 CLS Outpatient JUNE TANG, RAHEEM [facility]EAG[facility] [id number] 02/01/2018 15:20:00 Document Registration [id number] 09/04/2017 11:40:00 Document Registration [id number] 01/02/2017 09:20:00 Document Registration [id number] 06/20/2018 10:15:00 06/20/2018 12:35:00 DIS Outpatient SUE DICKERSON DO [facility] PREOP COLONOSCOPY/EGD [id number] 01/11/2018 14:34:00 01/11/2018 23:59:59 CLS Preadmit MONCHO SHELBY MD, FACC, FACP CCDS [facility] CARD ATRIAL FLUTTER [id number] 12/19/2017 11:00:00 12/19/2017 23:59:59 CLS Preadmit SUE DICKERSON DO [facility] ENDO BLOOD IN STOOLS [id number] 12/12/2017 05:44:00 12/12/2017 14:33:00 DIS Outpatient SUE DICKERSON DO [facility] PREOP COLONOSCOPY/EGD [id number] 10/09/2017 21:00:00 10/09/2017 23:59:59 CLS Preadmit KEITH WILLINGHAM MD [facility] SLEEP OBSTRUCTIVE SLEEP APNEA [id number] 09/12/2017 20:03:00 09/13/2017 06:30:00 DIS Outpatient KEITH WILLINGHAM MD [facility] SLEEP OBSTRUCTIVE SLEEP APNEA [id number] 07/25/2017 09:30:00 07/25/2017 23:59:59 CLS Preadmit KENDRA MARIE [facility] CARD I48.0 ATRIAL FLUTTER [id number] 07/25/2017 08:58:00 07/25/2017 12:23:00 DIS Outpatient MONCHO SHELBY MD, FACC, FACP CCDS [facility] CATH DILATED,NON ISCHEMIC CM,ATRIAL FLUTTER,LEG SWELLIN [id number] 08/09/2013 09:39:00 08/09/2013 23:59:59 CLS Outpatient MONCHO SHELBY MD, FACC, FACP CCDS [facility] CARD A FIB, CARDIOMYOPATHY [id number] 06/14/2013 03:24:00 06/17/2013 13:05:00 DIS Inpatient RAHEEM WATKINS MD [facility] CSD ELEVATED TROP,AMS, CELLULITIS,HYPONATREMIA,THYROID [id number] 05/23/2013 10:55:00 05/26/2013 13:07:00 DIS Outpatient RAHEEM WATKINS MD [facility] CATH HYPOXIA
[2018-06-26] MEDS ORDERED: HURRICAINE EXT TUBE (BENZOCAINE) ONE (10:29)
[2018-06-26] MEDS ORDERED: MIDAZOLAM 2 MG/2 ML (VERSED) VIAL ONE (10:34)
[2018-06-26] MEDS ORDERED: PROPOFOL INJECTION 50 ML IV ONE (10:34)
[2018-06-26 10:38] VITALS: BP 198/110
[2018-06-26] MEDS ORDERED: RT-ALBUTEROL SULF 2.5 MG/3 ML PRE-MIX VIAL INH ONE (11:00)
[2018-06-26] MEDS ORDERED: RT-ALBUTEROL SULF 2.5 MG/3 ML PRE-MIX VIAL ONE (11:10)
[2018-06-26] MEDS ORDERED: meTOprolol 5 MG/5 ML (LOPRESSOR) VIAL ONE (12:10)
[2018-06-26] MEDS ORDERED: hydrALAZINE (APESOLINE) 20 MG/ML VIAL ONE (12:14)
--- NOTE | 2018-06-26 12:15 | Progress Note-Post Operative ---
Post-Operative Progess Note Surgeon (s)/Camera Storage Clerk (s) Surgeon SUE DICKERSON DO Camera Storage Clerk: na Pre-Operative Diagnosis melena Post-Operative Diagnosis diverticulsois, cecal polyp, ge juntion mucosal changes, small h/h Procedure & Operative Findings Date of Procedure 06/26/18 Procedure Performed/Findings egd c biopsy and brushing of GE colonoscopy c hot bx polypectomy cecal polyp Anesthesia Type per mda Estimated Blood Loss Estimated blood loss (mL): none Specimens/Packing Specimens Removed ge, cecal polyp, brushing of ge SUE DICKERSON DO Jun 26, 2018 12:15
[2018-06-26] MEDS ORDERED: PANT40TA2 PO (12:16)
--- NOTE | 2018-06-26 12:18 | Discharge Inst-Simple/Standard ---
Discharge Inst-Standard Discharge Medications New, Converted or Re-Newed RX: Transmitted to Pharmacy Patient Instructions/Follow Up Plan of Care/Instructions/FU: 2 weeks Madhav Activity as Tolerated: Yes Discharge Diet: Regular Diet SUE DICKERSON DO Jun 26, 2018 12:18
[2018-06-26 12:35] VITALS: BP 182/82
[2018-06-26 13:15] VITALS: BP 99/62
[2018-06-26 13:30] VITALS: BP 99/62
--- NOTE | 2018-06-26 14:20 | Anesthesia-General Post-Op ---
MAC Patient Condition Mental Status/LOC: Same as Preop Cardiovascular: Satisfactory Nausea/Vomiting: Absent Respiratory: Satisfactory Pain: Controlled Complications: Absent Post Op Complications Complications None Follow Up Care/Instructions Patient Instructions None needed. Anesthesiology Discharge Order Discharge Order Patient is doing well, no complaints, stable vital signs, no apparent adverse anesthesia problems. No complications reported per nursing. EDUARDO DELEON CRNA Jun 26, 2018 14:20
--- NOTE | 2018-06-27 01:43 | OPERATIVE REPORT ---
DATE OF SERVICE: 06/26/2018 PREOPERATIVE DIAGNOSIS: Melena. POSTOPERATIVE DIAGNOSES: Diverticulosis, cecal polyp, GE junction, mucosal changes, small hiatal hernia. PROCEDURE: EGD with biopsy and brushings of GE junction, colonoscopy with hot biopsy polypectomy, cecal polyp. SURGEON: Sue Corey DO. ANESTHESIA: Per MDA. ESTIMATED BLOOD LOSS: None. COMPLICATIONS: None. INDICATIONS: The patient is a 68-year-old male with melena. He understands risks and benefits of procedures and wished to proceed with procedure. Consent was signed on the chart. DESCRIPTION OF PROCEDURE: The patient was taken to the endoscopy suite, placed in left lateral recumbent position. Timeout was performed. Scope was inserted in mouth, down the esophagus, stomach and into the duodenum without difficulty. There were no polyps, masses or ulcerations within the duodenum. Scope was slowly retracted back in the stomach where it was further insufflated. No polyps, masses or ulcerations or erythematous changes present. Scope was then retroflexed noting a small hiatal hernia. Scope was returned to its normal position. No other pathology noted. Scope was slowly directed back to the distal esophagus and GE junction. Mucosa changes present. Biopsy of GE junction was obtained. Also brushings were obtained. Scope was then slowly retracted back noting no other pathology. Digital rectal exam was performed. There are no palpable polyps, mass or ulcerations. The scope was inserted in the rectum and advanced all the way to the cecum with minimal difficulty. Prep was adequate. Scope was then slowly retracted back. There were no polyps, mass or ulcerations. There is a small polyp in the cecum, which hot biopsy polypectomy was performed. No other polyps, mass or ulcerations. The scope was then slowly retracted back. No polyps, masses or ulcerations in the ascending, transverse, descending and sigmoid colon. Throughout the entire colon, was a moderate amount of diverticulosis present. The scope was continuously retracted back into the rectum, where it was also retroflexed noting no other pathology. Scope was returned to its normal position, slowly withdrawn until completely removed. The patient tolerated procedure well without complications, taken to recovery room in stable condition. RECOMMENDATIONS: The patient started on Protonix 40 mg daily. We will plan on followup in 2 weeks to see how his symptoms are doing follow up on pathology cecal polyp, which hot biopsy polypectomy was performed. Job ID: [id number] DocumentID: [id number] Dictated Date: 06/26/2018 15:58:22 Shooter'S Helper Date: 06/27/2018 01:42:10 Dictated By: SUE COREY DO
== END 2018-06-26 13:40 | disposition home or self-care (01) ==
LOC: ENDO 10:04
PROVIDERS: ATTEND Surgery
DX: K63.5 Polyp of colon (principal); K57.30 Diverticulosis of large intestine without perforation or abscess without bleeding; K44.9 Diaphragmatic hernia without obstruction or gangrene; G47.33 Obstructive sleep apnea (adult) (pediatric); I11.0 Hypertensive heart disease with heart failure; I50.22 Chronic systolic (congestive) heart failure; I42.0 Dilated cardiomyopathy; I48.92 Unspecified atrial flutter; J45.909 Unspecified asthma, uncomplicated; E66.01 Morbid (severe) obesity due to excess calories; Z68.39 Body mass index [BMI] 39.0-39.9, adult; Z79.01 Long term (current) use of anticoagulants; Z79.899 Other long term (current) drug therapy
CPT/HCPCS: 94640

== ENCOUNTER → 2018-07-05 | Outpatient (CLI) | payer MEDICARE ==
[~2018-07-05] MED LIST changes: +PANT40TA2 PO
== END ==
LOC: CARD 13:24
PROVIDERS: ATTEND Internal Medicine Cardiovascular Disease
DX: I48.0 Paroxysmal atrial fibrillation (principal); I42.0 Dilated cardiomyopathy; G89.29 Other chronic pain; I50.22 Chronic systolic (congestive) heart failure; G47.33 Obstructive sleep apnea (adult) (pediatric); I07.1 Rheumatic tricuspid insufficiency
CPT/HCPCS: 93306

== ENCOUNTER → 2018-07-19 | Outpatient (CLI) | payer MEDICARE ==
[~2018-07-19] MED LIST changes: +APIX2.5T PO; +FURO80TA3 PO; +LISI40TA PO; +METO100T12 PO; +METO2.5T PO; +POTA10TA36 PO; +SPIR25TA PO; +SPIR50TA PO
[2018-07-19 16:35] LABS: POTASSIUM 4.8 MMOL/L (3.6-5.0)
[2018-07-19 16:36] LABS: CALCIUM 9.7 MG/DL (8.5-10.1); CREATININE SERUM 2.82 MG/DL (0.60-1.30); MAGNESIUM 1.7 MG/DL (1.8-2.4)
== END ==
LOC: LAB FS 15:44
PROVIDERS: ATTEND Nurse Practitioner Family
DX: I50.22 Chronic systolic (congestive) heart failure (principal)
CPT/HCPCS: 36415; 80048; 83735

== ENCOUNTER 2018-07-24 14:15 | Inpatient (IN) | payer MEDICARE ==
[~2018-07-24] VITALS: Ht 185.4 cm; Wt 153.8 kg
[2018-07-24] VITALS (7 sets, daily range): BP systolic 82–142; BP diastolic 40–76
[~2018-07-24 14:15] MED LIST changes: -APIX2.5T PO; -FURO80TA3 PO; -LISI40TA PO; -METO100T12 PO; -METO2.5T PO; -POTA10TA36 PO; -SPIR25TA PO; -SPIR50TA PO
[2018-07-24] MEDS ORDERED: POTA10TA36 PO (14:52)
[2018-07-24] MEDS ORDERED: LISI40TA PO (14:52)
[2018-07-24] MEDS ORDERED: SPIR50TA PO (14:52)
[2018-07-24] MEDS ORDERED: DIAZ5TAB3 PO (14:52)
[2018-07-24] MEDS ORDERED: SPIR25TA PO (14:52)
[2018-07-24] MEDS ORDERED: METO100T12 PO (14:52)
[2018-07-24] MEDS ORDERED: METO2.5T PO (14:52)
[2018-07-24] MEDS ORDERED: APIX2.5T PO (14:52)
[2018-07-24 14:59] LABS: BASOPHILS # (AUTO) 0.1 10^3/uL (0.0-0.1); BASOPHILS % (AUTO) 1 % (0-10); EOSINOPHILS # (AUTO) 0.5 10^3/uL (0.0-0.3); EOSINOPHILS % (AUTO) 4 % (0-10); HEMATOCRIT 54 % (40-54); HEMOGLOBIN 17.5 G/DL (13.3-17.7); LYMPHOCYTES # (AUTO) 2.2 X 10^3 (1.0-4.0); LYMPHOCYTES % (AUTO) 21 % (12-44); MEAN CORPUSCULAR HEMOGLOBIN 34 PG (25-34); MEAN CORPUSCULAR HGB CONC 32 G/DL (32-36); MEAN CORPUSCULAR VOLUME 105 FL (80-99); MONOCYTES # (AUTO) 1.6 X 10^3 (0.0-1.0); MONOCYTES % (AUTO) 15 % (0-12); NEUTROPHILS # (AUTO) 6.1 X 10^3 (1.8-7.8); NEUTROPHILS % (AUTO) 58 % (42-75); PLATELET COUNT 214 10^3/uL (130-400); RED CELL DISTRIBUTION WIDTH 15.8 % (10.0-14.5); WHITE BLOOD COUNT 10.4 10^3/uL (4.3-11.0)
--- NOTE | 2018-07-24 15:03 | ED General ---
General Chief Complaint: Respiratory Problems Stated Complaint: WEAKNESS Nursing Triage Note: PT WITH HX OF HEART FAILURE PRESENTS WITH WEAKNESS, SOB, AND HARD TO GET AROUND FOR THE PAST MONTH ACCORDING TO HIS AT BEDSIDE. EDEMA IN LOWER EXTREMITIES. Nursing Sepsis Screen: No Definite Risk Source of Information: Patient Exam Limitations: No Limitations History of Present Illness Date Seen by Provider: July 24, 2018 Time Seen by Provider: 14:16 Initial Comments Here with report of weakness and shortness of breath especially with activity. State that it's been getting worse over the last month. He has had some adjustments of his meds but there is concerns about renal failure. He does have swelling in both lower extremities. He did require assist to transfer from car to wheelchair and wheelchair to bed. He is oxygen dependent now and has been using his oxygen. Does have history of heart failure and has had problems recently with fluid retention. His medications have recently been adjusted. Does have some chest tightness when he is exerting that he relates to shortness of breath. Denies chest pain otherwise. Denies nausea, vomiting or sweating. Timing/Duration: Getting Worse, Other (one month) Severity: Moderate Modifying Factors: worse with Movement; improves with Rest Associated Systoms: No Cough, No Diaphoresis, No Fever/Chills, No Loss of Appetite, No Nausea/Vomiting; Shortness of Air, Weakness Allergies and Home Medications Allergies Coded Allergies: carvedilol (Verified Allergy, Intermediate, 12/12/17) warfarin (Verified Allergy, Mild, ULCERS, 12/12/17) Home Medications Apixaban 2.5 Mg Tablet, 2.5 MG PO BID, (Reported) Diazepam 5 Mg Tablet, 5 MG PO BID, (Reported) Furosemide 40 Mg Tablet, 40 MG PO DAILY, (Reported) Levothyroxine Sodium 175 Mcg Tablet, 175 MCG PO DAILY, (Reported) Lisinopril 40 Mg Tablet, 40 MG PO DAILY, (Reported) Magnesium Oxide 400 Mg Tablet, 400 MG PO BID, (Reported) Metolazone 2.5 Mg Tablet, 2.5 MG PO DAILY, (Reported) Metoprolol Tartrate 100 Mg Tablet, 100 MG PO BID, (Reported) Multivitamin 1 Each Tablet, 1 EACH PO DAILY, (Reported) Potassium Chloride 10 Meq Tab.er.prt, 10 MEQ PO DAILY, (Reported) Pregabalin 200 Mg Capsule, 200 MG PO TID, (Reported) Saw/Vit E/Sod Era/Lyc/Beta/Pyg 1 Each Tablet, 1 EACH PO DAILY, (Reported) Spironolactone 50 Mg Tablet, 50 MG PO DAILY, (Reported) Patient Home Medication List Home Medication List Reviewed: Yes Review of Systems Review of Systems Constitutional: see HPI; No chills, No fever Respiratory: cough, dyspnea on exertion, short of breath; No wheezing Cardiovascular: No chest pain; edema; No syncope Gastrointestinal: No abdominal pain, No nausea, No vomiting Genitourinary: no symptoms reported Musculoskeletal: No back pain; joint pain, muscle pain, muscle weakness Skin: change in color; No lesions Psychiatric/Neurological: Denies Paresthesia; Weakness Hematologic/Lymphatic: No Symptoms Reported All Other Systems Reviewed Negative Unless Noted: Yes Past Ptgkbwk-Zcojah-Sclsty Hx Past Med/Social Hx: Reviewed Nursing Past Med/Soc Hx Patient Social History Alcohol Use: Denies Use Recreational Drug Use: No Smoking Status: Never a Smoker 2nd Hand Smoke Exposure: No Recent Foreign Travel: No Contact w/Someone Who Travel: No Recent Infectious Disease Expo: No Recent Hopitalizations: No Immunizations Up To Date Tetanus Booster (TDap): Unknown Date of Pneumonia Vaccine: Dec 12, 2016 Date of Influenza Vaccine: Dec 04, 2017 Seasonal Allergies Seasonal Allergies: No Past Medical History Surgeries: Yes (crush injury to right arm with fasciotomy, left shoulder FX, COLONOSCOPY) Respiratory: Yes (dyspnea) Asthma, Chronic Bronchitis, Sleep Apnea Currently Using CPAP: No Currently Using BIPAP: No Cardiac: Yes (VERY POOR HISTORIAN-) Irregular Heartbeat Neurological: No Reproductive Disorders: No Sexually Transmitted Disease: No HIV/AIDS: No Genitourinary: Yes Benign Prostatic Hyperpl Gastrointestinal: No Musculoskeletal: Yes Arthritis, Fibromyalgia Endocrine: Yes Hypothyroidsim HEENT: Yes (READING GLASSES) Loss of Vision: Bilateral Hearing Impairment: Hard of Hearing Cancer: No Psychosocial: No Integumentary: Yes (flushed coloring) Blood Disorders: No Adverse Reaction/Blood Tranf: No (N/A) Family Medical History Reviewed Nursing Family Hx Congestive heart failure 03 FATHER (87 ) Family history: Diabetes mellitus 03 MOTHER (55 ) Family history: Hypertension 03 MOTHER (50 ) Hypercholesterolemia 03 MOTHER (55 ) Myocardial infarction 03 FATHER, Onset:87 Physical Exam Vital Signs Vital Signs - First Documented 07/24/18 07/24/18 14:22 14:29 Temp 95.6 Pulse 60 Resp 17 B/P (MAP) 119/83 (95) Pulse Ox 94 O2 Delivery Nasal Cannula O2 Flow Rate 4.00 Capillary Refill : Greater Than 3 Seconds Height, Weight, BMI Height: 6'1.00" Weight: 340lbs. 2.0oz. [id number]; 39.6 BMI Method:Stated General Appearance: No Apparent Distress, WD/WN, Obese HEENT: PERRL/EOMI, Pharynx Normal Neck: Non Tender, Supple Respiratory: Lungs Clear, Normal Breath Sounds Cardiovascular: Regular Rate, Rhythm, No Edema, No Murmur Gastrointestinal: Non Tender, Soft Back: Normal Inspection, No CVA Tenderness, No Vertebral Tenderness Extremity: Normal Range of Motion, Non Tender, Pedal Edema (2+ up to knees bilateral) Neurologic/Psychiatric: Alert, Oriented x3 Skin: Warm/Dry, Ecchymosis Focused Exam Lactate Level 07/24/18 15:47: Lactic Acid Level 1.07 Lactic Acid Level Laboratory Tests Test 07/24/18 15:47 Lactic Acid Level 1.07 MMOL/L (0.50-2.00) Progress/Results/Core Measures Suspected Sepsis Recent Fever Within 48 Hours: No Infection Criteria Present: None New/Unexplained Altered Menta: No Sepsis Screen: No Definite Risk SIRS Temperature:95.6 Pulse: 60 Respiratory Rate: 17 Laboratory Tests 07/24/18 14:26: White Blood Count 10.4 Blood Pressure 119 /83 Mean: 95 07/24/18 15:47: Lactic Acid Level 1.07 Laboratory Tests 07/24/18 14:26: Creatinine 1.97H, Platelet Count 214, Total Bilirubin 0.5 Results/Orders Lab Results Laboratory Tests Test 07/24/18 14:26 07/24/18 14:55 07/24/18 15:47 07/24/18 16:30 Range/Units White Blood Count 10.4 4.3-11.0 10^3/uL Red Blood Count 5.17 4.35-5.85 10^6/uL Hemoglobin 17.5 13.3-17.7 G/DL Hematocrit 54 40-54 % Mean Corpuscular Volume 105 H 80-99 FL Mean Corpuscular Hemoglobin 34 25-34 PG Mean Corpuscular Hemoglobin Concent 32 32-36 G/DL Red Cell Distribution Width 15.8 H 10.0-14.5 % Platelet Count 214 130-400 10^3/uL Mean Platelet Volume 13.0 H 7.4-10.4 FL Neutrophils (%) (Auto) 58 42-75 % Lymphocytes (%) (Auto) 21 12-44 % Monocytes (%) (Auto) 15 H 0-12 % Eosinophils (%) (Auto) 4 0-10 % Basophils (%) (Auto) 1 0-10 % Neutrophils # (Auto) 6.1 1.8-7.8 X 10^3 Lymphocytes # (Auto) 2.2 1.0-4.0 X 10^3 Monocytes # (Auto) 1.6 H 0.0-1.0 X 10^3 Eosinophils # (Auto) 0.5 H 0.0-0.3 10^3/uL Basophils # (Auto) 0.1 0.0-0.1 10^3/uL Erythrocyte Sedimentation Rate 2 0-30 MM/HR Sodium Level 137 135-145 MMOL/L Potassium Level 5.3 H 3.6-5.0 MMOL/L Chloride Level 90 L 98-107 MMOL/L Carbon Dioxide Level 39 H 21-32 MMOL/L Anion Gap 8 5-14 MMOL/L Blood Urea Nitrogen 73 H 7-18 MG/DL Creatinine 1.97 H 0.60-1.30 MG/DL Estimat Glomerular Filtration Rate 34 BUN/Creatinine Ratio 37 Glucose Level 129 H 70-105 MG/DL Calcium Level 10.6 H 8.5-10.1 MG/DL Corrected Calcium 10.6 H 8.5-10.1 MG/DL Magnesium Level 2.4 1.8-2.4 MG/DL Total Bilirubin 0.5 0.1-1.0 MG/DL Aspartate Amino Transf (AST/SGOT) 27 5-34 U/L Alanine Aminotransferase (ALT/SGPT) 19 0-55 U/L Alkaline Phosphatase 96 40-136 U/L Troponin I 0.933 *H <0.028 NG/ML C-Reactive Protein High Sensitivity 3.69 H 0.00-0.50 MG/DL B-Type Natriuretic Peptide 298.6 H <100.0 PG/ML Total Protein 8.7 H 6.4-8.2 GM/DL Albumin 4.0 3.2-4.5 GM/DL Thyroid Stimulating Hormone (TSH) 3.79 0.35-4.94 UIU/ML Urine Color YELLOW Urine Clarity SLIGHTLY CLOUDY Urine pH 6 5-9 Urine Specific [place] 1.010 L 1.016-1.022 Urine Protein 2+ H NEGATIVE Urine Glucose (UA) NEGATIVE NEGATIVE Urine Ketones NEGATIVE NEGATIVE Urine Nitrite NEGATIVE NEGATIVE Urine Bilirubin NEGATIVE NEGATIVE Urine Urobilinogen NORMAL NORMAL MG/DL Urine Leukocyte Esterase 3+ H NEGATIVE Urine RBC (Auto) 5+ H NEGATIVE Urine RBC 2-5 H /HPF Urine WBC >100 H /HPF Urine Crystals NONE /LPF Urine Bacteria FEW H /HPF Urine Casts NONE /LPF Urine Mucus NEGATIVE /LPF Urine Culture Indicated YES Lactic Acid Level 1.07 0.50-2.00 MMOL/L Blood Gas Puncture Site RT RADIAL Blood Gas Patient Temperature 96.5 Arterial Blood pH 7.44 H 7.37-7.43 Arterial Blood Partial Pressure CO2 56 H 35-45 MMHG Arterial Blood Partial Pressure O2 72 L 79-93 MMHG Arterial Blood HCO3 38 H 23-27 MMOL/L Arterial Blood Total CO2 39.9 H 21.0-31.0 MMOL/L Arterial Blood Oxygen Saturation 95 94-100 % Arterial Blood Base Excess 13.0 H -2.5-2.5 MMOL/L J Carlos Test YES-POS Blood Gas Ventilator Setting NO Blood Gas Inspired Oxygen ROOM AIR My Orders Orders - BEN PETIT MD Chest 1 View, Ap/Pa Only (07/24/18 14:46) Ekg Tracing (07/24/18 14:46) O2 (07/24/18 14:46) Monitor-Rhythm Ecg Trace Only (07/24/18 14:46) BNP (07/24/18 14:46) Cbc With Automated Diff (07/24/18 14:46) Comprehensive Metabolic Panel (07/24/18 14:46) Hs C Reactive Protein (07/24/18 14:46) Erythrocyte Sedimentation Rate (07/24/18 14:46) Magnesium (07/24/18 14:46) Thyroid Stimulating Hormone (07/24/18 14:46) Troponin I (07/24/18 14:46) Ua Culture If Indicated (07/24/18 14:46) Ed Iv/Invasive Line Start (07/24/18 14:46) Urine Culture (07/24/18 14:55) Lactic Acid Analyzer (5/28/19 15:46) Blood Culture (07/24/18 15:46) Furosemide Injection (Lasix Injection) (07/24/18 15:54) Ceftriaxone For Iv Use (Rocephin For I (07/24/18 16:15) Arterial Blood Gas (07/24/18 16:09) Albuterol/Ipra Inhalation Soln (Duoneb I (07/24/18 16:30) Svn Small Volume Nebulizer (07/24/18 16:19) Vital Signs/I&O 07/24/18 07/24/18 07/24/18 14:22 14:29 16:42 Temp 95.6 Pulse 60 Resp 17 B/P (MAP) 119/83 (95) Pulse Ox 94 96 99 O2 Delivery Nasal Cannula Nasal Cannula Nasal Cannula O2 Flow Rate 4.00 4.00 5.00 Capillary Refill : Greater Than 3 Seconds Blood Pressure Mean: 95 Progress Note : Progress Note Seen and evaluated. IV, labs, EKG and chest x-ray ordered. O2 applied. Monitor patient. 1551: Patient has findings of heart failure as well as elevated troponin and urinary tract infection. I discussed the case with Dr. Lozano. He will see the patient in consult and recommends Lasix 80 mg IV. I did discuss the case with Dr. Akins at 1603 and she accepts patient for admission, inpatient status. Rocephin 1 g IV for the urinary tract infection. 1613: I did discuss the case with Dr. Dumont and he will see the patient in consult. We will go ahead and get ABG to determine hypercarbia and I will give him a DuoNeb treatment now. I did discuss with Dr. Dumont patient's concerns about having sleep apnea but not been prescribed CPAP at night. Admit, inpatient status. Patient family agree with plan. ECG Initial ECG Impression Date: July 24, 2018 Initial ECG Impression Time: 14:21 Initial ECG Rate: 62 Initial ECG Rhythm: Normal Sinus Comment Sinus rhythm with first-degree AV block and nonspecific intraventricular conduction delay with left axis deviation. Left ventricular hypertrophy noted. Similar but worsened from previous of 06/14/20. No evidence of ST elevation NC. Interpreted by me. Diagnostic Imaging Diagonstic Imaging: Xray Plain Films/CT/US/NM/MRI: chest Comments NAME: OLINDA NICHOLS [facility] REC#: [id number] PT STATUS: REG ER : 1950 PHYSICIAN: BEN PETIT MD ADMIT DATE: 07/24/18/ER Draft Date of Exam:07/24/18 CHEST 1 VIEW, AP/PA ONLY INDICATION: Weakness and shortness of air. TIME OF EXAM: 2:59 p.m. Correlation is made with prior study from 06/14/2013. FINDINGS: Heart appears enlarged. There is no infiltrate or failure. No effusion or pneumothorax is seen. IMPRESSION: No acute cardiopulmonary process is detected. Dictated on workstation # [id number] Dict: 07/24/18 1507 Trans: 07/24/18 1514 KB [id number] Interpreted by: ELADIA CLINTON MD Electronically signed by: Departure Communication (Admissions) Time/Spoke to Admitting Phy: 16:03 Time/Spoke to Consulting Phy: 15:51 Impression Primary Impression: Acute heart failure Qualified Codes: I50.9 - Heart failure, unspecified Additional Impressions: Elevated troponin Urinary tract infection Qualified Codes: N30.00 - Acute cystitis without hematuria Disposition: ADMITTED INPATIENT Condition: Stable Admissions Decision to Admit Reason: Admit from ER (General) Decision to Admit/Date: July 24, 2018 Time/Decision to Admit Time: 15:51 Departure-Patient Inst. Referrals: RAHEEM WATKINS MD (PCP/Family) Primary Care Physician BEN PETIT MD July 24, 2018 15:03
[2018-07-24 15:11] LABS: BILIRUBIN,TOTAL 0.5 MG/DL (0.1-1.0); CALCIUM 10.6 MG/DL (8.5-10.1); CREATININE SERUM 1.97 MG/DL (0.60-1.30); MAGNESIUM 2.4 MG/DL (1.8-2.4); POTASSIUM 5.3 MMOL/L (3.6-5.0); TOTAL PROTEIN 8.7 GM/DL (6.4-8.2)
[2018-07-24 15:13] LABS: BILIRUBIN,URINE NEGATIVE (NEGATIVE); CLARITY,URINE SLIGHTLY CLOUDY; COLOR,URINE YELLOW; GLUCOSE, URINE (UA) NEGATIVE (NEGATIVE); KETONES,URINE NEGATIVE (NEGATIVE); LEUKOCYTE ESTERASE ,URINE 3+ (NEGATIVE); NITRITE,URINE NEGATIVE (NEGATIVE); PH,URINE 6 (5-9); PROTEIN,URINE 2+ (NEGATIVE); UROBILINOGEN,URINE NORMAL (NORMAL)
--- NOTE | 2018-07-24 15:14 | Diagnostic Imaging Report ---
INDICATION: Weakness and shortness of air. TIME OF EXAM: 2:59 p.m. Correlation is made with prior study from 06/14/2013. FINDINGS: Heart appears enlarged. There is no infiltrate or failure. No effusion or pneumothorax is seen. IMPRESSION: No acute cardiopulmonary process is detected. Dictated by: Dictated on workstation # [id number]
[2018-07-24 15:20] LABS: ERYTHROCYTE SEDIMENTATION RATE 2 MM/HR (0-30)
[2018-07-24 15:25] LABS: BACTERIA,URINE FEW /HPF; WBC,URINE >100 /HPF
[2018-07-24] MEDS ORDERED: FUROSEMIDE 40 MG/4 ML INJ (LASIX) IV STA (15:54)
--- NOTE | 2018-07-24 16:11 | Consultation-Cardiology ---
HPI-Cardiology Cardiology Consultation: Date of Consultation 07/24/18 Time Seen by a Provider: 16:20 Date of Admission 07-24-18 Attending Physician Admitting Physician Pool Tristan MD Consulting Physician KENDRA THAYER HPI: Chief Complaint: Dyspnea Mr. Nichols is a 68 year old male whom I have seen in the ED. He is a ccompanied by his . He reports he was having increasing bilat LE swelling for which his diuretic regimen had recently been increased. However, he reports he was having increasing gen weakness and fatigue which he felt was d/t a reaction to his diuretic regimen. Therefore, he stopped his diuretics and was feeling somewhat better for a few days. He then began to have increasing bilat LE swelling. He restarted his diuretics which was helping his swelling somewhat, but he continued to feel progressively weak. He states he was incontinent of urine last noc. He reports chronic exertional dyspnea which he feels has been somewhat worse the last month with frequent non-productive cough. He denies any c/o CP, palpitations, syncope or near syncope. Review of Systems-Cardiology Review of Systems Constitutional: No chills, No fever; malaise Eyes: No vision change Ears/Nose/Throat: No epistaxis, No nasal drainage, No recent hearing loss, No ulcerations Respiratory: As described under HPI Cardiovascular: As described under HPI Gastrointestinal: No constipation, No diarrhea, No nausea, No vomiting Genitourinary: incontinence Musculoskeletal: joint pain (chronic) Skin: No rash, No ulcerations Psychiatric/Neurological: No seizure, No focal weakness, No syncope Hematologic: No bleeding abnormalities All Other Systems Reviewed Negative Unless Noted: Yes TOM-[id number]-Jaylfp Hx Patient Social History Alcohol Use: Denies Use Recreational Drug Use: No Smoking Status: Never a Smoker 2nd Hand Smoke Exposure: No Recent Foreign Travel: No Recent Infectious Disease Expo: No Immunizations Up To Date Tetanus Booster (TDap): Unknown Date of Pneumonia Vaccine: Dec 12, 2016 Date of Influenza Vaccine: Dec 04, 2017 Past Medical History PMH As described under Assessment. Family Medical History Family Medical History: Family h/o father having CAD with IA in his 80's as well as CHF. Mother had a ho HTN and HLD. Family History: Congestive heart failure 03 FATHER (87 ) Family history: Diabetes mellitus 03 MOTHER (55 ) Family history: Hypertension 03 MOTHER (50 ) Hypercholesterolemia 03 MOTHER (55 ) Myocardial infarction 03 FATHER, Onset:87 Allergies and Home Medications Allergies Coded Allergies: carvedilol (Verified Allergy, Intermediate, Takes Metoprolol at home, 07/24/18) warfarin (Verified Allergy, Mild, ULCERS, 12/12/17) Home Medications Apixaban 2.5 Mg Tablet, 2.5 MG PO BID, (Reported) Diazepam 5 Mg Tablet, 5 MG PO BID, (Reported) Furosemide 40 Mg Tablet, 40 MG PO DAILY, (Reported) Levothyroxine Sodium 175 Mcg Tablet, 175 MCG PO DAILY, (Reported) Lisinopril 40 Mg Tablet, 40 MG PO DAILY, (Reported) Magnesium Oxide 400 Mg Tablet, 400 MG PO BID, (Reported) Metolazone 2.5 Mg Tablet, 2.5 MG PO DAILY, (Reported) Metoprolol Tartrate 100 Mg Tablet, 100 MG PO BID, (Reported) Multivitamin 1 Each Tablet, 1 EACH PO DAILY, (Reported) Potassium Chloride 10 Meq Tab.er.prt, 10 MEQ PO DAILY, (Reported) Pregabalin 200 Mg Capsule, 200 MG PO TID, (Reported) Saw/Vit E/Sod Era/Lyc/Beta/Pyg 1 Each Tablet, 1 EACH PO DAILY, (Reported) Spironolactone 50 Mg Tablet, 50 MG PO DAILY, (Reported) Physical Exam-Cardiology Physical Exam Vital Signs/I&O 07/24/18 07/24/18 07/25/18 07/25/18 21:45 21:47 00:00 00:00 Pulse 60 56 Resp 17 13 B/P (MAP) 142/65 (90) 116/70 (85) Pulse Ox 95 95 96 91 O2 Delivery Nasal Cannula Nasal Cannula Nasal Cannula Nasal Cannula O2 Flow Rate 5.00 5.00 5.00 5.00 07/25/18 07/25/18 07/25/18 07/25/18 01:00 02:35 04:00 04:00 Temp 97.2 Pulse 63 58 Resp 18 B/P (MAP) 124/73 (90) Pulse Ox 92 93 96 O2 Delivery Nasal Cannula Nasal Cannula Nasal Cannula O2 Flow Rate 5.00 5.00 5.00 07/25/18 07/25/18 07/25/18 06:41 07:00 08:00 Pulse 60 58 B/P (MAP) 122/61 (81) Pulse Ox 92 95 O2 Delivery Nasal Cannula Nasal Cannula O2 Flow Rate 5.00 5.00 07/25/18 00:00 Intake Total 1240 ml Balance 1240 ml Capillary Refill : Greater Than 3 Seconds Constitutional: AAO x 3, well-developed, well-nourished HEENT: PERRL, hearing is well preserved, oral hygience is good Neck: No carotid bruit; carotid pulses are 2 + bilaterally Respiratory: No accessory muscle use, No respiratory distress; chest expansion is symmetric, chest is bilaterally symmetric, lungs clear to auscultation Cardiovascular: regular rate-rhythm; No JVD; S1 and S2, systolic murmur Gastrointestinal: No tender; soft, round, audible bowel sounds Rectal: deferred Extremities: swelling (2 (+) bilat LE swelling) Neurologic/Psychiatric: alert, grossly intact, power is 5/5 both on sides Skin: No rash, No ulcerations; other (excoriations to legs and arms) Data Review Labs Laboratory Tests 07/24/18 14:26: White Blood Count 10.4, Red Blood Count 5.17, Hemoglobin 17.5, Hematocrit 54, Mean Corpuscular Volume 105H, Mean Corpuscular Hemoglobin 34, Mean Corpuscular Hemoglobin Concent 32, Red Cell Distribution Width 15.8H, Platelet Count 214, Mean Platelet Volume 13.0H, Neutrophils (%) (Auto) 58, Lymphocytes (%) (Auto) 21, Monocytes (%) (Auto) 15H, Eosinophils (%) (Auto) 4, Basophils (%) (Auto) 1, Neutrophils # (Auto) 6.1, Lymphocytes # (Auto) 2.2, Monocytes # (Auto) 1.6H, Eosinophils # (Auto) 0.5H, Basophils # (Auto) 0.1, Erythrocyte Sedimentation Rate 2, Sodium Level 137, Potassium Level 5.3H, Chloride Level 90L, Carbon Dioxide Level 39H, Anion Gap 8, Blood Urea Nitrogen 73H, Creatinine 1.97H, Estimat Glomerular Filtration Rate 34, BUN/Creatinine Ratio 37, Glucose Level 129H, Calcium Level 10.6H, Corrected Calcium 10.6H, Magnesium Level 2.4, Total Bilirubin 0.5, Aspartate Amino Transf (AST/SGOT) 27, Alanine Aminotransferase (ALT/SGPT) 19, Alkaline Phosphatase 96, Troponin I 0.933*H, C-Reactive Protein High Sensitivity 3.69H, B-Type Natriuretic Peptide 298.6H, Total Protein 8.7H, Albumin 4.0, Thyroid Stimulating Hormone (TSH) 3.79 07/24/18 14:55: Urine Color YELLOW, Urine Clarity SLIGHTLY CLOUDY, Urine pH 6, Urine Specific [place] 1.010L, Urine Protein 2+H, Urine Glucose (UA) NEGATIVE, Urine Ketones NEGATIVE, Urine Nitrite NEGATIVE, Urine Bilirubin NEGATIVE, Urine Urobilinogen N ORMAL, Urine Leukocyte Esterase 3+H, Urine RBC (Auto) 5+H, Urine RBC 2-5H, Urine WBC >100H, Urine Crystals NONE, Urine Bacteria FEWH, Urine Casts NONE, Urine Mucus NEGATIVE, Urine Culture Indicated YES 07/24/18 15:47: Lactic Acid Level 1.07 07/24/18 16:30: Blood Gas Puncture Site RT RADIAL, Blood Gas Patient Temperature 96.5, Arterial Blood pH 7.44H, Arterial Blood Partial Pressure CO2 56H, Arterial Blood Partial Pressure O2 72L, Arterial Blood HCO3 38H, Arterial Blood Total CO2 39.9H, Arterial Blood Oxygen Saturation 95, Arterial Blood Base Excess 13.0H, J Carlos Test YES-POS, Blood Gas Ventilator Setting NO, Blood Gas Inspired Oxygen ROOM AIR 07/25/18 03:45: White Blood Count 10.7, Red Blood Count 4.85, Hemoglobin 16.4, Hematocrit 51, Mean Corpuscular Volume 105H, Mean Corpuscular Hemoglobin 34, Mean Corpuscular Hemoglobin Concent 32, Red Cell Distribution Width 15.8H, Platelet Count 204, Mean Platelet Volume 12.6H, Neutrophils (%) (Auto) 61, Lymphocytes (%) (Auto) 23, Monocytes (%) (Auto) 12, Eosinophils (%) (Auto) 4, Basophils (%) (Auto) 1, Neutrophils # (Auto) 6.5, Lymphocytes # (Auto) 2.4, Monocytes # (Auto) 1.3H, Eosinophils # (Auto) 0.4H, Basophils # (Auto) 0.1, Sodium Level 139, Potassium Level 5.2H, Chloride Level 93L, Carbon Dioxide Level 33H, Anion Gap 13, Blood Urea Nitrogen 73H, Creatinine 1.69H, Estimat Glomerular Filtration Rate 41, BUN/Creatinine Ratio 43, Glucose Level 118H, Calcium Level 10.0, Corrected Calcium 10.4H, Phosphorus Level 6.5H, Magnesium Level 2.3, Total Bilirubin 0.5, Aspartate Amino Transf (AST/SGOT) 24, Alanine Aminotransferase (ALT/SGPT) 18, Alkaline Phosphatase 82, Total Protein 7.7, Albumin 3.5, Thyroid Stimulating Hormone (TSH) 3.05 Radiology NAME: OLINDA NICHOLS [facility] REC#: [id number] PT STATUS: REG ER : 1950 PHYSICIAN: BEN PETIT MD ADMIT DATE: 07/24/18/ER Draft Date of Exam:07/24/18 CHEST 1 VIEW, AP/PA ONLY INDICATION: Weakness and shortness of air. TIME OF EXAM: 2:59 p.m. Correlation is made with prior study from 06/14/2013. FINDINGS: Heart appears enlarged. There is no infiltrate or failure. No effusion or pneumothorax is seen. IMPRESSION: No acute cardiopulmonary process is detected. 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 Last echo of 07/05/18 shows mod conc LVH and LVEF 30-35%; grade 1 alicea dysfunction; mod to sev LA dilatation, mod MAC, AoV sclerosis w/o stenosis; PASP was 60 mmHg Nocturnal and exercise-related hypoxemia, managed by Dr Patrick and Dr Tristan No significant CAD on cath of April [address] Beltran A flutter treated with elec CV in [place] [address] Beltran. Continuing episodes of A Flutter with a controlled vent response on ILR recordings that was implanted on 07/25/17 Refuses warfarin or Xarelto. Currently taking Eliquis Obesity with BMI approx 45 H/o alcohol abuse, states quit in June 2018 H/o hypothyroidism, treated with thyroid replacement therapy. Diagnosed with iatrogenic hyperthyroidism. Thyroid is being managed by his fam phy Discussion and Recomendations Acute on chronic respiratory failure Elevated troponin likely d/t chronic hypoxemia Acute on chronic renal failure likely d/t aggressive diuresis - tx with IVF Continue Eliquis 2.5 mg BID d/t acute renal failure Hold nephrotoxic agents D/t hyperkalemia hold PRINCESS(-) and aldactone Continue BB tx Monitor lab closely Further recs will be based on his hospital course We would like to thank medical services for this consult KENDRA MARIE July 24, 2018 16:11
[2018-07-24] MEDS ORDERED: cefTRIAXone FOR IV USE 1,000 MG in WATER (STERILE) FOR INJECTION 10 ML IV ONE (16:15)
[2018-07-24] MEDS ORDERED: RT-ALBUTEROL/IPRATROPIUM 3 ML (DUONEB) VIAL INH ONE (16:30)
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
--- OUTSIDE RECORDS SUMMARY | 2018-07-24 16:52 | XMS REPORT | Continuity of Care Document ---
Author Organization Unknown Address Unknown Allergies Active Description Code Type Severity Reaction Onset Reported/Identified Relationship to Patient Clinical Status Yes Coreg Drug Allergy N/A N/A 06/03/2013 Yes CRILL OIL CRILL OIL Mild N/A 06/14/2013 Yes carvedilol [id number] Drug Allergy Moderate N/A 12/12/2017 Yes warfarin [id number] Drug Allergy Mild ULCERS 12/12/2017 Medications There [...] K 786.09 RESPIRATORY ABNORMALITY OTHER 05/08/2013 SABRINA QUALITY CONTROL INSPECTOR, IMANI R 244.9 UNSPECIFIED ACQUIRED HYPOTHYROIDISM 05/08/2013 SABRINA QUALITY CONTROL INSPECTOR, IMANI R 401.1 BENIGN ESSENTIAL HYPERTENSION 05/08/2013 SABRINA PORTERN, IMANI R 782.3 EDEMA 05/08/2013 SABRINA QUALITY CONTROL INSPECTOR, IMANI R 786.09 RESPIRATORY ABNORMALITY OTHER 05/08/2013 [...] MD 786.09 RESPIRATORY ABNORMALITY OTHER 05/08/2013 AMADAOksana QUALITY CONTROL INSPECTOR, MARCK L 244.9 UNSPECIFIED ACQUIRED HYPOTHYROIDISM 05/08/2013 ROCCO QUALITY CONTROL INSPECTOR, MARCK L 401.1 BENIGN ESSENTIAL HYPERTENSION 05/08/2013 AMADAL QUALITY CONTROL INSPECTOR, MARCK L 782.3 EDEMA 05/08/2013 AMADAOksana QUALITY CONTROL INSPECTOR, MARCK L 786.09 RESPIRATORY ABNORMALITY OTHER 05/08/2013 [...] 794.31 NONSPECIFIC ABNORMAL ELECTROCARDIOGRAM (ECG) (EKG) 05/23/2013 JIA BA WANDA K 491.22 OBSTRUCTIVE CHRONIC BRONCHITIS [...] MD Ot 425.4 PRIM CARDIOMYOPATHY NEC 05/26/2013 RAHEEM WATKINS MD Ot 427.32 ATRIAL FLUTTER 05/26/2013 [...] DO, WANDA K 519.9 RESPIRATORY DISORDERS 06/03/2013 VREGARA DO, WANDA K 599.9 UROLOGIC DISORDERS 06/03/2013 VERGARA DO, WANDA K 790.93 PSA ELEVATED 06/03/2013 VERGARA DO, WANDA K V58.61 LONG-TERM (CURRENT) USE OF ANTICOAGULANTS 06/03/2013 SABRINA QUALITY CONTROL INSPECTOR, IMANI R 519.9 RESPIRATORY DISORDERS 06/03/2013 SABRINA QUALITY CONTROL INSPECTOR, IMANI R 599.9 UROLOGIC DISORDERS 06/03/2013 SABRINA QUALITY CONTROL INSPECTOR, IMANI R 790.93 PSA ELEVATED 06/03/2013 SABRINA QUALITY CONTROL INSPECTOR, IMANI R V58.61 LONG-TERM (CURRENT) USE OF [...] MARCK L V04.81 FLU SHOT 12/05/2013 JUNE TANG, RAHEEM V04.81 FLU SHOT 04/08/2014 JUNE TANG, [...] OTHER PREPROCEDURAL EXAMIN 06/19/2018 HERON TANG FACC, ALI FACP CCDS Ot 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 06/19/2018 HERON TANG FACC, ALI FACP CCDS Ot 397.0 TRICUSPID VALVE DISEASE 06/19/2018 HERON TANG FACC, ALI FACP CCDS Ot 425.4 PRIM CARDIOMYOPATHY NEC 06/19/2018 HERON TANG FACC, ALI FACP CCDS Ot 427.32 ATRIAL FLUTTER 06/20/2018 SUE DICKERSON DO Ot Z01.818 ENCOUNTER FOR OTHER PREPROCEDURAL EXAMIN 06/21/2018 SUE DICKERSON DO Ot Z01.818 ENCOUNTER FOR OTHER PREPROCEDURAL EXAMIN 06/26/2018 HERON TANG FACC, ALI FACP CCDS Ot 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 06/26/2018 HERON TANG FACC, ALI FACP CCDS Ot 397.0 TRICUSPID VALVE DISEASE 06/26/2018 HERON TANG FACC, ALI FACP CCDS Ot 425.4 PRIM CARDIOMYOPATHY NEC 06/26/2018 HERON TANG FACC, ALI FACP CCDS Ot 427.32 ATRIAL FLUTTER 06/26/2018 SUE DICKERSON DO Ot E66.01 MORBID (SEVERE) OBESITY DUE TO EXCESS CA 06/26/2018 SUE DICKERSON DO Ot G47.33 OBSTRUCTIVE SLEEP APNEA (ADULT) (PEDIATR 06/26/2018 SUE DICKERSON DO Ot I11.0 HYPERTENSIVE HEART DISEASE WITH HEART FA 06/26/2018 SUE DICKERSON DO Ot I42.0 DILATED CARDIOMYOPATHY 06/26/2018 SUE DICKERSON DO Ot I48.92 UNSPECIFIED ATRIAL FLUTTER 06/26/2018 SUE DICKERSON DO Ot I50.22 CHRONIC SYSTOLIC (CONGESTIVE) HEART FAIL 06/26/2018 SUE DICKERSON DO Ot J45.909 UNSPECIFIED ASTHMA, UNCOMPLICATED 06/26/2018 SUE DICKERSON DO Ot K44.9 DIAPHRAGMATIC HERNIA WITHOUT OBSTRUCTION 06/26/2018 SUE DICKERSON DO Ot K57.30 DVRTCLOS OF LG INT W/O PERFORATION OR AB 06/26/2018 SUE DICKERSON DO Ot K63.5 POLYP OF COLON 06/26/2018 SUE DICKERSON DO Ot Z68.39 BODY MASS INDEX (BMI) 39.0-39.9, ADULT 06/26/2018 SUE DICKERSON DO Ot Z79.01 CHEMICAL DEPENDENCY NURSE (CURRENT) USE OF ANTICOAGULANT 06/26/2018 SUE DICKERSON DO Ot Z79.899 OTHER CHEMICAL DEPENDENCY NURSE (CURRENT) DRUG THERAPY 06/28/2018 SUE DICKERSON DO Ot E66.01 MORBID (SEVERE) OBESITY DUE TO EXCESS CA 06/28/2018 SUE DICKERSON DO Ot G47.33 OBSTRUCTIVE SLEEP APNEA (ADULT) (PEDIATR 06/28/2018 SUE DICKERSON DO Ot I11.0 HYPERTENSIVE HEART DISEASE WITH HEART FA 06/28/2018 SUE DICKERSON DO Ot I42.0 DILATED CARDIOMYOPATHY 06/28/2018 SUE DICKERSON DO Ot I48.92 UNSPECIFIED ATRIAL FLUTTER 06/28/2018 SUE DICKERSON DO Ot I50.22 CHRONIC SYSTOLIC (CONGESTIVE) HEART FAIL 06/28/2018 SUE DICKERSON DO Ot J45.909 UNSPECIFIED ASTHMA, UNCOMPLICATED 06/28/2018 SUE DICKERSON DO Ot K44.9 DIAPHRAGMATIC HERNIA WITHOUT OBSTRUCTION 06/28/2018 SUE DICKERSON DO Ot K57.30 DVRTCLOS OF LG INT W/O PERFORATION OR AB 06/28/2018 SUE DICKERSON DO Ot K63.5 POLYP OF COLON 06/28/2018 SUE DICKERSON DO Ot Z68.39 BODY MASS INDEX (BMI) 39.0-39.9, ADULT 06/28/2018 SUE DICKERSON DO Ot Z79.01 [facility] (CURRENT) USE OF ANTICOAGULANT 06/28/2018 SUE DICKERSON DO Ot Z79.899 OTHER [facility] (CURRENT) DRUG THERAPY 07/12/2018 HERON TANG FACC, ALI FACP CCDS Ot E03.9 HYPOTHYROIDISM, UNSPECIFIED 07/12/2018 HERON TANG FACC, MONCHO FACP CCDS Ot E66.9 OBESITY, UNSPECIFIED 07/12/2018 HERON TANG FACC, ALI FACP CCDS Ot I42.0 DILATED CARDIOMYOPATHY 07/12/2018 HERON TANG FACC, MONCHO FACP CCDS Ot I48.91 UNSPECIFIED ATRIAL FIBRILLATION 07/12/2018 HERON TANG FACC, MONCHO FACP CCDS Ot I48.92 UNSPECIFIED ATRIAL FLUTTER 07/12/2018 HERON TANG FACC, MONCHO FACP CCDS Ot I50.22 CHRONIC SYSTOLIC (CONGESTIVE) HEART FAIL 07/12/2018 HERON TANG FACC, [facility] FACP CCDS Ot Z68.36 BODY MASS INDEX (BMI) 36.0-36.9, ADULT Procedures Code Description [place] [address] ROUTINE VENIPUNCTURE 05/08/2013 01662 XRAY CHEST 2 VIEW 05/08/2013 41479 OXIMETRY 05/08/2013 8964959 GFR CALC (RESULT ONLY) 05/08/2013 00297 CMP 05/08/2013 43836 CBC 05/08/2013 66980 BNP 05/09/2013 29685 ROUTINE VENIPUNCTURE 05/15/2013 61195 HEMOCCULT 05/15/2013 26563 HEMOCCULT 05/15/2013 45363 BMP 05/15/2013 69674 CPK 05/15/2013 07328 BNP 05/15/2013 87705 OXIMETRY 05/15/2013 CARDIOLOG MONCHO SHELBY 05/15/2013 GENERAL S Sue Dickerson 05/15/2013 68501 ROUTINE VENIPUNCTURE 05/23/2013 71086 ROUTINE VENIPUNCTURE 05/23/2013 66286 EKG, TRACING 05/23/2013 44039 BMP 05/23/2013 58862 BNP 05/23/2013 57634 EKG, TRACING 05/23/2013 27499 OXIMETRY 05/23/2013 56491 OXIMETRY 05/23/2013 7225142 GFR CALC (RESULT ONLY) 05/23/2013 23568 BMP 05/23/2013 80497 BNP 05/23/2013 66961 ROUTINE VENIPUNCTURE 06/03/2013 78608 INR (IN HOUSE) 06/03/2013 89493 OXIMETRY 06/03/2013 95999 CBC 06/03/2013 0025205 GFR CALC (RESULT ONLY) 06/03/2013 76717 BMP 06/03/2013 25851 ROUTINE VENIPUNCTURE 06/12/2013 06853 INR (IN HOUSE) 06/12/2013 39707 CBC 06/12/2013 TICK TICKPANEL W/LYME 06/12/2013 50194 ROUTINE VENIPUNCTURE 06/28/20133407866 GFR CALC (RESULT ONLY) 06/28/2013 51062 CMP 06/28/2013 09276 TSH 06/28/2013 88653 OXIMETRY 07/03/2013 82864 OXIMETRY 07/17/2013 98410 ECHO 2D 08/13/2013 70855 OXIMETRY 11/13/2013 60794 UA W/ CULTURE IF INDICATED 11/13/2013 28419 CULTURE URINE 11/14/2013 11285 ROUTINE VENIPUNCTURE 12/05/2013 33978 UA LONG DIP 12/05/2013 31464 CBC 12/05/2013 30813 CMP 12/05/20133065306 GFR CALC (RESULT ONLY) 12/05/2013 09449 CRP 12/05/2013 38467 PSA TOTAL 12/05/2013 Results Test Result Range [facility] - 01/02/17 10:19 GLUCOSE 257 mg/dL 65-99 UREA NITROGEN (BUN) 18 mg/dL 7-25 CREATININE 0.83 mg/dL 0.70-1.25 eGFR NON-AFR. IRAQI 92 mL/min/1.73m2 > OR=60 eGFR 106 mL/min/1.73m2 [...] - 09/04/17 12:20 TSH 7.43 mIU/L 0.40-4.50 [facility] - 02/01/18 16:00 GLUCOSE 144 mg/dL 65-99 UREA NITROGEN (BUN) 24 mg/dL 7-25 CREATININE 1.06 mg/dL 0.70-1.25 eGFR NON-AFR. IRAQI 72 mL/min/1.73m2 > OR=60 eGFR 84 mL/min/1.73m2 [...] - 02/01/18 16:00 TSH 3.90 mIU/L 0.40-4.50 Whole blood basic metabolic panel - 07/19/18 16:00 Serum or plasma sodium measurement (moles/volume) 134 mmol/L 135-145 Serum or plasma potassium measurement (moles/volume) 4.8 mmol/L 3.6-5.0 Serum or plasma chloride measurement (moles/volume) 83 mmol/L 98-107 Carbon dioxide 39 mmol/L 21-32 Serum or plasma anion gap determination (moles/volume) 12 mmol/L 5-14 Serum or plasma urea nitrogen measurement (mass/volume) 66 mg/dL 7-18 Serum or plasma creatinine measurement (mass/volume) 2.82 mg/dL 0.60-1.30 Serum or plasma urea nitrogen/creatinine mass ratio 23 NRG Serum or plasma creatinine measurement with calculation of estimated glomerular filtration rate 22 NRG Serum or plasma glucose measurement (mass/volume) 160 mg/dL 70-105 Serum or plasma calcium measurement (mass/volume) 9.7 mg/dL 8.5-10.1 Magnesium - 07/19/18 16:00 Magnesium 1.7 mg/dL 1.8-2.4 Encounters ACCT No. Visit Date/Time Discharge Status Pt. Type Provider Facility Loc./Unit Complaint [id number] 04/08/2014 10:11:00 04/08/2014 23:59:59 CLS Outpatient RAHEEM WATKINS MD [id number] 12/05/2013 14:35:00 12/05/2013 23:59:59 CLS Outpatient RAHEEM WATKINS MD [id number] 11/13/2013 10:34:00 11/13/2013 23:59:59 CLS Outpatient IMANI BENNETT APRN [id number] 10/10/2013 00:00:00 10/10/2013 23:59:59 CLS Outpatient WANDA VERGARA DO [id number] 08/13/2013 00:00:00 08/13/2013 23:59:59 CLS Outpatient WANDA VERGARA DO [id number] 07/17/2013 09:20:00 07/17/2013 23:59:59 CLS Outpatient WANDA VERGARA DO [id number] 07/03/2013 07:32:00 07/03/2013 23:59:59 CLS Outpatient ALBA FARIAS MD [id number] 06/12/2013 17:33:00 06/12/2013 23:59:59 CLS Outpatient CASSIA CESAR APRN [id number] 06/03/2013 09:47:00 06/03/2013 23:59:59 CLS Outpatient WANDA VERGARA DO [id number] 05/23/2013 08:47:00 05/23/2013 23:59:59 CLS Outpatient JAI DOWANDA [id number] 05/23/2013 08:47:00 05/23/2013 23:59:59 CLS Outpatient MARCK VALIENTE APRN [id number] 05/15/2013 10:34:00 05/15/2013 23:59:59 CLS Outpatient VERGARA DOWANDA [id number] 05/08/2013 13:09:00 05/08/2013 23:59:59 CLS Outpatient WANDA VERGARA DO [id number] 05/08/2013 13:09:00 05/08/2013 23:59:59 CLS Outpatient VERGARA DO, WANDA K [id number] 06/22/2018 11:20:00 06/22/2018 23:59:59 CLS Outpatient JUNE TANG, RAHEEM [facility] [id number] 02/01/2018 15:20:00 Document Registration [id number] 09/04/2017 11:40:00 Document Registration [id number] 01/02/2017 09:20:00 Document Registration [id number] 07/19/2018 15:44:00 07/19/2018 23:59:59 CLS Outpatient KENDRA MARIE [facility] LAB FS I50.22 [id number] 06/26/2018 10:04:00 06/26/2018 13:40:00 DIS Outpatient SUE DICKERSON DO [facility] ENDO BLOOD IN STOOLS [id number] 06/20/2018 10:15:00 06/20/2018 12:35:00 DIS Outpatient SUE DICKERSON DO [facility] PREOP COLONOSCOPY/EGD [id number] 01/11/2018 14:34:00 01/11/2018 23:59:59 CLS Preadmit HERON TANG FACCMONCHO FACP CCDS [facility] CARD ATRIAL FLUTTER [id number] 12/12/2017 05:44:00 12/12/2017 14:33:00 DIS Outpatient SUE DICKERSON DO [facility] PREOP COLONOSCOPY/EGD [id number] 10/09/2017 21:00:00 10/09/2017 23:59:59 CLS Preadmit KEITH WILLINGHAM MD [facility] SLEEP OBSTRUCTIVE SLEEP APNEA [id number] 09/12/2017 20:03:00 09/13/2017 06:30:00 DIS Outpatient KEITH WILLINGHAM MD [facility] SLEEP OBSTRUCTIVE SLEEP APNEA [id number] 07/25/2017 09:30:00 07/25/2017 23:59:59 CLS Preadmit KENDRA MARIE [facility] CARD I48.0 ATRIAL FLUTTER [id number] 07/25/2017 08:58:00 07/25/2017 12:23:00 DIS Outpatient HERON TANG FACC, MONCHO DYSON CCDS [facility] CATH DILATED,NON ISCHEMIC CM,ATRIAL FLUTTER,LEG SWELLIN [id number] 08/09/2013 09:39:00 08/09/2013 23:59:59 CLS Outpatient HERON TANG FACC, MONCHO DYSON CCDS [facility] CARD A FIB,CARDIOMYOPATHY [id number] 06/14/2013 03:24:00 06/17/2013 13:05:00 DIS Inpatient RAHEEM WATKINS MD [facility] CSD ELEVATED TROP,AMS,CELLULITIS,HYPONATREMIA,THYROID [id number] 05/23/2013 10:55:00 05/26/2013 13:07:00 DIS Outpatient RAHEEM WATKINS MD [facility] CATH HYPOXIA
[2018-07-24 16:54] LABS: ABG OXYGEN SATURATION 95 % (94-100); ABG PCO2 56 MMHG (35-45); ABG PH 7.44 (7.37-7.43); ABG PO2 72 MMHG (79-93); ABG TCO2 39.9 MMOL/L (21.0-31.0)
[2018-07-24 16:55] LABS: ALLENS TEST YES-POS; INSPIRED O2 ROOM AIR; PATIENT TEMP 96.5; VENTILATOR NO
[2018-07-24] MEDS ORDERED: NS IV 1000 ML 1,000 ML IV SCH (17:15)
--- OUTSIDE RECORDS SUMMARY | 2018-07-24 17:31 | XMS REPORT | Continuity of Care Document ---
Author Organization Unknown Address Unknown Allergies Active Description Code Type Severity Reaction Onset Reported/Identified Relationship to Patient Clinical Status Yes Coreg Drug Allergy N/A N/A 06/03/2013 Yes CRILL OIL CRILL OIL Mild N/A 06/14/2013 Yes carvedilol [id number] Drug Allergy Moderate N/A 12/12/2017 Yes warfarin [id number] Drug Allergy Mild ULCERS 12/12/2017 Medications There [...] K 786.09 RESPIRATORY ABNORMALITY OTHER 05/08/2013 SABRINA WEB CONTENT DIRECTOR, IMANI R 244.9 UNSPECIFIED ACQUIRED HYPOTHYROIDISM 05/08/2013 SABRINA WEB CONTENT DIRECTOR, IMANI R 401.1 BENIGN ESSENTIAL HYPERTENSION 05/08/2013 SABRINA PORTERN, IMANI R 782.3 EDEMA 05/08/2013 SABRINA WEB CONTENT DIRECTOR, IMANI R 786.09 RESPIRATORY ABNORMALITY OTHER 05/08/2013 [...] MD 786.09 RESPIRATORY ABNORMALITY OTHER 05/08/2013 AMADAOksana WEB CONTENT DIRECTOR, MARCK L 244.9 UNSPECIFIED ACQUIRED HYPOTHYROIDISM 05/08/2013 ROCCO WEB CONTENT DIRECTOR, MARCK L 401.1 BENIGN ESSENTIAL HYPERTENSION 05/08/2013 AMADAL WEB CONTENT DIRECTOR, MARCK L 782.3 EDEMA 05/08/2013 AMADAOksana WEB CONTENT DIRECTOR, MARCK L 786.09 RESPIRATORY ABNORMALITY OTHER 05/08/2013 [...] WANDA K V76.51 COLON CANCER SCREENING 05/15/2013 CASISA CESAR APRN 428.0 CONGESTIVE HEART FAILURE UNSPECIFIED [...] CESAR APRN 599.9 UROLOGIC DISORDERS 06/03/2013 CASSIA CSEAR APRN 790.93 PSA ELEVATED 06/03/2013 CASSIA CESAR [...] LONG-TERM (CURRENT) USE OF ANTICOAGULANTS 06/03/2013 SABRINA WEB CONTENT DIRECTOR, IMANI R 519.9 RESPIRATORY DISORDERS 06/03/2013 SABRINA WEB CONTENT DIRECTOR, IMANI R 599.9 UROLOGIC DISORDERS 06/03/2013 SABRINA WEB CONTENT DIRECTOR, IMANI R 790.93 PSA ELEVATED 06/03/2013 SABRINA WEB CONTENT DIRECTOR, IMANI R V58.61 LONG-TERM (CURRENT) USE OF [...] ADULT 06/26/2018 SUE DICKERSON DO Ot Z79.01 ELECTROCARDIOGRAPH TECHNICIAN (CURRENT) USE OF ANTICOAGULANT 06/26/2018 SUE DICKERSON DO Ot Z79.899 OTHER ELECTROCARDIOGRAPH TECHNICIAN (CURRENT) DRUG THERAPY 06/28/2018 SUE DICKERSON DO [...] ADULT 06/28/2018 SUE DICKERSON DO Ot Z79.01 SNF (CURRENT) USE OF ANTICOAGULANT 06/28/2018 SUE DICKERSON DO Ot Z79.899 OTHER SNF (CURRENT) DRUG THERAPY 07/12/2018 HERON TANG FACC, [...] (CONGESTIVE) HEART FAIL 07/12/2018 HERON TANG FACC, [facility] FACP CCDS Ot Z68.36 BODY MASS INDEX (BMI) 36.0-36.9, ADULT Procedures Code Description [place] [address] ROUTINE VENIPUNCTURE 05/08/2013 04509 XRAY CHEST 2 VIEW 05/08/2013 99354 OXIMETRY 05/08/2013 4401134 GFR CALC (RESULT ONLY) 05/08/2013 61709 CMP 05/08/2013 23743 CBC 05/08/2013 70108 BNP 05/09/2013 75707 ROUTINE VENIPUNCTURE 05/15/2013 06117 HEMOCCULT 05/15/2013 91164 HEMOCCULT 05/15/2013 82526 BMP 05/15/2013 43143 CPK 05/15/2013 37643 BNP 05/15/2013 67837 OXIMETRY 05/15/2013 CARDIOLOG MONCHO SHELBY 05/15/2013 GENERAL S Sue Dickerson 05/15/2013 62402 ROUTINE VENIPUNCTURE 05/23/2013 92965 ROUTINE VENIPUNCTURE 05/23/2013 85762 EKG, TRACING 05/23/2013 01023 BMP 05/23/2013 96192 BNP 05/23/2013 70742 EKG, TRACING 05/23/2013 70215 OXIMETRY 05/23/2013 61630 OXIMETRY 05/23/2013 5299855 GFR CALC (RESULT ONLY) 05/23/2013 71872 BMP 05/23/2013 41697 BNP 05/23/2013 93518 ROUTINE VENIPUNCTURE 06/03/2013 30780 INR (IN HOUSE) 06/03/2013 02307 OXIMETRY 06/03/2013 04640 CBC 06/03/2013 0707811 GFR CALC (RESULT ONLY) 06/03/2013 83956 BMP 06/03/2013 49530 ROUTINE VENIPUNCTURE 06/12/2013 44052 INR (IN HOUSE) 06/12/2013 57986 CBC 06/12/2013 TICK TICKPANEL W/LYME 06/12/2013 56151 ROUTINE VENIPUNCTURE 06/28/20138584638 GFR CALC (RESULT ONLY) 06/28/2013 27654 CMP 06/28/2013 47876 TSH 06/28/2013 63870 OXIMETRY 07/03/2013 45490 OXIMETRY 07/17/2013 44031 ECHO 2D 08/13/2013 79913 OXIMETRY 11/13/2013 98537 UA W/ CULTURE IF INDICATED 11/13/2013 93726 CULTURE URINE 11/14/2013 76574 ROUTINE VENIPUNCTURE 12/05/2013 52575 UA LONG DIP 12/05/2013 16690 CBC 12/05/2013 05742 CMP 12/05/20133001023 GFR CALC (RESULT ONLY) 12/05/2013 58295 CRP 12/05/2013 48608 PSA TOTAL 12/05/2013 Results Test Result Range [facility] - 01/02/17 10:19 GLUCOSE 257 mg/dL 65-99 UREA NITROGEN (BUN) 18 mg/dL 7-25 CREATININE 0.83 mg/dL 0.70-1.25 eGFR NON-AFR. NAMIBIAN 92 mL/min/1.73m2 > OR=60 eGFR 106 mL/min/1.73m2 [...] - 09/04/17 12:20 TSH 7.43 mIU/L 0.40-4.50 [facility] - 02/01/18 16:00 GLUCOSE 144 mg/dL 65-99 UREA NITROGEN (BUN) 24 mg/dL 7-25 CREATININE 1.06 mg/dL 0.70-1.25 eGFR NON-AFR. NAMIBIAN 72 mL/min/1.73m2 > OR=60 eGFR 84 mL/min/1.73m2 [...] Status Pt. Type Provider Facility Loc./Unit Complaint [id number] 04/08/2014 10:11:00 04/08/2014 23:59:59 CLS Outpatient RAHEEM WATKINS MD [id number] 12/05/2013 14:35:00 12/05/2013 23:59:59 CLS Outpatient RAHEEM WATKINS MD [id number] 11/13/2013 10:34:00 11/13/2013 23:59:59 CLS Outpatient IMANI BENNETT APRN [id number] 10/10/2013 00:00:00 10/10/2013 23:59:59 CLS Outpatient WANDA VERGARA DO [id number] 08/13/2013 00:00:00 08/13/2013 23:59:59 CLS Outpatient WANDA VERGARA DO [id number] 07/17/2013 09:20:00 07/17/2013 23:59:59 CLS Outpatient WANDA VERGARA DO [id number] 07/03/2013 07:32:00 07/03/2013 23:59:59 CLS Outpatient ALBA FARIAS MD [id number] 06/12/2013 17:33:00 06/12/2013 23:59:59 CLS Outpatient CASSIA CESAR APRN [id number] 06/03/2013 09:47:00 06/03/2013 23:59:59 CLS Outpatient WADNA VERGARA DO [id number] 05/23/2013 08:47:00 05/23/2013 23:59:59 CLS Outpatient JAI DOWANDA [id number] 05/23/2013 08:47:00 05/23/2013 23:59:59 CLS Outpatient MARCK VALIENTE APRN [id number] 05/15/2013 10:34:00 05/15/2013 23:59:59 CLS Outpatient VERGARA DOWANDA [id number] 05/08/2013 13:09:00 05/08/2013 23:59:59 CLS Outpatient WANDA VERGARA DO [id number] 05/08/2013 13:09:00 05/08/2013 23:59:59 CLS Outpatient VERGARA DO, WANDA K [id number] 06/22/2018 11:20:00 06/22/2018 23:59:59 CLS Outpatient JUNE TANG, RAHEEM [facility] [id number] 02/01/2018 15:20:00 Document Registration [id number] 09/04/2017 11:40:00 Document Registration [id number] 01/02/2017 09:20:00 Document Registration [id number] 07/19/2018 15:44:00 07/19/2018 23:59:59 CLS Outpatient KENDRA MARIE [facility] LAB FS I50.22 [id number] 06/26/2018 10:04:00 06/26/2018 13:40:00 DIS Outpatient SUE DICKERSON DO [facility] ENDO BLOOD IN STOOLS [id number] 06/20/2018 10:15:00 06/20/2018 12:35:00 DIS Outpatient SUE DCIKERSON DO [facility] PREOP COLONOSCOPY/EGD [id number] 01/11/2018 14:34:00 01/11/2018 23:59:59 CLS Preadmit HERON TANG FACCMONCHO FACP CCDS [facility] CARD ATRIAL FLUTTER [id number] 12/12/2017 05:44:00 12/12/2017 14:33:00 DIS Outpatient SUE DICKERSON DO [facility] PREOP COLONOSCOPY/EGD [id number] 10/09/2017 21:00:00 10/09/2017 23:59:59 CLS Preadmit KEITH WILLINGHAM MD Via [facility] SLEEP OBSTRUCTIVE SLEEP APNEA [id number] 09/12/2017 20:03:00 09/13/2017 06:30:00 DIS Outpatient KEITH WILLINGHAM MD Via [facility] SLEEP OBSTRUCTIVE SLEEP APNEA [id number] 07/25/2017 09:30:00 07/25/2017 23:59:59 CLS Preadmit KENDRA MARIE [facility] CARD I48.0 ATRIAL FLUTTER [id number] 07/25/2017 08:58:00 07/25/2017 12:23:00 DIS Outpatient HERON TANG FACC, MONCHO DYSON CCDS [facility] CATH DILATED,NON ISCHEMIC CM,ATRIAL FLUTTER,LEG SWELLIN [id number] 08/09/2013 09:39:00 08/09/2013 23:59:59 CLS Outpatient HERON TANG FACC, MONCHO DYSON CCDS [facility] CARD A FIB,CARDIOMYOPATHY [id number] 06/14/2013 03:24:00 06/17/2013 13:05:00 DIS Inpatient RAHEEM WATKINS MD Via [facility] CSD ELEVATED TROP,AMS,CELLULITIS,HYPONATREMIA,THYROID [id number] 05/23/2013 10:55:00 05/26/2013 13:07:00 DIS Outpatient RAHEEM WATKINS MD [facility] CATH HYPOXIA
[2018-07-24] MEDS ORDERED: CATHETER FLUSH 10 ML SYR IV PRN (17:45)
[2018-07-24] MEDS: RT-ALBUTEROL/IPRATROPIUM 3 ML (DUONEB) VIAL INH SCH ×2 (18:15→21:47)
--- NOTE | 2018-07-24 18:48 | Consultation-Cardiology ---
HPI-Cardiology Cardiology Consultation: Date of Consultation 07/24/18 Time Seen by a Provider: 18:15 Date of Admission Attending Physician Nancy Akins MD Admitting Physician Pool Tristan MD Consulting Physician MONCHO SHELBY MD, MA, FACP, FACC, FSCAI, CCDS HPI: Chief Complaint: CC: Weakness, shortness of breath, leg swelling HPI Mr. Bains is a 68 year old male whom I have seen in the ED. He is accompanied by his . He reports he was having increasing bilat LE swelling for which his diuretic regimen had recently been increased. However, he reports he was having increasing gen weakness and fatigue which he felt was d/t a reaction to his diuretic regimen. Therefore, he stopped his diuretics and was feeling somewhat better for a few days. He then began to have increasing bilat LE swelling. He restarted his diuretics which was helping his swelling somewhat, but he continued to feel progressively weak. He states he was incontinent of urine last noc. He reports chronic exertional dyspnea which he feels has been somewhat worse the last month with frequent non-productive cough. He denies any c/o CP, palpitations, syncope or near syncope. Review of Systems-Cardiology Review of Systems Constitutional: No chills, No fever; malaise Eyes: No vision change Ears/Nose/Throat: No epistaxis, No nasal drainage, No recent hearing loss, No ulcerations Respiratory: As described under HPI Cardiovascular: As described under HPI Gastrointestinal: No constipation, No diarrhea, No nausea, No vomiting Genitourinary: incontinence Musculoskeletal: joint pain (chronic) Skin: No rash, No ulcerations Psychiatric/Neurological: No seizure, No focal weakness, No syncope Hematologic: No bleeding abnormalities All Other Systems Reviewed Negative Unless Noted: Yes AGW-Uokwdh-Gpulcx Hx Patient Social History Alcohol Use: Denies Use Recreational Drug Use: No Smoking Status: Never a Smoker 2nd Hand Smoke Exposure: No Recent Foreign Travel: No Recent Infectious Disease Expo: No Immunizations Up To Date Tetanus Booster (TDap): Unknown Date of Pneumonia Vaccine: Dec 12, 2016 Date of Influenza Vaccine: Dec 04, 2017 Past Medical History PMH As described under Assessment. Family Medical History Family Medical History: Family h/o father having CAD with CT in his 80's as well as CHF. Mother had a ho HTN and HLD. Family History: Congestive heart failure 03 FATHER (87 ) Family history: Diabetes mellitus 03 MOTHER (55 ) Family history: Hypertension 03 MOTHER (50 ) Hypercholesterolemia 03 MOTHER (55 ) Myocardial infarction 03 FATHER, Onset:87 Allergies and Home Medications Allergies Coded Allergies: carvedilol (Verified Allergy, Intermediate, Takes Metoprolol at home, 07/24/18) warfarin (Verified Allergy, Mild, ULCERS, 12/12/17) Home Medications Apixaban 2.5 Mg Tablet, 2.5 MG PO BID, (Reported) Diazepam 5 Mg Tablet, 5 MG PO BID, (Reported) Furosemide 40 Mg Tablet, 40 MG PO DAILY, (Reported) Levothyroxine Sodium 175 Mcg Tablet, 175 MCG PO DAILY, (Reported) Lisinopril 40 Mg Tablet, 40 MG PO DAILY, (Reported) Magnesium Oxide 400 Mg Tablet, 400 MG PO BID, (Reported) Metolazone 2.5 Mg Tablet, 2.5 MG PO DAILY, (Reported) Metoprolol Tartrate 100 Mg Tablet, 100 MG PO BID, (Reported) Multivitamin 1 Each Tablet, 1 EACH PO DAILY, (Reported) Potassium Chloride 10 Meq Tab.er.prt, 10 MEQ PO DAILY, (Reported) Pregabalin 200 Mg Capsule, 200 MG PO TID, (Reported) Saw/Vit E/Sod Era/Lyc/Beta/Pyg 1 Each Tablet, 1 EACH PO DAILY, (Reported) Spironolactone 50 Mg Tablet, 50 MG PO DAILY, (Reported) Patient Home Medication List Home Medication List Reviewed: Yes Physical Exam-Cardiology Physical Exam Vital Signs/I&O 07/24/18 07/24/18 07/24/18 07/24/18 14:22 14:29 16:42 17:45 Temp 95.6 Pulse 60 61 Resp 17 B/P (MAP) 119/83 (95) 82/40 (54) Pulse Ox 94 96 99 92 O2 Delivery Nasal Cannula Nasal Cannula Nasal Cannula Room Air O2 Flow Rate 4.00 4.00 5.00 07/24/18 07/24/18 17:56 18:00 Pulse 63 62 B/P (MAP) 118/76 (90) Pulse Ox 93 O2 Delivery Room Air Capillary Refill : Greater Than 3 Seconds Constitutional: AAO x 3, well-developed, well-nourished HEENT: PERRL, hearing is well preserved, oral hygience is good Neck: No carotid bruit; carotid pulses are 2 + bilaterally Respiratory: No accessory muscle use, No respiratory distress; chest expansion is symmetric, chest is bilaterally symmetric, lungs clear to auscultation Cardiovascular: regular rate-rhythm; No JVD; S1 and S2, systolic murmur Gastrointestinal: No tender; soft, round, audible bowel sounds Rectal: deferred Extremities: swelling (2 (+) bilat LE swelling) Neurologic/Psychiatric: alert, grossly intact, power is 5/5 both on sides Skin: No rash, No ulcerations; other (excoriations to legs and arms) Data Review Labs Laboratory Tests 07/24/18 14:26: White Blood Count 10.4, Red Blood Count 5.17, Hemoglobin 17.5, Hematocrit 54, Mean Corpuscular Volume 105H, Mean Corpuscular Hemoglobin 34, Mean Corpuscular Hemoglobin Concent 32, Red Cell Distribution Width 15.8H, Platelet Count 214, Mean Platelet Volume 13.0H, Neutrophils (%) (Auto) 58, Lymphocytes (%) (Auto) 21, Monocytes (%) (Auto) 15H, Eosinophils (%) (Auto) 4, Basophils (%) (Auto) 1, Neutrophils # (Auto) 6.1, Lymphocytes # (Auto) 2.2, Monocytes # (Auto) 1.6H, Eosinophils # (Auto) 0.5H, Basophils # (Auto) 0.1, Erythrocyte Sedimentation Rate 2, Sodium Level 137, Potassium Level 5.3H, Chloride Level 90L, Carbon Dioxide Level 39H, Anion Gap 8, Blood Urea Nitrogen 73H, Creatinine 1.97H, Estimat Glomerular Filtration Rate 34, BUN/Creatinine Ratio 37, Glucose Level 129H, Calcium Level 10.6H, Corrected Calcium 10.6H, Magnesium Level 2.4, Total Bilirubin 0.5, Aspartate Amino Transf (AST/SGOT) 27, Alanine Aminotransferase (ALT/SGPT) 19, Alkaline Phosphatase 96, Troponin I 0.933*H, C-Reactive Protein High Sensitivity 3.69H, B-Type Natriuretic Peptide 298.6H, Total Protein 8.7H, Albumin 4.0, Thyroid Stimulating Hormone (TSH) 3.79 07/24/18 14:55: Urine Color YELLOW, Urine Clarity SLIGHTLY CLOUDY, Urine pH 6, Urine Specific Seymour 1.010L, Urine Protein 2+H, Urine Glucose (UA) NEGATIVE, Urine Ketones NEGATIVE, Urine Nitrite NEGATIVE, Urine Bilirubin NEGATIVE, Urine Urobilinogen NORMAL, Urine Leukocyte Esterase 3+H, Urine RBC (Auto) 5+H, Urine RBC 2-5H, Urine WBC >100H, Urine Crystals NONE, Urine Bacteria FEWH, Urine Casts NONE, Urine Mucus NEGATIVE, Urine Culture Indicated YES 07/24/18 15:47: Lactic Acid Level 1.07 07/24/18 16:30: Blood Gas Puncture Site RT RADIAL, Blood Gas Patient Temperature 96.5, Arterial Blood pH 7.44H, Arterial Blood Partial Pressure CO2 56H, Arterial Blood Partial Pressure O2 72L, Arterial Blood HCO3 38H, Arterial Blood Total CO2 39.9H, Arterial Blood Oxygen Saturation 95, Arterial Blood Base Excess 13.0H, J Carlos Test YES-POS, Blood Gas Ventilator Setting NO, Blood Gas Inspired Oxygen ROOM AIR A/P-Cardiology Assessment/Admission Diagnosis Acute on Chronic resp failure Troponin elevation r/t chronic hypoxemia (Type 2 CT) Acute on Chronic systolic CHF Acute renal insufficiency likely d/t aggressive diuresis UTI - management per medical services Hyperkalemia likely d/t renal insuff due to intravascular volume depletion 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 Last echo of 07/05/18 shows mod conc LVH and LVEF 30-35%; grade 1 alicea dysfunction; mod to sev LA dilatation, mod MAC, AoV sclerosis w/o stenosis; PASP was 60 mmHg Nocturnal and exercise-related hypoxemia, managed by Dr Patrick and Dr Tristan No significant CAD on cath of April [address] Beltran A flutter treated with elec CV in April [address] Beltran. Continuing episodes of A Flutter with a controlled vent response on ILR recordings that was implanted on 07/25/17 Refuses warfarin or Xarelto. Currently taking Eliquis Obesity with BMI approx 45 H/o alcohol abuse, states quit in June 2018 H/o hypothyroidism, treated with thyroid replacement therapy. Diagnosed with iatrogenic hyperthyroidism. Thyroid is being managed by his shravan meier Discussion and Recomendations Complex management due to multiple comorbidities Treatment of resp failure is by the Med S[facility] Acute on chronic renal failure likely d/t aggressive diuresis - tx with IVF Continue diuretics for heart failure (change to once daily) Continue Eliquis 2.5 mg BID d/t acute renal failure Hold nephrotoxic agents D/t hyperkalemia hold PRINCESS(-) and aldactone Continue BB tx Monitor lab closely Further recs will be based on his hospital course We would like to thank Medical Services for this consult MONCHO SHELBY MD FACP FACC CCDS July 24, 2018 18:48
--- NOTE | 2018-07-24 19:37 | NUR ---
ADMIT FROM ER. PATIENT ALERT AND ORIENTED WITHOUT COMPLAINTS OF PAIN OR DISCOMFORTS. VITAL SIGNS STABLE. IV INFUSING WELL. PATIENT EDUCATED ON ROOM, CALL LIGHT, VISITING. VERBALIZED UNDERSTANDING. REPORT TO ONCOMING RN.
[2018-07-24] MEDS ORDERED: RT-ALBUTEROL SULF 2.5 MG/3 ML PRE-MIX VIAL INH PRN (19:45)
[2018-07-24] MEDS: APIXABAN 2.5 MG (ELIQUIS) TABLET PO SCH (21:20)
[2018-07-24] MEDS: meTOprolol TARTRATE 50 MG (LOPRESSOR) TAB PO SCH (21:20)
[2018-07-25] VITALS (8 sets, daily range): BP systolic 106–134; BP diastolic 51–81
[2018-07-25] MEDS: RT-ALBUTEROL/IPRATROPIUM 3 ML (DUONEB) VIAL INH SCH ×6 (02:35→22:11)
[2018-07-25 04:07] LABS: BASOPHILS # (AUTO) 0.1 10^3/uL (0.0-0.1); BASOPHILS % (AUTO) 1 % (0-10); EOSINOPHILS # (AUTO) 0.4 10^3/uL (0.0-0.3); EOSINOPHILS % (AUTO) 4 % (0-10); HEMATOCRIT 51 % (40-54); HEMOGLOBIN 16.4 G/DL (13.3-17.7); LYMPHOCYTES # (AUTO) 2.4 X 10^3 (1.0-4.0); LYMPHOCYTES % (AUTO) 23 % (12-44); MEAN CORPUSCULAR HEMOGLOBIN 34 PG (25-34); MEAN CORPUSCULAR HGB CONC 32 G/DL (32-36); MEAN CORPUSCULAR VOLUME 105 FL (80-99); MEAN PLATELET VOLUME 12.6 FL (7.4-10.4); MONOCYTES # (AUTO) 1.3 X 10^3 (0.0-1.0); MONOCYTES % (AUTO) 12 % (0-12); NEUTROPHILS # (AUTO) 6.5 X 10^3 (1.8-7.8); NEUTROPHILS % (AUTO) 61 % (42-75); PLATELET COUNT 204 10^3/uL (130-400); RED CELL DISTRIBUTION WIDTH 15.8 % (10.0-14.5); WHITE BLOOD COUNT 10.7 10^3/uL (4.3-11.0)
[2018-07-25 04:28] LABS: ALBUMIN 3.5 GM/DL (3.2-4.5); BILIRUBIN,TOTAL 0.5 MG/DL (0.1-1.0); CREATININE SERUM 1.69 MG/DL (0.60-1.30); MAGNESIUM 2.3 MG/DL (1.8-2.4); PHOSPHORUS 6.5 MG/DL (2.3-4.7); POTASSIUM 5.2 MMOL/L (3.6-5.0); TOTAL PROTEIN 7.7 GM/DL (6.4-8.2)
--- NOTE | 2018-07-25 05:36 | Pulmonary Consultation ---
History of Present Illness History of Present Illness Date of Consultation 07/25/18 05:32 Time Seen by Provider: 05:32 Date of Admission History of Present Illness 68yo with morbid obesity, OHS, CHF, CAD presented secondary to worsening SOB, weakness, and increased LE edema. Symptoms have been worsening over the last month. PT was on a diuretic at home however he stopped using it because of worsening weakness and fatigue. SOB is much worse with exertion however still present at rest. He has had similar prior episodes in the past. He denies productive cough or any c/o CP, palpitations, syncope or near syncope. Allergies and Home Medications Allergies Coded Allergies: carvedilol (Verified Allergy, Intermediate, Takes Metoprolol at home, 07/24/18) warfarin (Verified Allergy, Mild, ULCERS, 12/12/17) Home Medications Apixaban 2.5 Mg Tablet, 2.5 MG PO BID, (Reported) Diazepam 5 Mg Tablet, 5 MG PO BID, (Reported) Furosemide 40 Mg Tablet, 40 MG PO DAILY, (Reported) Levothyroxine Sodium 175 Mcg Tablet, 175 MCG PO DAILY, (Reported) Lisinopril 40 Mg Tablet, 40 MG PO DAILY, (Reported) Magnesium Oxide 400 Mg Tablet, 400 MG PO BID, (Reported) Metolazone 2.5 Mg Tablet, 2.5 MG PO DAILY, (Reported) Metoprolol Tartrate 100 Mg Tablet, 100 MG PO BID, (Reported) Multivitamin 1 Each Tablet, 1 EACH PO DAILY, (Reported) Potassium Chloride 10 Meq Tab.er.prt, 10 MEQ PO DAILY, (Reported) Pregabalin 200 Mg Capsule, 200 MG PO TID, (Reported) Saw/Vit E/Sod Era/Lyc/Beta/Pyg 1 Each Tablet, 1 EACH PO DAILY, (Reported) Spironolactone 50 Mg Tablet, 50 MG PO DAILY, (Reported) Past Pqdpkkg-Rowrdz-Wriahr Hx Past Med/Social Hx: Reviewed Nursing Past Med/Soc Hx Patient Social History Alcohol Use: Denies Use Recreational Drug Use: No Smoking Status: Never a Smoker 2nd Hand Smoke Exposure: No Recent Foreign Travel: No Contact w/Someone Who Travel: No Recent Infectious Disease Expo: No Recent Hopitalizations: No Immunizations Up To Date Tetanus Booster (TDap): Unknown Date of Pneumonia Vaccine: Feb 27, 2017 Date of Influenza Vaccine: Dec 04, 2017 Seasonal Allergies Seasonal Allergies: No Past Medical History Surgeries: Yes (crush injury to right arm with fasciotomy, left shoulder FX, COLONOSCOPY) Respiratory: Yes (dyspnea) Asthma, Chronic Bronchitis, Sleep Apnea Currently Using CPAP: No Currently Using BIPAP: No Cardiac: Yes (VERY POOR HISTORIAN-) Irregular Heartbeat Neurological: No Reproductive Disorders: No Sexually Transmitted Disease: No HIV/AIDS: No Genitourinary: Yes Benign Prostatic Hyperpl Gastrointestinal: No Musculoskeletal: Yes Arthritis, Fibromyalgia Endocrine: Yes Hypothyroidsim HEENT: Yes (READING GLASSES) Loss of Vision: Bilateral Hearing Impairment: Hard of Hearing Cancer: No Psychosocial: No Integumentary: Yes (flushed coloring) Blood Disorders: No Adverse Reaction/Blood Tranf: No (N/A) Family Medical History Reviewed Nursing Family Hx Congestive heart failure 03 FATHER (87 ) Family history: Diabetes mellitus 03 MOTHER (55 ) Family history: Hypertension 03 MOTHER (50 ) Hypercholesterolemia 03 MOTHER (55 ) Myocardial infarction 03 FATHER, Onset:87 Review of Systems Time Seen by Provider: 06:22 Constitutional: Sweats, Weakness, Malaise; No: Fever, Chills, Other Eyes: No: Pain, Vision change, Conjunctivae inflammation, Eyelid inflammation, Other, Redness ENT: Nose congestion; No: Ear pain, Ear discharge, Nose pain, Nose discharge, Mouth pain, Mouth swelling, Throat pain, Throat swelling, Other Respiratory: Cough, Dry, Shortness of breath, SOB with excertion, Wheezing; No: Hemoptysis, Pleuritic Pain Cardiovascular: Palpitations, Orthopnea, Paroxysmal Noc. Dyspnea, Edema, Lt Headedness Gastrointestinal: Constipation; No: Nausea, Vomiting, Abdominal Pain, Diarrhea, Melena, Hematochezia, Other Neurological: Weakness Sepsis Event Evaluation Height, Weight, BMI Height: 6'1.00" Weight: 340lbs. 2.0oz. 154.100736qb; 44.9 BMI Method:Stated Exam Exam Vital Signs Date Time Temp Pulse Resp B/P (MAP) Pulse Ox O2 Delivery O2 Flow Rate FiO2 07/25/18 04:00 96 Nasal Cannula 5.00 07/25/18 02:35 92 Nasal Cannula 5.00 07/25/18 01:00 63 07/25/18 00:00 56 13 116/70 (85) 91 Nasal Cannula 5.00 07/25/18 00:00 96 Nasal Cannula 5.00 07/24/18 21:47 95 Nasal Cannula 5.00 07/24/18 21:45 60 17 142/65 (90) 95 Nasal Cannula 5.00 07/24/18 21:00 96 Nasal Cannula 5.00 07/24/18 20:47 96.7 58 18 118/76 90 Nasal Cannula 5.00 5.00 07/24/18 20:00 59 123/69 (87) 96 Nasal Cannula 5.00 07/24/18 20:00 96.7 07/24/18 20:00 96 Nasal Cannula 5.00 07/24/18 19:00 57 93/65 (74) 96 Nasal Cannula 5.00 07/24/18 19:00 57 07/24/18 18:55 90 Nasal Cannula 5.00 07/24/18 18:15 58 93 41 07/24/18 18:00 62 118/76 (90) 93 Room Air 07/24/18 17:56 63 07/24/18 17:45 61 82/40 (54) 92 Room Air 07/24/18 17:30 96.5 64 18 117/94 (102) 93 Nasal Cannula 4.00 07/24/18 16:42 99 Nasal Cannula 5.00 07/24/18 14:29 95.6 60 17 119/83 (95) 96 Nasal Cannula 4.00 07/24/18 14:22 94 Nasal Cannula 4.00 I & O 07/25/18 07:00 Intake Total 1240 ml Balance 1240 ml Height & Weight Height: 6'1.00" Weight: 340lbs. 2.0oz. 154.499860ab; 44.9 BMI Method:Stated General Appearance: No Apparent Distress, WD/WN, Obese HEENT: PERRL/EOMI, Pharynx Normal Neck: Non Tender, Supple Respiratory: Lungs Clear, Normal Breath Sounds Cardiovascular: Regular Rate, Rhythm, No Edema, No Murmur Capillary Refill: Greater Than 3 Seconds Extremity: Normal Range of Motion, Non Tender, Pedal Edema (2+ up to knees bilateral) Neurologic/Psychiatric: Alert, Oriented x3 Skin: Warm/Dry, Ecchymosis Results Lab Laboratory Tests 07/24/18 14:26 07/25/18 03:45 Assessment/Plan Assessment/Plan Acute on chronic respiratory failure Morbid obesity with OHS -Pt would benefit from home vent to mask -vent to mask QHS -ABG C02 56 Elevated troponin probably secondary hypoxia -Cardiology is following Chronic systolic/grade 1 diastolic CHF EF 30-35 % -Continue lasix Acute renal failure -Monitor Hyperkalemia -Lasix -Monitor UTI -SHEREEN Berumen DO July 25, 2018 05:36
[2018-07-25] MEDS ORDERED: FUROSEMIDE 40 MG (LASIX) TAB PO SCH (07:00)
--- NOTE | 2018-07-25 07:40 | Diagnostic Imaging Report ---
INDICATION: Weakness. Shortness of air. COMPARISON: 07/24/2018 FINDINGS: Single frontal radiographic view of the chest was obtained and demonstrates stable [id number] cardiomegaly. Pulmonary vasculature is within normal limits. Linear opacities are noted within both lower lung knight consistent with platelike atelectasis and/or scarring. There is no new dense alveolar consolidation, large effusion, nor pneumothorax. Bony structures show no gross acute abnormalities. IMPRESSION: 1. Mild cardiomegaly, but no evidence of failure or focal infiltrate. Dictated by: Dictated on workstation # [id number]
[2018-07-25] MEDS: FUROSEMIDE 40 MG/4 ML INJ (LASIX) IVP SCH (08:32)
[2018-07-25] MEDS: APIXABAN 2.5 MG (ELIQUIS) TABLET PO SCH ×2 (08:33→20:29)
[2018-07-25] MEDS: meTOprolol TARTRATE 50 MG (LOPRESSOR) TAB PO SCH ×2 (08:33→22:14)
[2018-07-25] MEDS: cefTRIAXone 1,000 MG/SWFI 10 ML IV PUSH IV SCH ×2 (08:33)
--- NOTE | 2018-07-25 09:16 | NUR ---
MATTLEXUSVIOLETTEOLINDA G admitted to room 408, with an admitting diagnosis of CHF AND UTI, on 07/24/18 from ICU via WHEELCHAIR, accompanied by AND RN.OLINDA NICHOLS introduced to surroundings, call light, bed controls, phone, TV, temperature control, lights, meal times, smoking policy, visitor policy, side rail policy, bathrooms and showers. Patient Rights given to patient in the handbook. OLINDA NICHOLS verbalizes understanding that [facility] is not responsible for the loss or damage to any personal effects or valuables that are kept in the patients posession during their hospitalization. Patient and/or family were informed about the Rapid Response Team and its purpose. PATIENT CURRENTLY ON 5L NASAL CANNULA. NO COMPLAINTS OR FURTHER NEEDS AT THIS TIME.
--- NOTE | 2018-07-25 09:38 | Progress Note-Cardiology ---
Cardiology SOAP Progress Note Subjective: Sitting up in bed. Feels his LE swelling has improved. Chronic mild to mod dyspnea, which is unchanged. C/O gen weakness. No c/o CP, palpitations. Objective: I&O/Vital Signs 07/25/18 07/25/18 07/25/18 07/25/18 01:00 02:35 04:00 04:00 Temp 97.2 Pulse 63 58 Resp 18 B/P (MAP) 124/73 (90) Pulse Ox 92 93 96 O2 Delivery Nasal Cannula Nasal Cannula Nasal Cannula O2 Flow Rate 5.00 5.00 5.00 07/25/18 07/25/18 07/25/18 07/25/18 06:41 07:00 08:00 08:00 Pulse 60 58 B/P (MAP) 122/61 (81) Pulse Ox 92 95 96 O2 Delivery Nasal Cannula Nasal Cannula Nasal Cannula O2 Flow Rate 5.00 5.00 5.00 07/25/18 07/25/18 07/25/18 09:00 10:17 10:22 Temp 97.8 Pulse 63 Resp 20 B/P (MAP) 128/81 (97) Pulse Ox 96 95 92 O2 Delivery Nasal Cannula Nasal Cannula Nasal Cannula O2 Flow Rate 5.00 5.00 5.00 07/25/18 00:00 Intake Total 1240 ml Balance 1240 ml Weight (Pounds): 317 Weight (Ounces): 2.0 Weight (Calculated Kilograms): 143.951296 Constitutional: AAO x 3, well-developed, well-nourished Respiratory: No accessory muscle use, No respiratory distress; chest expansion is symmetric, chest is bilaterally symmetric, lungs clear to auscultation Cardiovascular: regular rate-rhythm; No JVD; S1 and S2, systolic murmur Gastrointestional: No tender; soft, round, audible bowel sounds Extremities: swelling (mod bilat LE swelling) Neurologic/Psychiatric: alert, grossly intact, power is 5/5 both on sides Skin: No rash, No ulcerations; other (excoriations to legs and arms) Results/Procedures: Labs Laboratory Tests 07/24/18 14:26: White Blood Count 10.4, Red Blood Count 5.17, Hemoglobin 17.5, Hematocrit 54, Mean Corpuscular Volume 105H, Mean Corpuscular Hemoglobin 34, Mean Corpuscular Hemoglobin Concent 32, Red Cell Distribution Width 15.8H, Platelet Count 214, Mean Platelet Volume 13.0H, Neutrophils (%) (Auto) 58, Lymphocytes (%) (Auto) 21, Monocytes (%) (Auto) 15H, Eosinophils (%) (Auto) 4, Basophils (%) (Auto) 1, Neutrophils # (Auto) 6.1, Lymphocytes # (Auto) 2.2, Monocytes # (Auto) 1.6H, Eosinophils # (Auto) 0.5H, Basophils # (Auto) 0.1, Erythrocyte Sedimentation Rate 2, Sodium Level 137, Potassium Level 5.3H, Chloride Level 90L, Carbon Dioxide Level 39H, Anion Gap 8, Blood Urea Nitrogen 73H, Creatinine 1.97H, Estimat Glomerular Filtration Rate 34, BUN/Creatinine Ratio 37, Glucose Level 129H, Calcium Level 10.6H, Corrected Calcium 10.6H, Magnesium Level 2.4, Total Bilirubin 0.5, Aspartate Amino Transf (AST/SGOT) 27, Alanine Aminotransferase (ALT/SGPT) 19, Alkaline Phosphatase 96, Troponin I 0.933*H, C-Reactive Protein High Sensitivity 3.69H, B-Type Natriuretic Peptide 298.6H, Total Protein 8.7H, Albumin 4.0, Thyroid Stimulating Hormone (TSH) 3.79 07/24/18 14:55: Urine Color YELLOW, Urine Clarity SLIGHTLY CLOUDY, Urine pH 6, Urine Specific [place] 1.010L, Urine Protein 2+H, Urine Glucose (UA) NEGATIVE, Urine Ketones NEGATIVE, Urine Nitrite NEGATIVE, Urine Bilirubin NEGATIVE, Urine Urobilinogen NORMAL, Urine Leukocyte Esterase 3+H, Urine RBC (Auto) 5+H, Urine RBC 2-5H, Urine WBC >100H, Urine Crystals NONE, Urine Bacteria FEWH, Urine Casts NONE, Urine Mucus NEGATIVE, Urine Culture Indicated YES 07/24/18 15:47: Lactic Acid Level 1.07 07/24/18 16:30: Blood Gas Puncture Site RT RADIAL, Blood Gas Patient Temperature 96.5, Arterial Blood pH 7.44H, Arterial Blood Partial Pressure CO2 56H, Arterial Blood Partial Pressure O2 72L, Arterial Blood HCO3 38H, Arterial Blood Total CO2 39.9H, Arterial Blood Oxygen Saturation 95, Arterial Blood Base Excess 13.0H, J Carlos Test YES-POS, Blood Gas Ventilator Setting NO, Blood Gas Inspired Oxygen ROOM AIR 07/25/18 03:45: White Blood Count 10.7, Red Blood Count 4.85, Hemoglobin 16.4, Hematocrit 51, Mean Corpuscular Volume 105H, Mean Corpuscular Hemoglobin 34, Mean Corpuscular Hemoglobin Concent 32, Red Cell Distribution Width 15.8H, Platelet Count 204, Mean Platelet Volume 12.6H, Neutrophils (%) (Auto) 61, Lymphocytes (%) (Auto) 23, Monocytes (%) (Auto) 12, Eosinophils (%) (Auto) 4, Basophils (%) (Auto) 1, Neutrophils # (Auto) 6.5, Lymphocytes # (Auto) 2.4, Monocytes # (Auto) 1.3H, Eosinophils # (Auto) 0.4H, Basophils # (Auto) 0.1, Sodium Level 139, Potassium Level 5.2H, Chloride Level 93L, Carbon Dioxide Level 33H, Anion Gap 13, Blood Urea Nitrogen 73H, Creatinine 1.69H, Estimat Glomerular Filtration Rate 41, BUN/Creatinine Ratio 43, Glucose Level 118H, Calcium Level 10.0, Corrected Calcium 10.4H, Phosphorus Level 6.5H, Magnesium Level 2.3, Total Bilirubin 0.5, Aspartate Amino Transf (AST/SGOT) 24, Alanine Aminotransferase (ALT/SGPT) 18, Alkaline Phosphatase 82, Total Protein 7.7, Albumin 3.5, Thyroid Stimulating Hormone (TSH) 3.05 Laboratory Tests 07/24/18 14:26 07/25/18 03:45 Procedures NAME: OLINDA NICHOLS [facility] REC#: [id number] PT STATUS: ADM IN : 1950 PHYSICIAN: SHEREEN FORREST DO ADMIT DATE: 07/24/18/ICU Draft Date of Exam:07/25/18 CHEST 1 VIEW, AP/PA ONLY INDICATION: Weakness. Shortness of air. COMPARISON: 07/24/2018 FINDINGS: Single frontal radiographic view of the chest was obtained and demonstrates stable [id number] cardiomegaly. Pulmonary vasculature is within normal limits. Linear opacities are noted within both lower lung knight consistent with platelike atelectasis and/or scarring. There is no new dense alveolar consolidation, large effusion, nor pneumothorax. Bony structures show no gross acute abnormalities. IMPRESSION: 1. Mild cardiomegaly, but no evidence of failure or focal infiltrate. 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 Last echo of 07/05/18 shows mod conc LVH and LVEF 30-35%; grade 1 alicea dysfunction; mod to sev LA dilatation, mod MAC, AoV sclerosis w/o stenosis; PASP was 60 mmHg Nocturnal and exercise-related hypoxemia, managed by Dr Patrick and Dr Tristan No significant CAD on cath of April [address] Beltran A flutter treated with elec CV in April [address] Beltran. Continuing episodes of A Flutter with a controlled vent response on ILR recordings that was implanted on 07/25/17 Refuses warfarin or Xarelto. Currently taking Eliquis Obesity with BMI approx 45 H/o alcohol abuse, states quit in June 2018 H/o hypothyroidism, treated with thyroid replacement therapy. Diagnosed with iatrogenic hyperthyroidism. Thyroid is being managed by his fam phy Plan: Complex management due to multiple comorbidities Treatment of resp failure is by the Med Svce Acute on chronic renal failure likely d/t aggressive diuresis - tx with IVF Continue diuretics for heart failure (change to once daily) Continue Eliquis 2.5 mg BID d/t acute renal failure Hold nephrotoxic agents D/t hyperkalemia hold PRINCESS(-) and aldactone Continue BB tx Monitor lab closely Physician Assessment Physician Assessment No cp or palp or syncope. Gen weakness and shortness of breath as before Lungs: scattered rhonchi and some wheezes over large airways Cor: reg Ext: no c/c. Mild to mod bilat leg edema A&P * As documented in our note above that I updated (italics) and as noted below * I discussed with him and his his CV issues * I discussed his case with Dr Akins * Management remains complex due to competing issues such as the need to give fluids for pre-renal azotemia and to continue some diuretics for cm and systolic CHF * We gave fluids overnight * We have reduced diuretics * Monitor labs KENDRA MARIE MORTGAGE COORDINATOR July 25, 2018 09:38 MONCHO SHELBY MD [facility] July 25, 2018 12:05
[2018-07-25] MEDS ORDERED: FURO80TA3 PO (10:14)
--- NOTE | 2018-07-25 10:48 | NUR ---
WENT OVER THE MEDICATION LIST FROM [facility] WITH THE PATIENT AND HE VERIFIED HOW HE TAKES EACH MEDICATION. HE ALSO TAKES A MTV DAILY, PROSTATE HEALTH DAILY, AND MAG OX BID OTC.
[2018-07-25] MEDS: NS IV 1000 ML 1,000 ML IV SCH ×2 (10:54→20:30)
[2018-07-25] MEDS: PREGABALIN 100 MG (LYRICA) CAPSULE PO SCH ×2 (13:25→20:29)
[2018-07-25] MEDS ORDERED: DIAZEPAM 5 MG (VALIUM) TABLET PO PRN (13:30)
--- NOTE | 2018-07-25 15:00 | History & Physicial (CHS) ---
HPI History of Present Illness: 68 yo male presented to ER he states because he was told he had kidney dysfunction on his labs. He has been having worsening shortness of breath over the last couple of weeks and had just gotten oxygen set up for home and was on 2 lpm, but states his SpO2 was running in the 80s even with that. He states his blood pressure was too high as well and he reports seeing Cardiology a couple of weeks ago and his blood pressure meds and diuretics were both upped, when he had follow up labs, he was told his renal function was down, and so he came in. History is a bit disjointed and does not seem to quite match the story reported in ER. Date seen by provider: July 25, 2018 Time Seen by Provider: 09:40 Attending Physician Alba Farias MD PCP Pool Tristan MD Consult Date of Admission July 24, 2018 at 16:03 Home Medications Home Medications Reviewed patient Home Medication Reconciliation performed by pharmacy medication reconciliations coordinate measuring machine technician and/or nursing. Patients Allergies have been reviewed. Allergies Coded Allergies: carvedilol (Verified Allergy, Intermediate, Takes Metoprolol at home, 07/24/18) warfarin (Verified Allergy, Mild, ULCERS, 12/12/17) EVY-Kpeawg-Qsijqb Hx Patient Social History Alcohol Use: Denies Use Recreational Drug Use: No Smoking Status: Never a Smoker 2nd Hand Smoke Exposure: No Recent Foreign Travel: No Contact w/other who traveled: No Recent Hopitalizations: No Recent Infectious Disease Expo: No Immunizations Up To Date Tetanus Booster (TDap): Unknown Date of Pneumonia Vaccine: Feb 27, 2017 Date of Influenza Vaccine: Dec 04, 2017 Past Medical History PMHx: Systolic congestive heart failure (EF 10-15% in 2013) Intermittent atrial fibrillation/flutter DMII HTN Fibromyalgia SurgHx: Right arm repair Family Medical History Family History: Congestive heart failure 03 FATHER (87 ) Family history: Diabetes mellitus 03 MOTHER (55 ) Family history: Hypertension 03 MOTHER (50 ) Hypercholesterolemia 03 MOTHER (55 ) Myocardial infarction 03 FATHER, Onset:87 Review of Systems (CHC) Constitutional: weight gain EENTM: nose congestion Respiratory: cough, short of breath Cardiovascular: No chest pain Gastrointestinal: No abdominal pain Musculoskeletal: muscle pain Skin: no symptoms reported Reviewed Test Results Reviewed Test Results Lab Laboratory Tests Test 07/24/18 14:26 07/24/18 14:55 07/24/18 15:47 07/24/18 16:30 Range/Units White Blood Count 10.4 4.3-11.0 10^3/uL Red Blood Count 5.17 4.35-5.85 10^6/uL Hemoglobin 17.5 13.3-17.7 G/DL Hematocrit 54 40-54 % Mean Corpuscular Volume 105 H 80-99 FL Mean Corpuscular Hemoglobin 34 25-34 PG Mean Corpuscular Hemoglobin Concent 32 32-36 G/DL Red Cell Distribution Width 15.8 H 10.0-14.5 % Platelet Count 214 130-400 10^3/uL Mean Platelet Volume 13.0 H 7.4-10.4 FL Neutrophils (%) (Auto) 58 42-75 % Lymphocytes (%) (Auto) 21 12-44 % Monocytes (%) (Auto) 15 H 0-12 % Eosinophils (%) (Auto) 4 0-10 % Basophils (%) (Auto) 1 0-10 % Neutrophils # (Auto) 6.1 1.8-7.8 X 10^3 Lymphocytes # (Auto) 2.2 1.0-4.0 X 10^3 Monocytes # (Auto) 1.6 H 0.0-1.0 X 10^3 Eosinophils # (Auto) 0.5 H 0.0-0.3 10^3/uL Basophils # (Auto) 0.1 0.0-0.1 10^3/uL Erythrocyte Sedimentation Rate 2 0-30 MM/HR Sodium Level 137 135-145 MMOL/L Potassium Level 5.3 H 3.6-5.0 MMOL/L Chloride Level 90 L 98-107 MMOL/L Carbon Dioxide Level 39 H 21-32 MMOL/L Anion Gap 8 5-14 MMOL/L Blood Urea Nitrogen 73 H 7-18 MG/DL Creatinine 1.97 H 0.60-1.30 MG/DL Estimat Glomerular Filtration Rate 34 BUN/Creatinine Ratio 37 Glucose Level 129 H 70-105 MG/DL Calcium Level 10.6 H 8.5-10.1 MG/DL Corrected Calcium 10.6 H 8.5-10.1 MG/DL Magnesium Level 2.4 1.8-2.4 MG/DL Total Bilirubin 0.5 0.1-1.0 MG/DL Aspartate Amino Transf (AST/SGOT) 27 5-34 U/L Alanine Aminotransferase (ALT/SGPT) 19 0-55 U/L Alkaline Phosphatase 96 40-136 U/L Troponin I 0.933 *H <0.028 NG/ML C-Reactive Protein High Sensitivity 3.69 H 0.00-0.50 MG/DL B-Type Natriuretic Peptide 298.6 H <100.0 PG/ML Total Protein 8.7 H 6.4-8.2 GM/DL Albumin 4.0 3.2-4.5 GM/DL Thyroid Stimulating Hormone (TSH) 3.79 0.35-4.94 UIU/ML Urine Color YELLOW Urine Clarity SLIGHTLY CLOUDY Urine pH 6 5-9 Urine Specific [place] 1.010 L 1.016-1.022 Urine Protein 2+ H NEGATIVE Urine Glucose (UA) NEGATIVE NEGATIVE Urine Ketones NEGATIVE NEGATIVE Urine Nitrite NEGATIVE NEGATIVE Urine Bilirubin NEGATIVE NEGATIVE Urine Urobilinogen NORMAL NORMAL MG/DL Urine Leukocyte Esterase 3+ H NEGATIVE Urine RBC (Auto) 5+ H NEGATIVE Urine RBC 2-5 H /HPF Urine WBC >100 H /HPF Urine Crystals NONE /LPF Urine Bacteria FEW H /HPF Urine Casts NONE /LPF Urine Mucus NEGATIVE /LPF Urine Culture Indicated YES Lactic Acid Level 1.07 0.50-2.00 MMOL/L Blood Gas Puncture Site RT RADIAL Blood Gas Patient Temperature 96.5 Arterial Blood pH 7.44 H 7.37-7.43 Arterial Blood Partial Pressure CO2 56 H 35-45 MMHG Arterial Blood Partial Pressure O2 72 L 79-93 MMHG Arterial Blood HCO3 38 H 23-27 MMOL/L Arterial Blood Total CO2 39.9 H 21.0-31.0 MMOL/L Arterial Blood Oxygen Saturation 95 94-100 % Arterial Blood Base Excess 13.0 H -2.5-2.5 MMOL/L J Carlos Test YES-POS Blood Gas Ventilator Setting NO Blood Gas Inspired Oxygen ROOM AIR Test 07/25/18 03:45 Range/Units White Blood Count 10.7 4.3-11.0 10^3/uL Red Blood Count 4.85 4.35-5.85 10^6/uL Hemoglobin 16.4 13.3-17.7 G/DL Hematocrit 51 40-54 % Mean Corpuscular Volume 105 H 80-99 FL Mean Corpuscular Hemoglobin 34 25-34 PG Mean Corpuscular Hemoglobin Concent 32 32-36 G/DL Red Cell Distribution Width 15.8 H 10.0-14.5 % Platelet Count 204 130-400 10^3/uL Mean Platelet Volume 12.6 H 7.4-10.4 FL Neutrophils (%) (Auto) 61 42-75 % Lymphocytes (%) (Auto) 23 12-44 % Monocytes (%) (Auto) 12 0-12 % Eosinophils (%) (Auto) 4 0-10 % Basophils (%) (Auto) 1 0-10 % Neutrophils # (Auto) 6.5 1.8-7.8 X 10^3 Lymphocytes # (Auto) 2.4 1.0-4.0 X 10^3 Monocytes # (Auto) 1.3 H 0.0-1.0 X 10^3 Eosinophils # (Auto) 0.4 H 0.0-0.3 10^3/uL Basophils # (Auto) 0.1 0.0-0.1 10^3/uL Sodium Level 139 135-145 MMOL/L Potassium Level 5.2 H 3.6-5.0 MMOL/L Chloride Level 93 L 98-107 MMOL/L Carbon Dioxide Level 33 H 21-32 MMOL/L Anion Gap 13 5-14 MMOL/L Blood Urea Nitrogen 73 H 7-18 MG/DL Creatinine 1.69 H 0.60-1.30 MG/DL Estimat Glomerular Filtration Rate 41 BUN/Creatinine Ratio 43 Glucose Level 118 H 70-105 MG/DL Calcium Level 10.0 8.5-10.1 MG/DL Corrected Calcium 10.4 H 8.5-10.1 MG/DL Phosphorus Level 6.5 H 2.3-4.7 MG/DL Magnesium Level 2.3 1.8-2.4 MG/DL Total Bilirubin 0.5 0.1-1.0 MG/DL Aspartate Amino Transf (AST/SGOT) 24 5-34 U/L Alanine Aminotransferase (ALT/SGPT) 18 0-55 U/L Alkaline Phosphatase 82 40-136 U/L Total Protein 7.7 6.4-8.2 GM/DL Albumin 3.5 3.2-4.5 GM/DL Thyroid Stimulating Hormone (TSH) 3.05 0.35-4.94 UIU/ML Radiology NAME: OLINDA NICHOLS [facility] REC#: [id number] PT STATUS: REG ER : 1950 PHYSICIAN: BEN PETIT MD ADMIT DATE: 07/24/18/ER Draft Date of Exam:07/24/18 CHEST 1 VIEW, AP/PA ONLY INDICATION: Weakness and shortness of air. TIME OF EXAM: 2:59 p.m. Correlation is made with prior study from 06/14/2013. FINDINGS: Heart appears enlarged. There is no infiltrate or failure. No effusion or pneumothorax is seen. IMPRESSION: No acute cardiopulmonary process is detected. Dictated on workstation # [id number] Dict: 07/24/18 1507 Trans: 07/24/18 1514 KB [id number] Interpreted by: ELADIA CLINTON MD Electronically signed by: Physical Exam-(CHC) Physical Exam Vital Signs VS - Last 72 Hours, by Label 07/24/18 07/24/18 07/24/18 07/24/18 14:22 14:29 16:42 17:30 Temp 95.6 96.5 Pulse 60 64 Resp 17 18 B/P (MAP) 119/83 (95) 117/94 (102) Pulse Ox 94 96 99 93 O2 Delivery Nasal Cannula Nasal Cannula Nasal Cannula Nasal Cannula O2 Flow Rate 4.00 4.00 5.00 4.00 07/24/18 07/24/18 07/24/18 07/24/18 17:45 17:56 18:00 18:15 Pulse 61 63 62 58 B/P (MAP) 82/40 (54) 118/76 (90) Pulse Ox 92 93 93 O2 Delivery Room Air Room Air FiO2 41 07/24/18 07/24/18 07/24/18 07/24/18 18:55 19:00 19:00 20:00 Pulse 57 57 B/P (MAP) 93/65 (74) Pulse Ox 90 96 96 O2 Delivery Nasal Cannula Nasal Cannula Nasal Cannula O2 Flow Rate 5.00 5.00 5.00 07/24/18 07/24/18 07/24/18 07/24/18 20:00 20:00 20:47 21:00 Temp 96.7 96.7 Pulse 59 58 Resp 18 B/P (MAP) 123/69 (87) 118/76 Pulse Ox 96 90 96 O2 Delivery Nasal Cannula Nasal Cannula Nasal Cannula O2 Flow Rate 5.00 5.00 5.00 5.00 07/24/18 07/24/18 07/25/18 07/25/18 21:45 21:47 00:00 00:00 Pulse 60 56 Resp 17 13 B/P (MAP) 142/65 (90) 116/70 (85) Pulse Ox 95 95 96 91 O2 Delivery Nasal Cannula Nasal Cannula Nasal Cannula Nasal Cannula O2 Flow Rate 5.00 5.00 5.00 5.00 07/25/18 07/25/18 07/25/18 07/25/18 01:00 02:35 04:00 04:00 Temp 97.2 Pulse 63 58 Resp 18 B/P (MAP) 124/73 (90) Pulse Ox 92 93 96 O2 Delivery Nasal Cannula Nasal Cannula Nasal Cannula O2 Flow Rate 5.00 5.00 5.00 07/25/18 07/25/18 07/25/18 07/25/18 06:41 07:00 08:00 08:00 Pulse 60 58 B/P (MAP) 122/61 (81) Pulse Ox 92 95 96 O2 Delivery Nasal Cannula Nasal Cannula Nasal Cannula O2 Flow Rate 5.00 5.00 5.00 07/25/18 07/25/18 07/25/18 07/25/18 09:00 10:17 10:22 12:00 Temp 97.8 97.7 Pulse 63 60 Resp 20 20 B/P (MAP) 128/81 (97) 130/64 (86) Pulse Ox 96 95 92 92 O2 Delivery Nasal Cannula Nasal Cannula Nasal Cannula Nasal Cannula O2 Flow Rate 5.00 5.00 5.00 5.00 07/25/18 07/25/18 07/25/18 12:00 13:00 14:05 Pulse 60 Pulse Ox 96 90 O2 Delivery Nasal Cannula Nasal Cannula O2 Flow Rate 5.00 5.00 Capillary Refill : Greater Than 3 Seconds General Appearance: mild distress Respiratory: decreased breath sounds Cardiovascular: regular rate, rhythm, no murmur Gastrointestinal: normal bowel sounds, non tender, soft Extremities: pedal edema Neurologic/Psychiatric: normal mood/affect Skin: warm/dry Assessment/Plan Assessment/Plan Admission Status: Inpatient Order (span 2 midnights) Reason for Inpatient Admission: Acute on chronic respiratory failure with CHF and acute renal insufficiency, complex management between fluid and diuresis. (1) Acute renal insufficiency Status: Acute Assessment & Plan: Suspect secondary to over-diuresis, will be difficult to balance his fluids. Improved this am with some fluid overnight. Has concomitant UTI, treating that as well. (2) Hyperkalemia Status: Acute Assessment & Plan: Secondary to MARIO, holding ACEI. (3) Acute heart failure Status: Acute Assessment & Plan: Cardiology consulted, appreciate recommendations. Acute on chronic systolic heart failure. Last echo of 07/05/18 shows mod conc LVH and LVEF 30-35%; grade 1 alicea dysfunction; mod to sev LA dilatation, mod MAC, AoV sclerosis w/o stenosis; PASP was 60 mmHg. Caution with diuresis given acute renal insufficiency, management per Cardiology. Qualifiers: Qualified Codes: I50.9 - Heart failure, unspecified (4) Elevated troponin Status: Acute Assessment & Plan: Suspect type II UT, Cardiology managing. (5) Urinary tract infection Status: Acute Assessment & Plan: Culture pending. On ceftriaxone. Qualifiers: Qualified Codes: N30.00 - Acute cystitis without hematuria (6) Hypothyroidism Status: Chronic Assessment & Plan: Resume home medications. (7) Diabetes mellitus, type 2 Status: Chronic Assessment & Plan: Diet controlled. Qualifiers: (8) Fibromyalgia Status: Chronic Assessment & Plan: Resume home medications. (9) Atrial flutter Status: Chronic Assessment & Plan: On Eliquis, normal heart rate currently. (10) DVT prophylaxis Status: Acute Assessment & Plan: On Eliquis Clinical Quality Measures DVT/VTE Risk/Contraindication: Risk Factor Score Per Nursin RFS Level Per Nursing on Admit: 4+=Very High ALBA FARIAS MD July 25, 2018 15:00
[2018-07-26] MEDS: RT-ALBUTEROL/IPRATROPIUM 3 ML (DUONEB) VIAL INH SCH ×6 (02:20→21:11)
[2018-07-26 04:19] VITALS: BP 141/62
[2018-07-26] MEDS: LEVOTHYROXINE 75 MCG (LEVOTHROID) TABLET PO SCH (05:28)
[2018-07-26] MEDS: LEVOTHYROXINE 100 MCG (LEVOTHROID) TAB PO SCH (05:28)
[2018-07-26 05:51] LABS: MEAN PLATELET VOLUME 12.4 FL (7.4-10.4); RED CELL DISTRIBUTION WIDTH 15.7 % (10.0-14.5); WHITE BLOOD COUNT 9.5 10^3/uL (4.3-11.0)
--- NOTE | 2018-07-26 05:54 | Pulmonary Progress Note ---
Subjective Time Seen by a Provider: 05:52 Subjective/Events-last exam No complications pt feels improved. Sepsis Event Evaluation Height, Weight, BMI Height: 6'1.00" Weight: 317lbs. 2.0oz. 143.812025xd; 44.9 BMI Method:Stated Focused Exam Lactate Level 07/24/18 15:47: Lactic Acid Level 1.07 Exam Exam Vital Signs Date Time Temp Pulse Resp B/P (MAP) Pulse Ox O2 Delivery O2 Flow Rate FiO2 07/26/18 04:40 92 21 93 40.00 07/26/18 02:20 74 16 97 40.00 07/26/18 01:00 76 07/26/18 00:12 70 20 95 40.00 07/25/18 23:57 97.8 76 18 134/79 (97) 97 Nasal Cannula 5.00 07/25/18 22:12 70 15 93 40.00 07/25/18 21:00 Nasal Cannula 5.00 07/25/18 19:20 98.7 67 16 106/51 (69) 91 Nasal Cannula 5.00 07/25/18 19:00 72 07/25/18 18:31 90 Nasal Cannula 5.00 07/25/18 16:15 96 Nasal Cannula 5.00 07/25/18 15:20 97.7 68 16 125/58 (80) 92 Nasal Cannula 5.00 07/25/18 14:05 90 Nasal Cannula 5.00 07/25/18 13:00 60 07/25/18 12:00 96 Nasal Cannula 5.00 07/25/18 12:00 97.7 60 20 130/64 (86) 92 Nasal Cannula 5.00 07/25/18 10:22 92 Nasal Cannula 5.00 07/25/18 10:17 97.8 63 20 128/81 (97) 95 Nasal Cannula 5.00 07/25/18 09:00 96 Nasal Cannula 5.00 07/25/18 08:00 96 Nasal Cannula 5.00 07/25/18 08:00 58 122/61 (81) 95 Nasal Cannula 5.00 07/25/18 07:00 60 07/25/18 06:41 92 Nasal Cannula 5.00 I & O 07/26/18 07:00 Intake Total 2630 ml Output Total 1850 ml Balance 780 ml Height & Weight Height: 6'1.00" Weight: 317lbs. 2.0oz. 143.392013ae; 44.9 BMI Method:Stated General Appearance: No Apparent Distress, WD/WN, Obese HEENT: PERRL/EOMI, Pharynx Normal Neck: Non Tender, Supple Respiratory: Lungs Clear, Normal Breath Sounds Cardiovascular: Regular Rate, Rhythm, No Edema, No Murmur Capillary Refill: Greater Than 3 Seconds Gastrointestinal: normal bowel sounds, non tender, soft Extremity: Normal Range of Motion, Non Tender, Pedal Edema (2+ up to knees bilateral) Neurologic/Psychiatric: Alert, Oriented x3 Skin: Warm/Dry, Ecchymosis Results Lab Laboratory Tests 07/24/18 14:26 07/25/18 03:45 Assessment/Plan Assessment/Plan Acute on chronic respiratory failure Morbid obesity with OHS -Pt would benefit from home vent to mask -vent to mask QHS -ABG C02 56 Elevated troponin probably secondary hypoxia -Cardiology is following Chronic systolic/grade 1 diastolic CHF EF 30-35 % -Continue lasix Acute renal failure -Monitor Hyperkalemia -Repeat labs UTI with enterococcus -SHEREEN Berumen DO July 26, 2018 05:54
[2018-07-26 06:02] LABS: CALCIUM 9.6 MG/DL (8.5-10.1); CREATININE SERUM 1.36 MG/DL (0.60-1.30); MAGNESIUM 2.3 MG/DL (1.8-2.4)
[2018-07-26 08:00] VITALS: BP 103/65
[2018-07-26] MEDS ORDERED: cefTRIAXone 1,000 MG IV (ROCEPHIN) VIAL ONE (08:47)
[2018-07-26] MEDS ORDERED: WATER (STERILE) FOR INJECTION 10 ML ONE (08:47)
[2018-07-26] MEDS: PREGABALIN 100 MG (LYRICA) CAPSULE PO SCH ×3 (08:58→21:16)
[2018-07-26] MEDS: APIXABAN 2.5 MG (ELIQUIS) TABLET PO SCH ×2 (08:58→21:15)
[2018-07-26] MEDS: meTOprolol TARTRATE 50 MG (LOPRESSOR) TAB PO SCH ×2 (08:58→21:16)
[2018-07-26] MEDS: FUROSEMIDE 40 MG/4 ML INJ (LASIX) IVP SCH (08:59)
[2018-07-26] MEDS: cefTRIAXone 1,000 MG/SWFI 10 ML IV PUSH IV SCH ×2 (08:59)
--- NOTE | 2018-07-26 08:59 | Progress Note-Cardiology ---
Cardiology SOAP Progress Note Subjective: Feels somewhat better compared to time of admission Gen weakness and exertional shortness of breath persist No cp or palp or syncope Objective: I&O/Vital Signs 07/25/18 07/25/18 07/25/18 07/26/18 21:00 22:12 23:57 00:12 Temp 97.8 Pulse 70 76 70 Resp 15 18 20 B/P (MAP) 134/79 (97) Pulse Ox 93 97 95 O2 Delivery Nasal Cannula Nasal Cannula O2 Flow Rate 5.00 40.00 5.00 40.00 07/26/18 07/26/18 07/26/18 07/26/18 01:00 02:20 04:19 04:40 Temp 97.1 Pulse 76 74 79 92 Resp 16 16 21 B/P (MAP) 141/62 (88) Pulse Ox 97 96 93 O2 Delivery NIV Bilevel O2 Flow Rate 40.00 40.00 07/26/18 07/26/18 07:00 07:03 Pulse 91 Pulse Ox 97 O2 Delivery Nasal Cannula O2 Flow Rate 5.00 07/26/18 00:00 Intake Total 2430 ml Output Total 1200 ml Balance 1230 ml Weight (Pounds): 338 Weight (Ounces): 8.0 Weight (Calculated Kilograms): 153.801708 Constitutional: AAO x 3, well-developed, well-nourished Respiratory: No accessory muscle use, No respiratory distress; chest expansion is symmetric, chest is bilaterally symmetric, lungs clear to auscultation Cardiovascular: regular rate-rhythm; No JVD; S1 and S2, systolic murmur Gastrointestional: No tender; soft, round, audible bowel sounds Extremities: swelling (mod bilat LE swelling) Neurologic/Psychiatric: alert, grossly intact, power is 5/5 both on sides Skin: No rash, No ulcerations; other (excoriations to legs and arms) Results/Procedures: Labs Laboratory Tests 07/26/18 05:35: White Blood Count 9.5, Red Blood Count 4.88, Hemoglobin 17.0, Hematocrit 51, Mean Corpuscular Volume 104H, Mean Corpuscular Hemoglobin 35H, Mean Corpuscular Hemoglobin Concent 33, Red Cell Distribution Width 15.7H, Platelet Count 163, Mean Platelet Volume 12.4H, Sodium Level 138, Potassium Level 5.0, Chloride Level 92L, Carbon Dioxide Level 33H, Anion Gap 13, Blood Urea Nitrogen 60H, Creatinine 1.36H, Estimat Glomerular Filtration Rate 52, BUN/Creatinine Ratio 44, Glucose Level 95, Calcium Level 9.6, Magnesium Level 2.3 Microbiology 07/24/18 Blood Culture - Preliminary, Resulted No growth 07/24/18 Urine Culture - Preliminary, Resulted Enterococcus faecalis Laboratory Tests 07/24/18 14:26 07/25/18 03:45 07/26/18 05:35 A/P: Assessment: Acute on Chronic resp failure (Type II resp failure, likely due to obesity- hypoventilation) Troponin elevation r/t chronic hypoxemia (Type 2 PR) Acute on Chronic systolic CHF, improving Acute renal insufficiency due to intravascular volume depletion, improved with fluids and reduction of diuretics to once a day UTI - management per medical services Hyperkalemia likely d/t renal insuff 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 Last echo of 07/05/18 shows mod conc LVH and LVEF 30-35%; grade 1 alicea dysfunction; mod to sev LA dilatation, mod MAC, AoV sclerosis w/o stenosis; PASP was 60 mmHg Nocturnal and exercise-related hypoxemia, managed by Dr Patrick and Dr Tristan No significant CAD on cath of April [address] Beltran A flutter treated with elec CV in April [address] Beltran. Continuing episodes of A Flutter with a controlled vent response on ILR recordings that was implanted on 07/25/17 Refuses warfarin or Xarelto. Currently taking Eliquis Obesity with BMI approx 45 H/o alcohol abuse, states quit in June 2018 H/o hypothyroidism, treated with thyroid replacement therapy. Diagnosed with iatrogenic hyperthyroidism. Thyroid is being managed by his fam phy Plan: * Complex management due to multiple comorbidities * Treatment of resp failure is by the Med Svce * D/t hyperkalemia hold PRINCESS(-) and aldacton * Continue BB tx * Monitor labs closely MONCHO SHELBY MD FACP FAC CCDS July 26, 2018 08:59
[2018-07-26] MEDS: NS IV 1000 ML 1,000 ML IV SCH ×2 (09:26→21:15)
[2018-07-26 11:39] VITALS: BP 128/71
--- NOTE | 2018-07-26 14:29 | Progress Note (SOAP) ---
Subjective Subjective/Events-last exam No acute events, is feeling a little better. Review of Systems Date Seen by Provider: July 26, 2018 Time Seen by Provider: 10:10 Focused Exam Lactate Level 07/24/18 15:47: Lactic Acid Level 1.07 Objective Exam Last Set of Vital Signs Vital Signs Date Time Temp Pulse Resp B/P (MAP) Pulse Ox O2 Delivery O2 Flow Rate FiO2 07/26/18 13:00 64 07/26/18 11:39 98.6 22 128/71 (90) 91 Nasal Cannula 5.00 07/24/18 18:15 41 Capillary Refill : Greater Than 3 Seconds I&O Intake and Output 07/26/18 00:00 Intake Total 2880 ml Output Total 1200 ml Balance 1680 ml Intake Oral 1880 ml IV Total 1000 ml Output Urine Total 1200 ml # Voids 3 # Bowel Movements 2 General: Alert, No Acute Distress Lungs: Other (rales at bases) Heart: Regular Rate, No Murmurs Neuro: Normal Speech Psych/Mental Status: Mental Status NL Results/Procedures Lab Laboratory Tests 07/26/18 05:35: White Blood Count 9.5, Red Blood Count 4.88, Hemoglobin 17.0, Hematocrit 51, Ashley n Corpuscular Volume 104H, Mean Corpuscular Hemoglobin 35H, Mean Corpuscular Hemoglobin Concent 33, Red Cell Distribution Width 15.7H, Platelet Count 163, Mean Platelet Volume 12.4H, Sodium Level 138, Potassium Level 5.0, Chloride Level 92L, Carbon Dioxide Level 33H, Anion Gap 13, Blood Urea Nitrogen 60H, Creatinine 1.36H, Estimat Glomerular Filtration Rate 52, BUN/Creatinine Ratio 44, Glucose Level 95, Calcium Level 9.6, Magnesium Level 2.3 Microbiology 07/24/18 Blood Culture - Preliminary, Resulted No growth 07/24/18 Urine Culture - Final, Complete Enterococcus faecalis Radiology NAME: OLINDA NICHOLS [facility] REC#: [id number] PT STATUS: REG ER : 1950 PHYSICIAN: BEN PETIT MD ADMIT DATE: 07/24/18/ER Draft Date of Exam:07/24/18 CHEST 1 VIEW, AP/PA ONLY INDICATION: Weakness and shortness of air. TIME OF EXAM: 2:59 p.m. Correlation is made with prior study from 06/14/2013. FINDINGS: Heart appears enlarged. There is no infiltrate or failure. No effusion or pneumothorax is seen. IMPRESSION: No acute cardiopulmonary process is detected. Dictated on workstation # [id number] Dict: 07/24/18 1507 Trans: 07/24/18 1514 KB [id number] Interpreted by: ELADIA CLINTON MD Electronically signed by: Assessment/Plan Assessment/Plan (1) Acute renal insufficiency Status: Acute Assessment & Plan: Suspect secondary to over-diuresis, will be difficult to balance his fluids. Improved this am with some fluid overnight. Has concomitant UTI, treating that as well. 07/26 continues to improve, diuretic management per Cardiology. (2) Hyperkalemia Status: Resolved Assessment & Plan: Secondary to MARIO, holding ACEI. (3) Acute heart failure Status: Acute Assessment & Plan: Cardiology consulted, appreciate recommendations. Acute on chronic systolic heart failure. Last echo of 07/05/18 shows mod conc LVH and LVEF 30-35%; grade 1 alicea dysfunction; mod to sev LA dilatation, mod MAC, AoV sclerosis w/o stenosis; PASP was 60 mmHg. Caution with diuresis given acute renal insufficiency, management per Cardiology. 07/26 clinically improved somewhat, but still requiring 5 lpm supplemental O2 up from 2 lpm at home, continued on daily IV lasix. Qualifiers: Qualified Codes: I50.9 - Heart failure, unspecified (4) Elevated troponin Status: Acute Assessment & Plan: Suspect type II [place], Cardiology managing. (5) Urinary tract infection Status: Acute Assessment & Plan: Culture pending. On ceftriaxone. 07/26 enterococcus, sensitivity pending. Qualifiers: Qualified Codes: N30.00 - Acute cystitis without hematuria (6) Hypothyroidism Status: Chronic Assessment & Plan: Resume home medications. (7) Diabetes mellitus, type 2 Status: Chronic Assessment & Plan: Diet controlled. Qualifiers: (8) Fibromyalgia Status: Chronic Assessment & Plan: Resume home medications. (9) Atrial flutter Status: Chronic Assessment & Plan: On Eliquis, normal heart rate currently. (10) DVT prophylaxis Status: Acute Assessment & Plan: On Eliquis Clinical Quality Measures DVT/VTE Risk/Contraindication: Risk Factor Score Per Nursin RFS Level Per Nursing on Admit: 4+=Very High ALBA FARIAS MD July 26, 2018 14:29
[2018-07-26 16:15] VITALS: BP 120/71
[2018-07-26 19:51] VITALS: BP 116/67
[2018-07-27] VITALS (9 sets, daily range): BP systolic 105–149; BP diastolic 65–86
[2018-07-27] MEDS: RT-ALBUTEROL/IPRATROPIUM 3 ML (DUONEB) VIAL INH SCH ×6 (02:38→22:16)
[2018-07-27 05:13] LABS: HEMOGLOBIN 16.7 G/DL (13.3-17.7); RED CELL DISTRIBUTION WIDTH 15.9 % (10.0-14.5); WHITE BLOOD COUNT 8.9 10^3/uL (4.3-11.0)
[2018-07-27 05:30] LABS: BUN/CREATININE RATIO 37; CALCIUM 10.3 MG/DL (8.5-10.1); CARBON DIOXIDE 36 MMOL/L (21-32); CHLORIDE 94 MMOL/L (98-107); CREATININE SERUM 1.15 MG/DL (0.60-1.30); GFR ESTIMATED > 60; GLUCOSE 86 MG/DL (70-105); POTASSIUM 4.2 MMOL/L (3.6-5.0); SODIUM 140 MMOL/L (135-145)
--- NOTE | 2018-07-27 06:06 | Pulmonary Progress Note ---
Subjective Time Seen by a Provider: 06:05 Sepsis Event Evaluation Height, Weight, BMI Height: 6'." Weight: 338lbs. 8.0oz. 153.639508om; 44.9 BMI Method:Stated Focused Exam Lactate Level 07/24/18 15:47: Lactic Acid Level 1.07 Exam Exam Vital Signs Date Time Temp Pulse Resp B/P (MAP) Pulse Ox O2 Delivery O2 Flow Rate FiO2 07/27/18 04:00 98.1 66 20 149/86 (107) 91 Nasal Cannula 5.00 07/27/18 02:45 94 Nasal Cannula 5.00 07/27/18 02:38 79 Room Air 07/27/18 01:00 67 07/27/18 00:02 98.4 67 18 143/80 (101) 96 Nasal Cannula 5.00 07/26/18 21:12 92 Nasal Cannula 5.00 07/26/18 21:00 Nasal Cannula 5.00 07/26/18 19:51 98.5 71 20 116/67 (83) 93 Nasal Cannula 5.00 07/26/18 19:00 74 07/26/18 18:33 94 Nasal Cannula 5.00 07/26/18 16:15 98.0 71 20 120/71 (87) 91 Nasal Cannula 5.00 07/26/18 14:43 96 Nasal Cannula 5.00 07/26/18 13:00 64 07/26/18 11:39 98.6 63 22 128/71 (90) 91 Nasal Cannula 5.00 07/26/18 11:12 95 Nasal Cannula 5.00 07/26/18 09:00 Nasal Cannula 5.00 07/26/18 08:00 98.5 89 20 103/65 (78) 96 Nasal Cannula 5.00 07/26/18 07:03 97 Nasal Cannula 5.00 07/26/18 07:00 91 I & O 07/27/18 07:00 Intake Total 2330 ml Output Total 2525 ml Balance -195 ml Height & Weight Height: 6'.00" Weight: 338lbs. 8.0oz. 153.611009tw; 44.9 BMI Method:Stated General Appearance: No Apparent Distress, WD/WN, Obese HEENT: PERRL/EOMI, Pharynx Normal Neck: Non Tender, Supple Respiratory: Lungs Clear, Normal Breath Sounds Cardiovascular: Regular Rate, Rhythm, No Edema, No Murmur Capillary Refill: Greater Than 3 Seconds Gastrointestinal: normal bowel sounds, non tender, soft Extremity: Normal Range of Motion, Non Tender, Pedal Edema (2+ up to knees bilateral) Neurologic/Psychiatric: Alert, Oriented x3 Skin: Warm/Dry, Ecchymosis Results Lab Laboratory Tests 07/26/18 05:35 07/27/18 05:05 Assessment/Plan Assessment/Plan Acute on chronic respiratory failure -Pt is still requiring 5 liters NC secondary to hypoxia -He is getting both IVF and Lasix currently. -D/C IVF -Repeat BNP -Check CT of chest without contrast Morbid obesity with OHS -Pt would benefit from home vent to mask -vent to mask QHS -ABG C02 56 Elevated troponin probably secondary hypoxia -Cardiology is following Chronic systolic/grade 1 diastolic CHF EF 30-35 % - lasix Acute renal failure -Monitor UTI with enterococcus -SHEREEN Berumen DO July 27, 2018 06:06
[2018-07-27] MEDS: LEVOTHYROXINE 75 MCG (LEVOTHROID) TABLET PO SCH (06:11)
[2018-07-27] MEDS: LEVOTHYROXINE 100 MCG (LEVOTHROID) TAB PO SCH (06:11)
--- NOTE | 2018-07-27 06:15 | NUR ---
patient left unit with radiology for CT of abdomen and pelvis
--- NOTE | 2018-07-27 06:50 | NUR ---
Patient returned to room. is in stable condition.
[2018-07-27] MEDS ORDERED: cefTRIAXone 1,000 MG IV (ROCEPHIN) VIAL ONE (08:39)
[2018-07-27] MEDS ORDERED: WATER (STERILE) FOR INJECTION 10 ML ONE (08:39)
[2018-07-27] MEDS: FUROSEMIDE 40 MG/4 ML INJ (LASIX) IVP SCH (09:01)
[2018-07-27] MEDS: meTOprolol TARTRATE 50 MG (LOPRESSOR) TAB PO SCH ×2 (09:02→21:13)
[2018-07-27] MEDS: PREGABALIN 100 MG (LYRICA) CAPSULE PO SCH ×3 (09:02→21:13)
[2018-07-27] MEDS: APIXABAN 2.5 MG (ELIQUIS) TABLET PO SCH ×2 (09:02→21:13)
[2018-07-27] MEDS: cefTRIAXone 1,000 MG/SWFI 10 ML IV PUSH IV SCH ×2 (09:02)
--- NOTE | 2018-07-27 09:30 | Progress Note-Cardiology ---
Cardiology SOAP Progress Note Subjective: Sitting up in a chair at the bedside. He feels his breathing has improved. He feels LE swelling has improved. No c/o CP or palpitations. Objective: I&O/Vital Signs 07/27/18 07/27/18 07/27/18 07/27/18 00:02 01:00 02:38 02:45 Temp 98.4 Pulse 67 67 Resp 18 B/P (MAP) 143/80 (101) Pulse Ox 96 79 94 O2 Delivery Nasal Cannula Room Air Nasal Cannula O2 Flow Rate 5.00 5.00 07/27/18 07/27/18 07/27/18 07/27/18 04:00 06:58 07:00 08:00 Temp 98.1 97.8 Pulse 66 65 73 Resp 20 20 B/P (MAP) 149/86 (107) 105/68 (80) Pulse Ox 91 94 93 O2 Delivery Nasal Cannula Nasal Cannula Nasal Cannula O2 Flow Rate 5.00 5.00 5.00 07/27/18 07/27/18 09:00 11:22 Pulse Ox 93 91 O2 Delivery Nasal Cannula Nasal Cannula O2 Flow Rate 5.00 5.00 07/27/18 00:00 Intake Total 3330 ml Output Total 2525 ml Balance 805 ml Weight (Pounds): 328 Weight (Ounces): 8.0 Weight (Calculated Kilograms): 149.037188 Constitutional: AAO x 3, well-developed, well-nourished Respiratory: No accessory muscle use, No respiratory distress; chest expansion is symmetric, chest is bilaterally symmetric, lungs clear to auscultation, other (diminished bases bilat) Cardiovascular: regular rate-rhythm; No JVD; S1 and S2, systolic murmur Gastrointestional: No tender; soft, round, audible bowel sounds Extremities: swelling (mild to mod bilat LE swelling) Neurologic/Psychiatric: alert, grossly intact, power is 5/5 both on sides Skin: No rash, No ulcerations; other (excoriations to legs and arms) Results/Procedures: Labs Laboratory Tests 07/27/18 05:05: White Blood Count 8.9, Red Blood Count 4.95, Hemoglobin 16.7, Hematocrit 53, Mean Corpuscular Volume 107H, Mean Corpuscular Hemoglobin 34, Mean Corpuscular Hemoglobin Concent 32, Red Cell Distribution Width 15.9H, Platelet Count 187, Mean Platelet Volume 12.0H, Sodium Level 140, Potassium Level 4.2, Chloride Level 94L, Carbon Dioxide Level 36H, Anion Gap 10, Blood Urea Nitrogen 43H, Creatinine 1.15, Estimat Glomerular Filtration Rate > 60, BUN/Creatinine Ratio 37, Glucose Level 86, Calcium Level 10.3H, B-Type Natriuretic Peptide 149.9H Microbiology 07/24/18 Blood Culture - Preliminary, Resulted No growth 07/24/18 Urine Culture - Final, Complete Enterococcus faecalis A/P: Assessment: Acute on Chronic resp failure (Type II resp failure, likely due to obesity- hypoventilation) Troponin elevation r/t chronic hypoxemia (Type 2 VT) Acute on Chronic systolic CHF, improving Acute renal insufficiency due to intravascular volume depletion, improved with fluids and with reduction of diuretics to once a day UTI - management per medical services Hyperkalemia likely d/t renal insuff - resolved 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 Last echo of 07/05/18 shows mod conc LVH and LVEF 30-35%; grade 1 alicea dysfunction; mod to sev LA dilatation, mod MAC, AoV sclerosis w/o stenosis; PASP was 60 mmHg Nocturnal and exercise-related hypoxemia, managed by Dr Patrick and Dr Tristan No significant CAD on cath of April [address] Beltran A flutter treated with elec CV in April [address] Beltran. Continuing episodes of A Flutter with a controlled vent response on ILR recordings that was implanted on 07/25/17 Refuses warfarin or Xarelto. Currently taking Eliquis Obesity with BMI approx 45 H/o alcohol abuse, states quit in June 2018 H/o hypothyroidism, treated with thyroid replacement therapy. Diagnosed with iatrogenic hyperthyroidism. Thyroid is being managed by his [facility] phy Plan: * Complex management due to multiple comorbidities * Treatment of resp failure is by the Med Svce * D/t hyperkalemia hold PRINCESS(-) and aldactone * Continue BB tx * Renal function improved - stop IVF * Change Lasix to oral * CT of the chest/abdomen pending * Monitor labs closely Physician Assessment Physician Assessment No cp or palp or syncope Gen malaise and weakness and shortness of breath at their usual baseline now Lungs: clear Cor: reg Ext: no c/c/. Mod bilat leg swelling A&R * As documented in our note above that I updated (italics) and as noted below * I spoke with him and his and explained the CV treatments undertaken during this hosp and their rationale * We are switching to once-a-day oral diuretics * Close outpt f/u is advised KENDRA MARIE [employer]ATING MACHINE MECH[employer]IC July 27, 2018 09:30 MONCHO SHELBY MD FACP FAC CCDS July 27, 2018 11:52
--- NOTE | 2018-07-27 10:52 | Diagnostic Imaging Report ---
PROCEDURE: CT chest without contrast. TECHNIQUE: Multiple contiguous axial images were obtained through the chest without the use of intravenous contrast. Auto Exposure Controls were utilized during the CT exam to meet ALARA standards for radiation dose reduction. INDICATION: Hypoxia, shortness of breath COMPARISON: There are no prior CT chest examinations available for comparison. The plain film examination of the chest performed on 07/25/2018 noted cardiomegaly but failed to show any sign of an acute cardiopulmonary abnormality. FINDINGS: On this exam, the heart is enlarged and similar in size to the prior study. There are extensive coronary artery calcifications evident. The aorta is not abnormally dilated. There is no obvious mediastinal or hilar adenopathy. The thyroid gland where visualized is unremarkable. There are mild alveolar/interstitial infiltrates involving both lung bases. These have developed in the interval since the prior exam. These findings may be related to mild pneumonia/atelectasis. There is no pleural effusion identified. The upper lungs are clear. The sections through the upper abdomen fail to show any sign of an acute abnormality. The bone windows show no evidence for a fracture or for a destructive lesion. IMPRESSION: There is cardiomegaly and coronary artery disease. There is also mild atelectasis/infiltrate involving both lung bases. There is no acute cardiopulmonary abnormality noted otherwise. Dictated by: Dictated on workstation # [id number]
--- NOTE | 2018-07-27 17:00 | Progress Note (SOAP) ---
Subjective Subjective/Events-last exam Afebrile, no acute events, feeling pretty near baseline. Review of Systems Date Seen by Provider: July 27, 2018 Time Seen by Provider: 13:25 Objective Exam Last Set of Vital Signs Vital Signs Date Time Temp Pulse Resp B/P (MAP) Pulse Ox O2 Delivery O2 Flow Rate FiO2 07/27/18 14:37 92 Nasal Cannula 5.00 07/27/18 12:53 62 07/27/18 11:45 98.7 20 105/65 (78) 07/24/18 18:15 41 Capillary Refill : Greater Than 3 Seconds I&O Intake and Output 07/27/18 00:00 Intake Total 3530 ml Output Total 3175 ml Balance 355 ml Intake Oral 2530 ml IV Total 1000 ml Output Urine Total 3175 ml # Bowel Movements 2 General: Alert, No Acute Distress Lungs: Clear to Auscultation, Other (decreased air movement) Heart: Regular Rate, No Murmurs Abdomen: Normal Bowel Sounds, Soft Extremities: Other (1+ edema) Neuro: Normal Speech Psych/Mental Status: Mental Status NL Results/Procedures Lab Laboratory Tests 07/27/18 05:05: White Blood Count 8.9, Red Blood Count 4.95, Hemoglobin 16.7, Hematocrit 53, Mean Corpuscular Volume 107H, Mean Corpuscular Hemoglobin 34, Mean Corpuscular Hemoglobin Concent 32, Red Cell Distribution Width 15.9H, Platelet Count 187, Mean Platelet Volume 12.0H, Sodium Level 140, Potassium Level 4.2, Chloride Level 94L, Carbon Dioxide Level 36H, Anion Gap 10, Blood Urea Nitrogen 43H, Creatinine 1.15, Estimat Glomerular Filtration Rate > 60, BUN/Creatinine Ratio 37, Glucose Level 86, Calcium Level 10.3H, B-Type Natriuretic Peptide 149.9H Microbiology 07/24/18 Blood Culture - Preliminary, Resulted No growth 07/24/18 Urine Culture - Final, Complete Enterococcus faecalis Radiology NAME: OLINDA NICHOLS [facility] REC#: [id number] PT STATUS: REG ER : 1950 PHYSICIAN: BEN PETIT MD ADMIT DATE: 07/24/18/ER Draft Date of Exam:07/24/18 CHEST 1 VIEW, AP/PA ONLY INDICATION: Weakness and shortness of air. TIME OF EXAM: 2:59 p.m. Correlation is made with prior study from 06/14/2013. FINDINGS: Heart appears enlarged. There is no infiltrate or failure. No effusion or pneumothorax is seen. IMPRESSION: No acute cardiopulmonary process is detected. Dictated on workstation # [id number] Dict: 07/24/18 1507 Trans: 07/24/18 1514 KB [id number] Interpreted by: ELADIA CLINTON MD Electronically signed by: Assessment/Plan Assessment/Plan (1) Acute renal insufficiency Status: Resolved Assessment & Plan: Suspect secondary to over-diuresis, will be difficult to balance his fluids. Improved this am with some fluid overnight. Has concomitant UTI, treating that as well. 07/26 continues to improve, diuretic management per Cardiology. (2) Hyperkalemia Status: Resolved Assessment & Plan: Secondary to MARIO, holding ACEI. (3) Acute heart failure Status: Acute Assessment & Plan: Cardiology consulted, appreciate recommendations. Acute on chronic systolic heart failure. Last echo of 07/05/18 shows mod conc LVH and LVEF 30-35%; grade 1 alicea dysfunction; mod to sev LA dilatation, mod MAC, AoV sclerosis w/o stenosis; PASP was 60 mmHg. Caution with diuresis given acute bessy al insufficiency, management per Cardiology. 07/26 clinically improved somewhat, but still requiring 5 lpm supplemental O2 up from 2 lpm at home, continued on daily IV lasix. 07/27 changed to PO lasix per Cardiology Qualifiers: Qualified Codes: I50.9 - Heart failure, unspecified (4) Elevated troponin Status: Acute Assessment & Plan: Suspect type II [place], Cardiology managing. (5) Urinary tract infection Status: Acute Assessment & Plan: Culture pending. On ceftriaxone. 07/26 enterococcus, sensitivity pending. 07/27- sensitive to ampicillin, will change to oral amoxicillin Qualifiers: Qualified Codes: N30.00 - Acute cystitis without hematuria (6) Hypothyroidism Status: Chronic Assessment & Plan: Resume home medications. (7) Diabetes mellitus, type 2 Status: Chronic Assessment & Plan: Diet controlled. Qualifiers: (8) Fibromyalgia Status: Chronic Assessment & Plan: Resume home medications. (9) Atrial flutter Status: Chronic Assessment & Plan: On Eliquis, normal heart rate currently. (10) DVT prophylaxis Status: Acute Assessment & Plan: On Eliquis Clinical Quality Measures DVT/VTE Risk/Contraindication: Risk Factor Score Per Nursin RFS Level Per Nursing on Admit: 4+=Very High ALBA FARIAS MD July 27, 2018 17:00
[2018-07-27] MEDS: AMOXICILLIN 500 MG (POLYMOX) CAP PO SCH (21:14)
[2018-07-28] MEDS: RT-ALBUTEROL/IPRATROPIUM 3 ML (DUONEB) VIAL INH SCH ×6 (01:52→22:33)
[2018-07-28 04:34] VITALS: BP 152/85
[2018-07-28 04:58] LABS: BUN/CREATININE RATIO 33; CALCIUM 9.8 MG/DL (8.5-10.1); CARBON DIOXIDE 35 MMOL/L (21-32); CHLORIDE 96 MMOL/L (98-107); CREATININE SERUM 1.02 MG/DL (0.60-1.30); GFR ESTIMATED > 60; GLUCOSE 96 MG/DL (70-105); POTASSIUM 4.2 MMOL/L (3.6-5.0); SODIUM 140 MMOL/L (135-145)
[2018-07-28] MEDS: LEVOTHYROXINE 75 MCG (LEVOTHROID) TABLET PO SCH (05:51)
[2018-07-28] MEDS: LEVOTHYROXINE 100 MCG (LEVOTHROID) TAB PO SCH (05:51)
[2018-07-28 07:10] VITALS: BP 147/91
--- NOTE | 2018-07-28 07:22 | Pulmonary Progress Note ---
Subjective Time Seen by a Provider: 07:21 Subjective/Events-last exam PT appears to be doing better Sepsis Event Evaluation Height, Weight, BMI Height: 6'" Weight: 341lbs. 1.6oz. 154.776578km; 44.9 BMI Method:Stated Exam Exam Vital Signs Date Time Temp Pulse Resp B/P (MAP) Pulse Ox O2 Delivery O2 Flow Rate FiO2 07/28/18 06:37 93 Nasal Cannula 4.00 07/28/18 04:34 98.3 65 22 152/85 (107) 93 Nasal Cannula 4.00 07/28/18 01:53 93 Nasal Cannula 4.00 07/28/18 01:00 64 07/27/18 23:18 98.4 69 22 147/71 (96) 93 Nasal Cannula 4.00 07/27/18 22:17 91 Nasal Cannula 4.00 07/27/18 21:53 62 95 45 07/27/18 21:00 Nasal Cannula 5.00 07/27/18 19:42 97.3 63 20 124/70 (88) 95 Nasal Cannula 4.00 07/27/18 19:00 65 07/27/18 18:34 95 Nasal Cannula 5.00 07/27/18 16:14 98.2 63 22 135/70 (91) 93 Nasal Cannula 5.00 07/27/18 14:37 92 Nasal Cannula 5.00 07/27/18 12:53 62 07/27/18 12:03 62 92 07/27/18 11:45 98.7 62 20 105/65 (78) 92 Nasal Cannula 5.00 07/27/18 11:22 91 Nasal Cannula 5.00 07/27/18 09:00 93 Nasal Cannula 5.00 07/27/18 08:00 97.8 73 20 105/68 (80) 93 Nasal Cannula 5.00 I & O 07/28/18 07:00 Intake Total 2120 ml Output Total 2685 ml Balance -565 ml Height & Weight Height: 6'" Weight: 341lbs. 1.6oz. 154.967764zw; 44.9 BMI Method:Stated General Appearance: No Apparent Distress, WD/WN, Obese HEENT: PERRL/EOMI, Pharynx Normal Neck: Non Tender, Supple Respiratory: Lungs Clear, Normal Breath Sounds Cardiovascular: Regular Rate, Rhythm, No Edema, No Murmur Capillary Refill: Greater Than 3 Seconds Gastrointestinal: normal bowel sounds, non tender, soft Extremity: Normal Range of Motion, Non Tender, Pedal Edema (2+ up to knees bilateral) Neurologic/Psychiatric: Alert, Oriented x3 Skin: Warm/Dry, Ecchymosis Results Lab Laboratory Tests 07/27/18 05:05 07/28/18 04:11 Assessment/Plan Assessment/Plan Acute on chronic respiratory failure - improving -Lasix -D/C IVF -Check CT of chest without contrast Morbid obesity with OHS -Pt would benefit from home vent to mask -vent to mask QHS -ABG C02 56 Atelectasis Elevated troponin probably secondary hypoxia -Cardiology is following Chronic systolic/grade 1 diastolic CHF EF 30-35 % - lasix Acute renal failure -Monitor UTI with enterococcus SHEREEN FORREST DO Jul 28, 2018 07:22
[2018-07-28] MEDS: APIXABAN 2.5 MG (ELIQUIS) TABLET PO SCH ×2 (08:34→20:15)
[2018-07-28] MEDS: AMOXICILLIN 500 MG (POLYMOX) CAP PO SCH ×3 (08:34→20:15)
[2018-07-28] MEDS: FUROSEMIDE 40 MG (LASIX) TAB PO SCH (08:35)
[2018-07-28] MEDS: meTOprolol TARTRATE 50 MG (LOPRESSOR) TAB PO SCH ×2 (08:35→20:15)
[2018-07-28] MEDS: PREGABALIN 100 MG (LYRICA) CAPSULE PO SCH ×3 (08:35→20:15)
[2018-07-28 11:05] VITALS: BP 124/83
--- NOTE | 2018-07-28 12:03 | Physical Therapy Evaluation ---
PT Evaluation-General Medical Diagnosis Admission Date July 24, 2018 at 16:03 Medical Diagnosis: Acute on chronic respiratory failure with CHF and acute renal insufficiency Onset Date: July 24, 2018 Therapy Diagnosis Therapy Diagnosis: Decreased functional mobility Height/Weight Height (Feet): 6 Height (Inches): 1.00 Weight (Pounds): 341 Weight (Ounces): 1.6 Precautions Precautions/Isolations: Fall Prevention, Standard Precautions Weight Bear Status Right Lower Extremity: Right Full Weight Bearing Left Lower Extremity: Left Full Weight Bearing Referral Physician: Tashi Reason for Referral: Evaluation/Treatment Medical History Pertinent Medical History: Atrial Fib, DM, Heart Failure, HTN Additional Medical History fibromyalgia, (R) arm Sx Current History Pt presented to ED with worsening SOB. Reviewed History: Yes Social History Home: Single Level Current Living Status: Spouse Entry Into Home: Level Entry Prior/Core FIM Prior Level of Function Therapy Code Descriptions/Definitions Functional [place] Measure: 0=Not Assessed/NA 4=Minimal Assistance 1=Total Assistance 5=Supervision or Setup 2=Maximal Assistance 6=Modified [place] 3=Moderate Assistance 7=Complete [place] Therapy Quality Codes: 6 Independent with activity with or without an assistive device 5 Patient requires set up or clean up by helper. Patient completes activity by themselves 4 Supervision or touching assist (CGA). [place] provide cues , steadying assist 3 The helper provides less than half the effort to complete the activity 2 The helper provides more than half the effort to complete the activity 1 Dependent. The helper does all the effort to complete an activity 7 Patient refused to complete or attempt activity 9 The patient did not perform the activity before the current illness or injury 88 Not attempted due to Medical conditions or safety concerns Functional Abilities and Goals: Independent: Patient completed the activities by him/herself, with or without an assistive device, with no assistance from a helper. Needed Some Help: Patient needed partial assistance from another person to complete activities. Dependent: A helper completed the activities for the patient. Unknown: Not Applicable: Bed Mobility: 6 Transfers (B,C,W/C) (FIM): 6 Gait: 5 Indoor Mobility (Ambulation): Independent Stairs: Independent Prior Devices Use: Motorized wheelchair, Walker, Other-see list below Pt reports that prior to roughly 2 weeks ago he was (I) with household distance ambulation. For about 2 weeks he has been utilizing a walker due to 2 falls and general weakness in his legs. States he also has a motorized H for community mobility PRN. On home O2 with concentrator. PT Evaluation-Current Subjective Pt sitting EOB, feeling "much better". States he has been up ad diana to BR in room with extended O2 tubing. Objective Patient Orientation: Person, Place, Time, Situation Problem Solving: Good Attachments: Oxygen ROM/Strength ROM Upper Extremities WFL for mobility ROM Lower Extremities WFL for mobility Strength Upper Extremities WFL for mobility Strength Lower Extremities Grossly 3+/5 Integumentary/Posture Integumentary See nurses' notes Posture Kyphotic Neuromuscular (Tone, Coordination, Reflexes) Grossly intact Sensory Vision: Functional Hearing: Functional Transfers Therapy Code Descriptions/Definitions Functional [place] Measure: 0=Not Assessed/NA 4=Minimal Assistance 1=Total Assistance 5=Supervision or Setup 2=Maximal Assistance 6=Modified [place] 3=Moderate Assistance 7=Complete [place] Sit to/from Stand: 5 Gait Mode of Locomotion: Walk Anticipated Mode of Locomotion: Walk Gait (FIM): 5 Distance (FIM): 3=150 ft Distance: 200 Gait Level of Assist: 5 Gait Persons Needed: 1 Gait Assistive Device: FWW Comments/Gait Description Assist with O2 tank, SBA for safety. Pt ambulated with moderate pace, safe gait. O2 at 93% on 2L after ambulation. Balance Sitting Static: Normal Sitting Dynamic: Normal Standing Static: Good Standing Dynamic: Fair Assessment/Needs Pt would benefit from short term skilled PT to improve functional strength and functional activity tolerance to allow safe return home with spouse. Rehab Potential: Good PT Shelter Goals Shelter Goals PT Settlement Processor Goals Time Frame: Aug 04, 2018 Transfers (B,C,W/C) (FIM): 6 Gait (FIM): 6 Gait distance (FIM): 3=150 ft Distance: 150 Gait Level of Assist: 6 Gait Assistive Device: FWW Stairs (FIM): 2 # of Steps: 4 Stairs Level Of Assist: 5 LTGs established to allow safe return home with family. PT Plan Problem List Problem List: Activity Tolerance, Functional Strength, Safety, Balance, Gait, Transfer Treatment/Plan Treatment Plan: Continue Plan of Care Treatment Plan: Education, Functional Activity [place], Functional Strength, Gait, Safety, Therapeutic Exercise, Transfers Treatment Duration: Aug 04, 2018 Frequency: 6 times per week Estimated Hrs Per Day: .25 hour per day Patient and/or Family Agrees t: Yes Safety Risks/Education Teaching Recipient: Patient Teaching Methods: Discussion Response to Teaching: Verbalize Understanding PT POC Discharge Recommendations Therapy D/C Recommendations: Home w/ Family Support, Physical Therapy Home Care Time/GCodes Time In: 1008 Time Out: 1031 Total Billed Treatment Time: 23 Total Billed Treatment 1, EVLOWC x 23' G Codes Necessary: AMANUEL Jaime DPT Jul 28, 2018 12:02
--- NOTE | 2018-07-28 12:53 | Progress Note-Cardiology ---
Cardiology SOAP Progress Note Subjective: Generally feels better compared to time of admission Shortness of breath and leg swelling back to usual baseline Malaise improved No cp or palp or syncope Objective: I&O/Vital Signs 07/28/18 07/28/18 07/28/18 07/28/18 01:00 01:53 04:34 06:37 Temp 98.3 Pulse 64 65 Resp 22 B/P (MAP) 152/85 (107) Pulse Ox 93 93 93 O2 Delivery Nasal Cannula Nasal Cannula Nasal Cannula O2 Flow Rate 4.00 4.00 4.00 07/28/18 07/28/18 07/28/18 07/28/18 07:00 07:10 09:00 10:03 Temp 96.0 Pulse 65 66 Resp 20 B/P (MAP) 147/91 (109) Pulse Ox 93 92 O2 Delivery Nasal Cannula Nasal Cannula Room Air O2 Flow Rate 4.00 4.00 07/28/18 07/28/18 11:05 12:44 Temp 97.7 Pulse 57 68 Resp 20 B/P (MAP) 124/83 (97) Pulse Ox 95 O2 Delivery Nasal Cannula O2 Flow Rate 2.00 07/28/18 00:00 Intake Total 1710 ml Output Total 2360 ml Balance -650 ml Weight (Pounds): 341 Weight (Ounces): 1.6 Weight (Calculated Kilograms): 154.499680 Constitutional: AAO x 3, well-developed, well-nourished Respiratory: No accessory muscle use, No respiratory distress; chest expansion is symmetric, chest is bilaterally symmetric, lungs clear to auscultation, other (diminished bases bilat) Cardiovascular: regular rate-rhythm; No JVD; S1 and S2, systolic murmur Gastrointestional: No tender; soft, round, audible bowel sounds Extremities: swelling (mild to mod bilat LE swelling) Neurologic/Psychiatric: alert, grossly intact, power is 5/5 both on sides Skin: No rash, No ulcerations; other (excoriations to legs and arms) Results/Procedures: Labs Laboratory Tests 07/28/18 04:11: Sodium Level 140, Potassium Level 4.2, Chloride Level 96L, Carbon Dioxide Level 35H, Anion Gap 9, Blood Urea Nitrogen 34H, Creatinine 1.02, Estimat Glomerular Filtration Rate > 60, BUN/Creatinine Ratio 33, Glucose Level 96, Calcium Level 9.8, Magnesium Level 2.0 Microbiology 07/24/18 Blood Culture - Preliminary, Resulted No growth 07/24/18 Urine Culture - Final, Complete Enterococcus faecalis Laboratory Tests 07/27/18 05:05 07/28/18 04:11 A/P: Assessment: Acute on Chronic resp failure (Type II resp failure, likely due to obesity-hypoventilation) Troponin elevation r/t chronic hypoxemia (Type 2 [place]) Acute on Chronic systolic CHF, improving MARIO-3 due to intravascular volume depletion, improved with fluids and with reduction of diuretics to once a day UTI - management per medical services Hyperkalemia likely d/t renal insuff - resolved 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 Last echo of 07/05/18 shows mod conc LVH and LVEF 30-35%; grade 1 alicea dysfunction; mod to sev LA dilatation, mod MAC, AoV sclerosis w/o stenosis; PASP was 60 mmHg Nocturnal and exercise-related hypoxemia, managed by Dr Patrick and Dr Tristan No significant CAD on cath of April [address] Beltran A flutter treated with elec CV in [place] [address] Beltran. Continuing episodes of A Flutter with a controlled vent response on ILR recordings that was implanted on 07/25/17 Refuses warfarin or Xarelto. Currently taking Eliquis Obesity with BMI approx 45 H/o alcohol abuse, states quit in June 2018 H/o hypothyroidism, treated with thyroid replacement therapy. Diagnosed with i atrogenic hyperthyroidism. Thyroid is being managed by his fam phy Plan: * Complex management due to multiple comorbidities * Treatment of resp failure is by the Med Svce * Continue current regimen * Monitor labs closely * Outpt f/u advised MONCHO SHELBY MD FACP FAC CCDS Jul 28, 2018 12:53
[2018-07-28] MEDS: POLYETHYLENE GLYCOL 17 GM (MIRALAX) PACK PO SCH ×2 (14:10→20:15)
[2018-07-28 15:31] VITALS: BP 138/87
--- NOTE | 2018-07-28 17:42 | Progress Note (SOAP) ---
Subjective Subjective/Events-last exam States that he feels much better and wishes to go home tomorrow. He has been up walking with walker. Using oxygen as needed. Shortness of breath with activity but states that it is much better then it was. Review of Systems Date Seen by Provider: Jul 28, 2018 Time Seen by Provider: 11:00 Pulmonary: Dyspnea, Cough Cardiovascular: Orthopnea; No: Chest Pain, Palpitations Gastrointestinal: No: Nausea, Vomiting, Abdominal Pain Musculoskeletal: leg pain Neurological: Weakness; No: Confusion Objective Exam Last Set of Vital Signs Vital Signs Date Time Temp Pulse Resp B/P (MAP) Pulse Ox O2 Delivery O2 Flow Rate FiO2 07/28/18 15:31 98.2 68 16 138/87 (104) 94 Nasal Cannula 2.00 07/27/18 21:53 45 Capillary Refill : Greater Than 3 Seconds I&O Intake and Output 07/28/18 00:00 Intake Total 2920 ml Output Total 3035 ml Balance -115 ml Intake Oral 820 ml IV Total 1010 ml Other 1090 ml Output Urine Total 3035 ml General: Alert, Oriented X3, Cooperative, No Acute Distress, Other (morbidly obese) Lungs: Other (diminished breath sounds, no wheezing or crackles) Heart: Regular Rate, No Murmurs Abdomen: Normal Bowel Sounds, Soft, No Tenderness, No Masses Extremities: Other (2+ pitting edema with chronic venous statis signs) Psych/Mental Status: Mental Status NL, Mood NL Results/Procedures Lab Laboratory Tests 07/28/18 04:11: Sodium Level 140, Potassium Level 4.2, Chloride Level 96L, Carbon Dioxide Level 35H, Anion Gap 9, Blood Urea Nitrogen 34H, Creatinine 1.02, Estimat Glomerular Filtration Rate > 60, BUN/Creatinine Ratio 33, Glucose Level 96, Calcium Level 9.8, Magnesium Level 2.0 Microbiology 07/24/18 Blood Culture - Preliminary, Resulted No growth 07/24/18 Urine Culture - Final, Complete Enterococcus faecalis Radiology NAME: OLINDA NICHOLS [facility] REC#: [id number] PT STATUS: REG ER : 1950 PHYSICIAN: BEN PETIT MD ADMIT DATE: 07/24/18/ER Draft Date of Exam:07/24/18 CHEST 1 VIEW, AP/PA ONLY INDICATION: Weakness and shortness of air. TIME OF EXAM: 2:59 p.m. Correlation is made with prior study from 06/14/2013. FINDINGS: Heart appears enlarged. There is no infiltrate or failure. No effusion or pneumothorax is seen. IMPRESSION: No acute cardiopulmonary process is detected. Dictated on workstation # [id number] Dict: 07/24/18 1507 Trans: 07/24/18 1514 KB [id number] Interpreted by: ELADIA CLINTON MD Electronically signed by: Assessment/Plan Assessment/Plan (1) Acute renal insufficiency Status: Resolved Assessment & Plan: Suspect secondary to over-diuresis, will be difficult to balance his fluids. Improved this am with some fluid overnight. Has concomitant UTI, treating that as well. 07/26 continues to improve, diuretic management per Cardiology. 07/28: Much improved, will continue to monitor, if stable tomorrow likely home (2) Hyperkalemia Status: Resolved Assessment & Plan: Secondary to MARIO, holding ACEI. (3) Acute heart failure Status: Acute Assessment & Plan: Cardiology consulted, appreciate recommendations. Acute on chronic systolic heart failure. Last echo of 07/05/18 shows mod conc LVH and LVEF 30-35%; grade 1 alicea dysfunction; mod to sev LA dilatation, mod MAC, AoV sclerosis w/o stenosis; PASP was 60 mmHg. Caution with diuresis given acute renal insufficiency, management per Cardiology. 07/26 clinically improved somewhat, but still requiring 5 lpm supplemental O2 up from 2 lpm at home, continued on daily IV lasix. 07/27 changed to PO lasix per Cardiology Qualifiers: Qualified Codes: I50.9 - Heart failure, unspecified (4) Elevated troponin Status: Acute Assessment & Plan: Suspect type II [place], Cardiology managing. (5) Urinary tract infection Status: Acute Assessment & Plan: Culture pending. On ceftriaxone. 07/26 enterococcus, sensitivity pending. 07/27- sensitive to ampicillin, will change to oral amoxicillin 07/28: Will complete 7 days of treatment for complicated UTI Qualifiers: Qualified Codes: N30.00 - Acute cystitis without hematuria (6) Hypothyroidism Status: Chronic Assessment & Plan: Resume home medications. (7) Diabetes mellitus, type 2 Status: Chronic Assessment & Plan: Diet controlled. Qualifiers: (8) Fibromyalgia Status: Chronic Assessment & Plan: Resume home medications. (9) Atrial flutter Status: Chronic Assessment & Plan: On Eliquis, normal heart rate currently. (10) DVT prophylaxis Status: Acute Assessment & Plan: On Eliquis Clinical Quality Measures DVT/VTE Risk/Contraindication: Risk Factor Score Per Nursin RFS Level Per Nursing on Admit: 4+=Very High HERBERT LAU MD Jul 28, 2018 17:42
[2018-07-28 19:03] VITALS: BP 131/72
[2018-07-28 23:51] VITALS: BP 138/79
[2018-07-29] MEDS: RT-ALBUTEROL/IPRATROPIUM 3 ML (DUONEB) VIAL INH SCH ×3 (01:23→10:29)
[2018-07-29 04:53] LABS: BASOPHILS % (AUTO) 1 % (0-10); EOSINOPHILS # (AUTO) 0.4 10^3/uL (0.0-0.3); EOSINOPHILS % (AUTO) 5 % (0-10); HEMATOCRIT 50 % (40-54); HEMOGLOBIN 15.9 G/DL (13.3-17.7); LYMPHOCYTES # (AUTO) 2.1 X 10^3 (1.0-4.0); LYMPHOCYTES % (AUTO) 28 % (12-44); MEAN CORPUSCULAR HEMOGLOBIN 34 PG (25-34); MEAN CORPUSCULAR HGB CONC 32 G/DL (32-36); MEAN CORPUSCULAR VOLUME 107 FL (80-99); MEAN PLATELET VOLUME 12.1 FL (7.4-10.4); MONOCYTES # (AUTO) 1.1 X 10^3 (0.0-1.0); MONOCYTES % (AUTO) 15 % (0-12); NEUTROPHILS # (AUTO) 3.9 X 10^3 (1.8-7.8); NEUTROPHILS % (AUTO) 51 % (42-75); PLATELET COUNT 173 10^3/uL (130-400); RED CELL DISTRIBUTION WIDTH 15.3 % (10.0-14.5); WHITE BLOOD COUNT 7.6 10^3/uL (4.3-11.0)
[2018-07-29 05:00] VITALS: BP 137/71
[2018-07-29 05:07] LABS: CALCIUM 9.8 MG/DL (8.5-10.1); CREATININE SERUM 1.2 MG/DL (0.60-1.30); POTASSIUM 4.1 MMOL/L (3.6-5.0)
[2018-07-29] MEDS: LEVOTHYROXINE 100 MCG (LEVOTHROID) TAB PO SCH (05:25)
[2018-07-29] MEDS: LEVOTHYROXINE 75 MCG (LEVOTHROID) TABLET PO SCH (05:25)
--- NOTE | 2018-07-29 06:32 | Pulmonary Progress Note ---
Sepsis Event Evaluation Height, Weight, BMI Height: " Weight: 339lbs. 1.6oz. 153.128475os; 44.9 BMI Method:Stated Exam Exam Vital Signs Date Time Temp Pulse Resp B/P (MAP) Pulse Ox O2 Delivery O2 Flow Rate FiO2 07/29/18 06:20 96 Nasal Cannula 2.00 07/29/18 05:00 98.1 69 20 137/71 (93) 94 Nasal Cannula 2.00 07/29/18 01:23 90 Nasal Cannula 2.00 07/29/18 00:47 58 07/28/18 23:51 97.9 61 20 138/79 (98) 92 Nasal Cannula 2.00 07/28/18 22:33 92 Nasal Cannula 2.00 07/28/18 21:11 Nasal Cannula 4.00 07/28/18 19:03 97.9 64 20 131/72 (91) 95 Nasal Cannula 2.00 07/28/18 19:00 68 07/28/18 18:33 Nasal Cannula 2.00 07/28/18 15:31 98.2 68 16 138/87 (104) 94 Nasal Cannula 2.00 07/28/18 14:17 91 Nasal Cannula 2.00 07/28/18 12:44 68 07/28/18 11:05 97.7 57 20 124/83 (97) 95 Nasal Cannula 2.00 07/28/18 10:03 92 Room Air 07/28/18 09:00 Nasal Cannula 4.00 07/28/18 07:10 96.0 66 20 147/91 (109) 93 Nasal Cannula 4.00 07/28/18 07:00 65 07/28/18 06:37 93 Nasal Cannula 4.00 I & O 07/29/18 07:00 Intake Total 2200 ml Output Total 1850 ml Balance 350 ml Height & Weight Height: '" Weight: 339lbs. 1.6oz. 153.118183xx; 44.9 BMI Method:Stated General Appearance: No Apparent Distress, WD/WN, Obese HEENT: PERRL/EOMI, Pharynx Normal Neck: Non Tender, Supple Respiratory: Lungs Clear, Normal Breath Sounds Cardiovascular: Regular Rate, Rhythm, No Edema, No Murmur Capillary Refill: Greater Than 3 Seconds Gastrointestinal: normal bowel sounds, non tender, soft Extremity: Normal Range of Motion, Non Tender, Pedal Edema (2+ up to knees bilateral) Neurologic/Psychiatric: Alert, Oriented x3 Skin: Warm/Dry, Ecchymosis Results Lab Laboratory Tests 07/28/18 04:11 07/29/18 04:19 SHEREEN FORREST DO Jul 29, 2018 06:32
[2018-07-29 08:00] VITALS: BP 155/90
--- NOTE | 2018-07-29 10:01 | Discharge Summary ---
Diagnosis/Chief Complaint Date of Admission July 24, 2018 at 16:03 Date of Discharge 07/29/2018 Admission Diagnosis Admission Diagnosis See problem list Discharge Diagnosis See Below Problems/Diagnosis: (1) Acute renal insufficiency Assessment & Plan: Suspect secondary to over-diuresis, will be difficult to balance his fluids. Improved this am with some fluid overnight. Has concomitant UTI, treating that as well. 07/26 continues to improve, diuretic management per Cardiology. 07/28: Much improved, will continue to monitor, if stable tomorrow likely home 07/29 Restarted Lasix, Will see cardiology in clinic to balance diuretics Status: Resolved Resolution Date/Time: 07/27/18 @ 16:59 (2) Hyperkalemia Assessment & Plan: Secondary to MARIO, holding ACEI. Status: Resolved Resolution Date/Time: 07/26/18 @ 14:28 (3) Acute heart failure Assessment & Plan: Cardiology consulted, appreciate recommendations. Acute on chronic systolic heart failure. Last echo of 07/05/18 shows mod conc LVH and LVEF 30-35%; grade 1 alicea dysfunction; mod to sev LA dilatation, mod MAC, AoV sclerosis w/o stenosis; PASP was 60 mmHg. Caution with diuresis given acute renal insufficiency, management per Cardiology. 07/26 clinically improved somewhat, but still requiring 5 lpm supplemental O2 up from 2 lpm at home, continued on daily IV lasix. 07/27 changed to PO lasix per Cardiology Qualifiers: Qualified Codes: I50.9 - Heart failure, unspecified Status: Acute (4) Elevated troponin Assessment & Plan: Suspect type II [place], Cardiology managing. Status: Acute (5) Urinary tract infection Assessment & Plan: Culture pending. On ceftriaxone. 07/26 enterococcus, sensitivity pending. 07/27- sensitive to ampicillin, will change to oral amoxicillin 07/28: Will complete 7 days of treatment for complicated UTI 07/29: Script for PO Amoxicillin sent Qualifiers: Qualified Codes: N30.00 - Acute cystitis without hematuria Status: Acute (6) Hypothyroidism Assessment & Plan: Resume home medications. Status: Chronic (7) Diabetes mellitus, type 2 Assessment & Plan: Diet controlled. Qualifiers: Status: Chronic (8) Fibromyalgia Assessment & Plan: Resume home medications. Status: Chronic (9) Atrial flutter Assessment & Plan: On Eliquis, normal heart rate currently. Status: Chronic (10) DVT prophylaxis Assessment & Plan: On Eliquis Status: Acute Chief Complaint/HPI Chief Complaint/HPI 68 yo male presented to ER he states because he was told he had kidney dysfunction on his labs. He has been having worsening shortness of breath over the last couple of weeks and had just gotten oxygen set up for home and was on 2 lpm, but states his SpO2 was running in the 80s even with that. He states his blood pressure was too high as well and he reports seeing Cardiology a couple of weeks ago and his blood pressure meds and diuretics were both upped, when he had follow up labs, he was told his renal function was down, and so he came in. His tory is a bit disjointed and does not seem to quite match the story reported in ER. Discharge Summary-Simple/Stand Consultations Cardiology: Dr Glass Discharge Physical Examination Allergies: Coded Allergies: carvedilol (Verified Allergy, Intermediate, Takes Metoprolol at home, 07/24/18) warfarin (Verified Allergy, Mild, ULCERS, 12/12/17) Vitals & I&Os Vital Sign - Last 12Hours Date Time Temp Pulse Resp B/P (MAP) Pulse Ox O2 Delivery O2 Flow Rate FiO2 07/29/18 08:00 98.0 81 20 155/90 (111) 97 Nasal Cannula 4.00 07/27/18 21:53 45 Intake and Output 07/29/18 00:00 Intake Total 2200 ml Output Total 1850 ml Balance 350 ml General Appearance: Alert, Oriented X3, Cooperative, Other (morbidly obese adult male) Respiratory: Clear to Auscultation, Normal Air Movement Cardiovascular: No Murmurs Abdominal: Normal Bowel Sounds, Soft, No Tenderness, No Masses Extremities: Other (1+ pitting edema bilaterally) Skin: Other (Chronic Venous statis change LE bilaterally) Neuro: Normal Speech, Strength at 5/5 X4 Ext, Sensation Intact, Cranial Nerves 3-12 NL Hospital Course Was the Problem List Reviewed?: Yes See final discharge diagnosis. Radiology Reviewed NAME: OLINDA NICHOLS MED REC#: [id number] PT STATUS: REG ER : 1950 PHYSICIAN: BEN PETIT MD ADMIT DATE: 07/24/18/ER Draft Date of Exam:07/24/18 CHEST 1 VIEW, AP/PA ONLY INDICATION: Weakness and shortness of air. TIME OF EXAM: 2:59 p.m. Correlation is made with prior study from 06/14/2013. FINDINGS: Heart appears enlarged. There is no infiltrate or failure. No effusion or pneumothorax is seen. IMPRESSION: No acute cardiopulmonary process is detected. Dictated on workstation # [id number] Dict: 07/24/18 1507 Trans: 07/24/18 1514 KB [id number] Interpreted by: ELADIA CLINTON MD Electronically signed by: Discussion & Recommendations 68 yo M that presented with worsening shortness of breath and found to have acute kidney failure. Cardiology and Pulmonology consulted and helping with management of patient during admission. ARF thought to be due to over diuresis and improved with holding medications. Patient was started back on Lasix and ARF resolved. Patient will need 4L oxygen continuously. Patient was also found to have UTI and will complete PO antibiotics as outpatient. Will have close f.u with cardiology given med changes. Discussed the importance of low salt diet given med changes. Discharge Condition at discharge stable Instructions to patient/family Please see electronic discharge instructions given to patient. Discharge Medications Reviewed and agree with Discharge Medication list on patient's Discharge Instruction sheet Clinical Quality Measures DVT/VTE Risk/Contraindication: Risk Factor Score Per Nursin RFS Level Per Nursing on Admit: 4+=Very High Copy Copies To 1: RAHEEM WATKINS MD, HOLLY R MD Jul 29, 2018 10:01
[2018-07-29] MEDS ORDERED: AMOX500C2 PO (10:03)
--- NOTE | 2018-07-29 10:05 | Discharge Instructions ---
Discharge [facility] Discharge Medications New, Converted or Re-Newed RX: Transmitted to Pharmacy New Medications: Amoxicillin (Amoxicillin) 500 Mg Capsule 500 MG PO TID for 3 Days, #9 CAP Continued Medications: Apixaban (Eliquis) 2.5 Mg Tablet 2.5 MG PO BID, TAB Diazepam (Diazepam) 5 Mg Tablet 5 MG PO BID PRN for MUSCLE SPASMS, TAB Furosemide (Furosemide) 80 Mg Tablet 80 MG PO DAILY, TAB Levothyroxine Sodium (Levothyroxine Sodium) 175 Mcg Tablet 175 MCG PO DAILY, TAB Metoprolol Tartrate (Metoprolol Tartrate) 100 Mg Tablet 100 MG PO BID, TAB Multivitamin (Multiple Vitamins) 1 Each Tablet 1 TAB PO DAILY, TAB Potassium Chloride (Potassium Chloride) 10 Meq Tab.er.prt 10 MEQ PO DAILY, CAP Pregabalin (Lyrica) 200 Mg Capsule 200 MG PO TID, CAP Saw/Vit E/Sod Era/Lyc/Beta/Pyg (Prostate Health Caplet) 1 Each Tablet 1 TAB PO DAILY, TAB Discontinued Medications: Lisinopril (Lisinopril) 40 Mg Tablet 40 MG PO DAILY, TAB Magnesium Oxide (Magnesium Oxide) 400 Mg Tablet 400 MG PO BID, TAB Metolazone (Metolazone) 2.5 Mg Tablet 2.5 MG PO DAILY, TAB Spironolactone (Aldactone) 25 Mg Tablet 25 MG PO DAILY, TAB Patient Instructions Goal/Follow Up Appt: - F.u with Dr Watkins next week - F/u with Dr Lozano in 2 weeks Patient Instructions: - Make sure you review your med list as some of your medications have been put on hold Activity & Diet Discharge Diet: Low Sodium Diet, Cardiac Diet Activity as Tolerated: Yes Copy Copies To 1: RAHEEM WATKINS MD, HOLLY R MD Jul 29, 2018 10:05
[2018-07-29] MEDS: POLYETHYLENE GLYCOL 17 GM (MIRALAX) PACK PO SCH (10:26)
[2018-07-29] MEDS: APIXABAN 2.5 MG (ELIQUIS) TABLET PO SCH (10:27)
[2018-07-29] MEDS: PREGABALIN 100 MG (LYRICA) CAPSULE PO SCH ×2 (10:27→12:21)
[2018-07-29] MEDS: meTOprolol TARTRATE 50 MG (LOPRESSOR) TAB PO SCH (10:27)
[2018-07-29] MEDS: FUROSEMIDE 40 MG (LASIX) TAB PO SCH (10:27)
[2018-07-29] MEDS: AMOXICILLIN 500 MG (POLYMOX) CAP PO SCH (10:30)
== END 2018-07-29 12:26 | disposition home or self-care (01) | DRG 280 ==
LOC: EDUNIT# 14:15 → ER 14:16 → ICU 16:03 → 4TH 07-25 10:10
PROVIDERS: ADMIT Family Medicine; ATTEND Family Medicine
DX: I11.0 Hypertensive heart disease with heart failure (principal); I50.23 Acute on chronic systolic (congestive) heart failure; J96.20 Acute and chronic respiratory failure, unspecified whether with hypoxia or hypercapnia; I21.A1 Myocardial infarction type 2; N17.9 Acute kidney failure, unspecified; N30.00 Acute cystitis without hematuria; I48.92 Unspecified atrial flutter; E66.2 Morbid (severe) obesity with alveolar hypoventilation; Z68.41 Body mass index [BMI] 40.0-44.9, adult; N18.9 Chronic kidney disease, unspecified; E87.5 Hyperkalemia; E86.9 Volume depletion, unspecified; I42.0 Dilated cardiomyopathy; E11.9 Type 2 diabetes mellitus without complications; E03.9 Hypothyroidism, unspecified; J45.909 Unspecified asthma, uncomplicated; N40.0 Benign prostatic hyperplasia without lower urinary tract symptoms; M79.7 Fibromyalgia; M19.91 Primary osteoarthritis, unspecified site; H91.90 Unspecified hearing loss, unspecified ear; I44.0 Atrioventricular block, first degree; Z79.01 Long term (current) use of anticoagulants; Z99.81 Dependence on supplemental oxygen; B95.2 Enterococcus as the cause of diseases classified elsewhere; I35.8 Other nonrheumatic aortic valve disorders; T50.1X5A Adverse effect of loop [high-ceiling] diuretics, initial encounter
CPT/HCPCS: 36415; 71045; 71250; 80048; 80053; 81000; 82805; 82962; 83605; 83735; 83880; 84100; 84443; 84484; 85025; 85027; 85652; 86141; 87040; 87077; 87088; 87186; 93005; 93041; 94640; 94660; 94760; 96374; 96375

== ENCOUNTER → 2019-04-23 | Outpatient (CLI) | payer MEDICARE ==
[~2019-04-23] MED LIST changes: +AMOX500C2 PO; +APIX2.5T PO; +DIAZ5TAB49 PO; +FURO80TA3 PO; +LISI40TA PO; +METO100T12 PO; +METO2.5T PO; +POTA10TA36 PO; +SPIR25TA PO; +SPIR50TA PO
[2019-04-23 12:21] LABS: BASOPHILS % (AUTO) 1 % (0-10); EOSINOPHILS # (AUTO) 0.4 10^3/uL (0.0-0.3); EOSINOPHILS % (AUTO) 3 % (0-10); HEMATOCRIT 50 % (40-54); HEMOGLOBIN 16.4 G/DL (13.3-17.7); LYMPHOCYTES # (AUTO) 2.4 X 10^3 (1.0-4.0); LYMPHOCYTES % (AUTO) 23 % (12-44); MEAN CORPUSCULAR HEMOGLOBIN 36 PG (25-34); MEAN CORPUSCULAR HGB CONC 33 G/DL (32-36); MEAN CORPUSCULAR VOLUME 108 FL (80-99); MEAN PLATELET VOLUME 11.1 FL (7.4-10.4); MONOCYTES # (AUTO) 0.9 X 10^3 (0.0-1.0); MONOCYTES % (AUTO) 9 % (0-12); NEUTROPHILS # (AUTO) 6.8 X 10^3 (1.8-7.8); NEUTROPHILS % (AUTO) 64 % (42-75); PLATELET COUNT 190 10^3/uL (130-400); RED CELL DISTRIBUTION WIDTH 13.5 % (10.0-14.5); WHITE BLOOD COUNT 10.6 10^3/uL (4.3-11.0)
[2019-04-23 12:22] LABS: BASOPHILS # (AUTO) 0.1 10^3/uL (0.0-0.1)
[2019-04-23 13:34] LABS: ALANINE AMINOTRANSFERASE 41 U/L (0-55); ALKALINE PHOSPHATASE 90 U/L (40-136); BILIRUBIN,TOTAL 0.8 MG/DL (0.1-1.0); BUN/CREATININE RATIO 24; CALCIUM 9.8 MG/DL (8.5-10.1); CARBON DIOXIDE 33 MMOL/L (21-32); CHLORIDE 94 MMOL/L (98-107); CREATININE SERUM 0.95 MG/DL (0.60-1.30); GFR ESTIMATED > 60; GLUCOSE 173 MG/DL (70-105); MAGNESIUM 1.6 MG/DL (1.6-2.4); POTASSIUM 3.9 MMOL/L (3.6-5.0); SODIUM 140 MMOL/L (135-145); TOTAL PROTEIN 8.4 GM/DL (6.4-8.2)
[2019-04-23 15:30] LABS: CHOLESTEROL 175 MG/DL (< 200); HDL CHOLESTEROL 60 MG/DL (40-60); TRIGLYCERIDES 149 MG/DL (<150); VLDL CHOLESTEROL 30 MG/DL (5-40)
== END ==
LOC: LAB FS 11:41
PROVIDERS: ATTEND Internal Medicine Cardiovascular Disease
DX: I42.0 Dilated cardiomyopathy (principal); I48.92 Unspecified atrial flutter; G47.33 Obstructive sleep apnea (adult) (pediatric); E66.8 Other obesity
CPT/HCPCS: 36415; 80053; 80061; 83735; 85025

== ENCOUNTER → 2019-04-30 | Outpatient (CLI) | payer MEDICARE ==
[~2019-04-30] VITALS: Ht 182 cm; Wt 152.0 kg
[~2019-04-30] MED LIST changes: +REGADENOSON 0.4 MG/5 ML SYR (LEXISCAN) IV ONE
[2019-04-30] MEDS: CATHETER FLUSH 10 ML SYR IV PRN (11:38)
[2019-04-30 13:27] VITALS: BP 168/108
--- NOTE | 2019-05-01 10:21 | STRESS TEST ---
DATE OF SERVICE: 04/30/2019 RESTING AND POST REGADENOSON TECHNETIUM-99M TETROFOSMIN SPECT CT IMAGING ORDERING PHYSICIAN: Dr. Lozano. PRIMARY PHYSICIAN: Dr. Tristan. CLINICAL DIAGNOSES: Cardiomyopathy, atrial flutter. Baseline images were carried out after injection of 10.61 mCi of technetium-99m Tetrofosmin. This was followed by 0.4 mg Regadenoson and 30.3 mCi of technetium-99m Tetrofosmin for stress imaging. The electrocardiogram showed sinus rhythm at baseline. There was incomplete left bundle branch block. The electrocardiogram did not change significantly with the Regadenoson infusion. A few isolated premature ventricular contractions were seen. The patient did not report symptoms. Review of images at rest and following stress indicate apical and basal inferolateral perfusion defect that appeared predominantly fixed. Gated images show global hypokinesis, more so at the apex and the basal inferolateral segment. Left ventricular ejection fraction is calculated to be 43%. Left ventricular end diastolic volume is 155 mL. TID is absent (0.99). CONCLUSIONS: 1. Dilated cardiomyopathy with an ejection fraction of 43%. 2. Basal inferolateral and apical perfusion defects, consistent with myocardial infarction without significant ischemia. 3. Global hypokinesis of the left ventricle that is more marked at the basal inferolateral and apical segments. Job ID: [id number] DocumentID: [id number] Dictated Date: 05/01/2019 09:11:13 Fabricator Special Items Date: 05/01/2019 10:20:31 Dictated By: MONCHO LOZANO MD, MA, FACP, FACC,
== END ==
LOC: CARD 10:39
PROVIDERS: ATTEND Internal Medicine Cardiovascular Disease
DX: I51.89 Other ill-defined heart diseases (principal); I48.92 Unspecified atrial flutter; G47.33 Obstructive sleep apnea (adult) (pediatric); I42.0 Dilated cardiomyopathy; I51.7 Cardiomegaly
CPT/HCPCS: 78452; 93017; 93306

== ENCOUNTER 2019-11-26 03:27 | Inpatient (IN) | payer MEDICARE ==
[~2019-11-26] VITALS: Ht 185.4 cm; Wt 153.8 kg
[2019-11-26] VITALS (16 sets, daily range): BP systolic 137–180; BP diastolic 78–108
[~2019-11-26 03:27] MED LIST changes: -REGADENOSON 0.4 MG/5 ML SYR (LEXISCAN) IV ONE
[2019-11-26] MEDS ORDERED: FLU QUAD HIGH DOSE 240 MCG/0.7 ML 2020-21 (FLUZONE) IM ONE (06:45)
--- NOTE | 2019-11-26 07:23 | Consultation-Cardiology ---
HPI-Cardiology Cardiology Consultation Date of Consultation 11/26/19 Date of Admission Time Seen by Provider: 07:16 Indication: non-ST elevation myocardial infarction HPI 69 years old gentleman with history of nonischemic cardiomyopathy, has been doing well started on diuretic recently due to worsening pedal edema. While he was walking to the bathroom he felt very weak and fell to the floor, denied any syncope, denied any palpitation or chest pain. No shortness of breath. Patient was taken to the emergency room and noted to have elevation in troponin level. He is currently laying down in bed comfortable, no active chest pain. No palpitation. Home Medications & Allergies Allergies: Coded Allergies: carvedilol (Verified Allergy, Intermediate, Takes Metoprolol at home, 07/24/18) warfarin (Verified Allergy, Mild, ULCERS, 12/12/17) Home Medication List Reviewed: Yes QGI-Dhtymk-Czbfih Hx Patient Social History Employed/Student: retired Alcohol Use: Regular Use Recreational Drug Use: No Smoking Status: Never a Smoker 2nd Hand Smoke Exposure: No Recent Foreign Travel: No Recent Infectious Disease Expo: No Recent Hopitalizations: No Physical Abuse Screen: No Sexual Abuse: No Immunizations Up To Date Tetanus Booster (TDap): Unknown Date of Pneumonia Vaccine: Nov 25, 2018 Date of Influenza Vaccine: Dec 04, 2017 Past Medical History Discussed below Family Medical History Family History: Congestive heart failure 03 FATHER (87 ) Family history: Diabetes mellitus 03 MOTHER (55 ) Family history: Hypertension 03 MOTHER (50 ) Hypercholesterolemia 03 MOTHER (55 ) Myocardial infarction 03 FATHER, Onset:87 Review of Systems-General Review of Systems Constitutional: no symptoms reported, see HPI, malaise, weakness EENTM: see HPI, no symptoms reported Respiratory: see HPI; No cough; dyspnea on exertion; No hemoptysis, No orthopnea, No phlegm, No short of breath, No stridor, No wheezing, No other Cardiovascular: see HPI; No chest pain; edema; No Hx of Intervention, No palpitations, No syncope, No vascular heart diseas, No other Gastrointestinal: no symptoms reported, see HPI Genitourinary: no symptoms reported, see HPI Musculoskeletal: no symptoms reported, see HPI, joint pain, muscle weakness Skin: no symptoms reported, see HPI Psychiatric/Neurological: No Symptoms Reported, See HPI Physical Exam Physical Exam Vital Signs Vital Signs - First Documented 11/26/19 05:18 Temp 37.1 Pulse 83 Resp 26 B/P (MAP) 148/86 (106) Pulse Ox 96 O2 Delivery Nasal Cannula O2 Flow Rate 5.00 Capillary Refill : Height, Weight, BMI Height: 6'1.00" Weight: 339lbs. 1.6oz. 153.441909cb; 41.32 BMI Method:Stated General Appearance: No Apparent Distress, WD/WN Eyes: Bilateral Eye Normal Inspection, Bilateral Eye PERRL, Bilateral Eye EOMI HEENT: PERRL/EOMI, TMs Normal, Normal ENT Inspection, Pharynx Normal, Moist Mucous Membranes Neck: Full Range of Motion, Normal Inspection, Non Tender, Supple, Carotid Bruit Respiratory: Chest Non Tender, Normal Breath Sounds, No Accessory Muscle Use, No Respiratory Distress Cardiovascular: Regular Rate, Rhythm, No Gallop, No JVD, Normal Peripheral Pulses, Systolic Murmur Gastrointestinal: Normal Bowel Sounds, No Organomegaly, No Pulsatile Mass, Non Tender, Soft Back: Normal Inspection, No CVA Tenderness, No Vertebral Tenderness Extremity: Normal Capillary Refill, Normal Inspection, Normal Range of Motion, Non Tender, No Calf Tenderness, Other (+2-3 pedal edema) Neurologic/Psychiatric: Alert, Oriented x3, No Motor/Sensory Deficits, Normal Mood/Affect Skin: Normal Color, Warm/Dry Lymphatic: No Adenopathy A/P-Cardiology Admission Diagnosis Non-ST elevation myocardial infarction Paroxysmal atrial flutter Congestive heart failure Hypertension Assessment/Plan Non-ST elevation myocardial infarction, stress test in April 2019 reported dilated cardiomyopathy with ejection fraction 43 percent with fixed defect suggestive of myocardial infarction. Reported no significant disease by cardiac catheter in April [address] Beltran. I recommend repeating cardiac catheterization Generalized weakness and fall, no full syncope was reported. Questionable arrhythmia, patient has a loop recorder which will be interrogated Congestive heart failure, acute on chronic left ventricular systolic dysfunction ejection fraction 40 percent. Restart home medication and monitor Paroxysmal atrial flutter, had a loop recorder implanted in June 2017. Followed by Dr. Lozano History of alcohol abuse, still drinking alcohol on a daily basis Hyperlipidemia maintained on Lipitor 40 mg daily, followed by Dr. Lozano Hypothyroidism followed and managed by primary care physician Nonhealing leg ulcer on the left side. Has been followed by Dr. Lozano, will consider CATERINA. Chronic kidney disease stage IV, monitor renal function Clinical Quality Measures DVT/VTE Risk/Contraindication: Risk Factor Score Per Nursin RFS Level Per Nursing on Admit: 4+=Very High MÓNICA SAHU MD Nov 26, 2019 07:22
[2019-11-26 07:41] LABS: HEMOGLOBIN 15.9 g/dL (13.3-17.7); WHITE BLOOD COUNT 7.3 10^3/uL (4.3-11.0)
[2019-11-26 07:49] LABS: ALBUMIN 3.6 GM/DL (3.2-4.5); CHLORIDE 93 MMOL/L (98-107); POTASSIUM 3.6 MMOL/L (3.6-5.0); SODIUM 143 MMOL/L (135-145)
[2019-11-26 07:51] LABS: CALCIUM 9.2 MG/DL (8.5-10.1)
[2019-11-26 07:52] LABS: GLUCOSE 100 MG/DL (70-105); TOTAL PROTEIN 7.7 GM/DL (6.4-8.2)
[2019-11-26 07:53] LABS: CARBON DIOXIDE 35 MMOL/L (21-32)
[2019-11-26 07:54] LABS: BILIRUBIN,TOTAL 0.6 MG/DL (0.1-1.0)
[2019-11-26 07:55] LABS: ALKALINE PHOSPHATASE 94 U/L (40-136); CREATININE SERUM 1.14 MG/DL (0.60-1.30); GFR ESTIMATED > 60
[2019-11-26 07:56] LABS: BUN/CREATININE RATIO 18
[2019-11-26 07:58] LABS: ALANINE AMINOTRANSFERASE 26 U/L (0-55)
[2019-11-26] MEDS ORDERED: HEParin (CATH LAB) 2,000 ML IV ONE (08:16)
[2019-11-26] MEDS ORDERED: LIDOCAINE 1% INJ 20 ML 20 ML VIAL ONE (08:16)
--- NOTE | 2019-11-26 08:42 | Pulmonary Consultation ---
History of Present Illness History of Present Illness Date Seen by Provider: Nov 26, 2019 Time Seen by Provider: 08:25 Date of Admission Reason for Visit: non-ST elevation myocardial infarction History of Present Illness Sudeep Bains is a 69 year old male seen today due to NSTEMI. He reports that he went to ED due to weakness upon standing causing him to have to sit back down and need assistance moving. Denies any dizziness or syncope. In the ED he was noted to have an elevated troponin. He reports seeing Dr. Castellanos and taking double the dose of lasix for pedal edema starting last week, which was cut back down to his normal dose several days ago. Yesterday he reports increased frequency of urination while still taking normal dose of diuretics. He denies having any CP, SOB, palpitations, fever/chills, n/v. His truck sales representative is Dr. Lozano. Allergies and Home Medications Allergies Coded Allergies: carvedilol (Verified Allergy, Intermediate, Takes Metoprolol at home, 07/24/18) warfarin (Verified Allergy, Mild, ULCERS, 12/12/17) Home Medications Amoxicillin 500 Mg Capsule, 500 MG PO TID Prescribed by: HERBERT LAU on 07/29/18 1003 Apixaban 2.5 Mg Tablet, 2.5 MG PO BID, (Reported) Diazepam 5 Mg Tablet, 5 MG PO BID PRN for MUSCLE SPASMS, (Reported) Furosemide 80 Mg Tablet, 80 MG PO DAILY, (Reported) Levothyroxine Sodium 175 Mcg Tablet, 175 MCG PO DAILY, (Reported) Metoprolol Tartrate 100 Mg Tablet, 100 MG PO BID, (Reported) Multivitamin 1 Each Tablet, 1 TAB PO DAILY, (Reported) Potassium Chloride 10 Meq Tab.er.prt, 10 MEQ PO DAILY, (Reported) Pregabalin 200 Mg Capsule, 200 MG PO TID, (Reported) Saw/Vit E/Sod Era/Lyc/Beta/Pyg 1 Each Tablet, 1 TAB PO DAILY, (Reported) Past Hkpjepr-Btjzpn-Sqezsy Hx Patient Social History Alcohol Use: Regular Use Number of Drinks Today: 1 Alcohol Beverage of Choice: Whiskey Recreational Drug Use: No Smoking Status: Never a Smoker 2nd Hand Smoke Exposure: No Recent Foreign Travel: No Contact w/Someone Who Travel: No Recent Infectious Disease Expo: No Recent Hopitalizations: No Immunizations Up To Date Tetanus Booster (TDap): Unknown Date of Pneumonia Vaccine: Nov 25, 2018 Date of Influenza Vaccine: Dec 04, 2017 Seasonal Allergies Seasonal Allergies: No Past Medical History Surgeries: Yes (crush injury to right arm with fasciotomy, left shoulder FX, COLONOSCOPY) Respiratory: Yes (dyspnea) Asthma, Chronic Bronchitis, Sleep Apnea Currently Using CPAP: No Currently Using BIPAP: No Cardiac: Yes (VERY POOR HISTORIAN-) Irregular Heartbeat Neurological: No Reproductive Disorders: No Sexually Transmitted Disease: No HIV/AIDS: No Genitourinary: Yes Benign Prostatic Hyperpl Gastrointestinal: No Musculoskeletal: Yes Arthritis, Fibromyalgia Endocrine: Yes Hypothyroidsim HEENT: Yes (READING GLASSES) Loss of Vision: Bilateral Hearing Impairment: Hard of Hearing Cancer: No Psychosocial: No Integumentary: Yes (flushed coloring) Blood Disorders: No Adverse Reaction/Blood Tranf: No (N/A) Family Medical History Congestive heart failure 03 FATHER (87 ) Family history: Diabetes mellitus 03 MOTHER (55 ) Family history: Hypertension 03 MOTHER (50 ) Hypercholesterolemia 03 MOTHER (55 ) Myocardial infarction 03 FATHER, Onset:87 Review of Systems Constitutional: Weakness; No: Fever, Chills Eyes: No: Vision change ENT: No: Nose congestion, Throat pain Respiratory: No: Cough, Shortness of breath Cardiovascular: Edema; No: Chest Pain, Palpitations, Lt Headedness Gastrointestinal: No: Nausea, Vomiting, Abdominal Pain, Diarrhea, Constipation Genitourinary: No Dysuria; Frequency (increased yesterday) Neurological: No: Weakness, Numbness Sepsis Event Evaluation Height, Weight, BMI Height: 6'1.00" Weight: 339lbs. 1.6oz. 153.755145mo; 41.32 BMI Method:Stated Exam Exam Vital Signs Date Time Temp Pulse Resp B/P (MAP) Pulse Ox O2 Delivery O2 Flow Rate FiO2 11/26/19 08:18 36.7 11/26/19 06:15 77 15 143/80 (101) 90 Nasal Cannula 5.00 11/26/19 06:00 76 13 137/82 (100) 88 Nasal Cannula 5.00 11/26/19 05:45 74 16 140/81 (100) 89 Nasal Cannula 5.00 11/26/19 05:30 77 15 138/78 (98) 93 Nasal Cannula 5.00 11/26/19 05:21 80 11/26/19 05:18 37.1 83 26 148/86 (106) 96 Nasal Cannula 5.00 Height & Weight Height: 6'1.00" Weight: 339lbs. 1.6oz. 153.970472qd; 41.32 BMI Method:Stated General Appearance: No Apparent Distress, Chronically ill, Obese HEENT: PERRL/EOMI; No Scleral Icterus (L), No Scleral Icterus (R) Neck: Normal Inspection, Non Tender, Supple Respiratory: Chest Non Tender, Normal Breath Sounds, No Accessory Muscle Use, No Respiratory Distress Cardiovascular: Regular Rate, Rhythm, No Gallop, No JVD, No Murmur, Normal Peripheral Pulses Capillary Refill: Less Than 3 Seconds Peripheral Pulses: 2+ Left Dors-Pedis (L), 2+ Radial Pulses (R), 2+ Radial Pulses (L) Gastrointestinal: normal bowel sounds, non tender, soft, no organomegaly Extremity: Normal Capillary Refill, Normal Inspection, Non Tender, No Calf Tenderness, Pedal Edema (2+), Other (R leg wrapped) Neurologic/Psychiatric: Alert, Oriented x3, Normal Mood/Affect Skin: Normal Color, Warm/Dry Lymphatic: No Adenopathy Results Lab Laboratory Tests 11/26/19 07:30 Assessment/Plan Assessment/Plan NSTEMI Cardiology following, recommends cath Stress test 04/30/19 - EF 43%, dilated cardiomyopathy, basal inferolateral and apical perfusion defects, consistent with myocardial infarction without significant ischemia. continue to monitor troponins CHF Cardiology following BNP 596.8 Consider CXR Consider restarting home medications PAF Cardiology following, loop recorder implanted due to concern for arrhythmia with fall Hypothyroidism Consider restarting home levothyroxine LIBERTY GARCIA MED STUDENT Nov 26, 2019 08:42
--- NOTE | 2019-11-26 11:15 | NUR ---
Pastoral care visit.
[2019-11-26] MEDS ORDERED: fentaNYL INJECTION 100 MCG/2 ML AMP ONE ×2 (11:29→12:49)
[2019-11-26] MEDS ORDERED: MIDAZOLAM 5 MG/5 ML (VERSED) VIAL ONE (11:29)
[2019-11-26] MEDS ORDERED: NS IV 1000 ML 1,000 ML ONE (11:37)
--- NOTE | 2019-11-26 11:48 | Cardiac Procedure Note-CS/ASA ---
Pre-Procedure Note Pre-Op Procedure Note H&P Reviewed The H&P was reviewed, patient examined and no changes noted. Date H&P Reviewed: Nov 26, 2019 Time H&P Reviewed: 11:48 Conscious Sedation Pre-Proced Time 11:48 ASA Score 3 For ASA 3 and 4: Consider anesthesia and medical clearance. Also, for patients with a history of failed moderate sedation consider anesthesia. Airway Lungs Heart ASA score ASA 1: a normal healthy patient ASA 2: a patient with a mild systemic disease (mid diabetes, controlled hypertension, obesity ASA 3: a patient with a severe systemic disease that limits activity (angina, COPD, prior Myocardial infarction) ASA 4: a patient with an incapacitating disease that is a constant threat to life (CHF, renal failure) ASA 5: a moribund patient not expected to survive 24 hrs. (ruptured aneurysm) ASA 6: a declared brain- patient whose organs are being harvested. For emergent operations, add the letter E after the classification Mallampati Classification Grade 2 Sedation Plan Analgesia, Amnesia, Plan communicated to team members, Discussed options with patient/fam, Discussed risks with patient/fam The patient is an appropriate candidate to undergo the planned procedure, sedation, and anesthesia. The patient immediately re-assessed prior to indication. MONCHO SHELBY MD FACP FAC CCDS Nov 26, 2019 11:48
--- NOTE | 2019-11-26 11:49 | History & Physical ---
HPI History of Present Illness: 69 yo F that presented after family could not get him up off the floor. Patient states that his legs just collapsed. Denies any shortness of breath or chest pain. States that he recently had a wound on his right lower leg that his opened up. He has been following with his PCP in [place]. is requesting wound care. He states that he has not messed any medications and he has been feeling ok recently. Source: patient, old records Exam Limitations: no limitations Date seen by provider: Nov 26, 2019 Time Seen by Provider: 10:00 Attending Physician Abby Ny DO PCP Pool Tristan MD Consult Date of Admission Nov 26, 2019 at 05:10 Home Medications Home Medications Reviewed patient Home Medication Reconciliation performed by pharmacy medication reconciliations chemical processing technician and/or nursing. Patients Allergies have been reviewed. Allergies Coded Allergies: carvedilol (Verified Allergy, Intermediate, Takes Metoprolol at home, 07/24/18) warfarin (Verified Allergy, Mild, ULCERS, 12/12/17) SZD-Fhecpn-Xzzigf Hx Patient Social History Employed/Student: retired Alcohol Use: Regular Use Recreational Drug Use: No Smoking Status: Never a Smoker 2nd Hand Smoke Exposure: No Recent Foreign Travel: No Contact w/other who traveled: No Recent Hopitalizations: No Recent Infectious Disease Expo: No Physical Abuse Screen: No Sexual Abuse: No Immunizations Up To Date Tetanus Booster (TDap): Unknown Date of Pneumonia Vaccine: Nov 25, 2018 Date of Influenza Vaccine: Dec 04, 2017 Past Medical History PMHx: Systolic congestive heart failure (EF 10-15% in 2013) Intermittent atrial fibrillation/flutter DMII HTN Fibromyalgia CKD IV Hypothyroidism SurgHx: Right arm repair Family Medical History Family History: Congestive heart failure 03 FATHER (87 ) Family history: Diabetes mellitus 03 MOTHER (55 ) Family history: Hypertension 03 MOTHER (50 ) Hypercholesterolemia 03 MOTHER (55 ) Myocardial infarction 03 FATHER, Onset:87 Review of Systems (CHC) Constitutional: no symptoms reported; No fever, No malaise, No weakness EENTM: no symptoms reported; No mouth pain, No nose pain Respiratory: no symptoms reported; No cough, No dyspnea on exertion, No short of breath Cardiovascular: No chest pain; edema; No palpitations Gastrointestinal: no symptoms reported; No abdominal pain, No constipation, No diarrhea, No nausea, No vomiting Genitourinary: no symptoms reported; No dysuria, No frequency, No hematuria Musculoskeletal: no symptoms reported; No back pain, No joint pain, No muscle pain Skin: no symptoms reported Psychiatric/Neurological: No Symptoms Reported, Weakness Reviewed Test Results Reviewed Test Results Lab Laboratory Tests Test 11/26/19 07:30 11/26/19 08:00 Range/Units White Blood Count 7.3 4.3-11.0 10^3/uL Red Blood Count 4.54 4.30-5.52 10^6/uL Hemoglobin 15.9 13.3-17.7 g/dL Hematocrit 49 40-54 % Mean Corpuscular Volume 108 H 80-99 fL Mean Corpuscular Hemoglobin 35 H 25-34 pg Mean Corpuscular Hemoglobin Concent 32 32-36 g/dL Red Cell Distribution Width 14.0 10.0-14.5 % Platelet Count 235 130-400 10^3/uL Mean Platelet Volume 11.0 9.0-12.2 fL Sodium Level 143 135-145 MMOL/L Potassium Level 3.6 3.6-5.0 MMOL/L Chloride Level 93 L 98-107 MMOL/L Carbon Dioxide Level 35 H 21-32 MMOL/L Anion Gap 15 H 5-14 MMOL/L Blood Urea Nitrogen 21 H 7-18 MG/DL Creatinine 1.14 0.60-1.30 MG/DL Estimat Glomerular Filtration Rate > 60 BUN/Creatinine Ratio 18 Glucose Level 100 70-105 MG/DL Calcium Level 9.2 8.5-10.1 MG/DL Corrected Calcium 9.5 8.5-10.1 MG/DL Total Bilirubin 0.6 0.1-1.0 MG/DL Aspartate Amino Transf (AST/SGOT) 41 H 5-34 U/L Alanine Aminotransferase (ALT/SGPT) 26 0-55 U/L Alkaline Phosphatase 94 40-136 U/L Troponin I 0.717 *H <0.028 NG/ML Total Protein 7.7 6.4-8.2 GM/DL Albumin 3.6 3.2-4.5 GM/DL B-Type Natriuretic Peptide 596.8 H <100.0 PG/ML Physical Exam-(CHC) Physical Exam Vital Signs VS - Last 72 Hours, by Label 11/26/19 11/26/19 11/26/19 11/26/19 05:18 05:21 05:30 05:45 Temp 37.1 Pulse 83 80 77 74 Resp 26 15 16 B/P (MAP) 148/86 (106) 138/78 (98) 140/81 (100) Pulse Ox 96 93 89 O2 Delivery Nasal Cannula Nasal Cannula Nasal Cannula O2 Flow Rate 5.00 5.00 5.00 11/26/19 11/26/19 11/26/19 11/26/19 06:00 06:15 06:42 07:00 Pulse 76 77 75 74 Resp 13 15 14 B/P (MAP) 137/82 (100) 143/80 (101) 146/87 (106) Pulse Ox 88 90 92 O2 Delivery Nasal Cannula Nasal Cannula Nasal Cannula O2 Flow Rate 5.00 5.00 5.00 11/26/19 11/26/19 11/26/19 11/26/19 08:00 08:00 08:18 09:00 Temp 36.7 Pulse 74 72 Resp 12 12 B/P (MAP) 174/100 (124) 137/90 (106) Pulse Ox 94 94 O2 Delivery Nasal Cannula Nasal Cannula Nasal Cannula O2 Flow Rate 5.00 5.00 5.00 11/26/19 11/26/19 11/26/19 11/26/19 09:58 10:00 11:00 12:00 Pulse 73 74 Resp 14 15 B/P (MAP) 180/95 (123) 175/102 (126) Pulse Ox 94 93 94 O2 Delivery Nasal Cannula Nasal Cannula Nasal Cannula Nasal Cannula O2 Flow Rate 5.00 5.00 5.00 5.00 11/26/19 11/26/19 11/26/19 11/26/19 13:15 13:35 16:00 16:00 Temp 35.8 Pulse 88 B/P (MAP) 157/89 (111) O2 Delivery Nasal Cannula Nasal Cannula O2 Flow Rate 5.00 5.00 11/26/19 11/26/19 11/26/19 11/26/19 17:00 18:00 19:15 19:28 Temp 36.8 Pulse 82 75 76 Resp 6 16 B/P (MAP) 174/103 (126) 159/91 (113) 168/98 (121) Pulse Ox 95 94 92 O2 Delivery Nasal Cannula Nasal Cannula Nasal Cannula O2 Flow Rate 5.00 5.00 5.00 Capillary Refill : Less Than 3 Seconds General Appearance: WD/WN, no apparent distress HEENT: PERRL/EOMI Neck: non-tender, full range of motion, supple Respiratory: chest non-tender, lungs clear, normal breath sounds, no respiratory distress, no accessory muscle use Cardiovascular: normal peripheral pulses, regular rate, rhythm, no murmur Gastrointestinal: normal bowel sounds, non tender, soft Extremities: pedal edema (2+ Pitting edema) Neurologic/Psychiatric: worm grower II-XII nml as tested, no motor/sensory deficits, alert, normal mood/affect, oriented x 3 Skin: normal color, warm/dry Lymphatic: no adenopathy Assessment/Plan Assessment/Plan Admission Status: Inpatient Order (span 2 midnights) Reason for Inpatient Admission: Needs to be monitored closely and seen by specialist (1) Elevated troponin level Status: Acute Assessment & Plan: - Consult Cardiology, appreciate recommendations, plan for cath today (2) Fall Status: Acute Assessment & Plan: - PT ordered Qualifiers: Qualified Codes: W19.XXXA - Unspecified fall, initial encounter (3) Acute on chronic systolic CHF (congestive heart failure) Status: Acute Assessment & Plan: - Cardiology following (4) CKD (chronic kidney disease), stage IV Status: Chronic Assessment & Plan: - At baseline, will continue to monitor with diuretics (5) Atrial fibrillation, controlled Status: Chronic Assessment & Plan: - OAC (6) Hypothyroidism Status: Chronic (7) Leg wound, right Assessment & Plan: - Wound Care ordered Clinical Quality Measures DVT/VTE Risk/Contraindication: Risk Factor Score Per Nursin RFS Level Per Nursing on Admit: 4+=Very High HERBERT LAU MD Nov 26, 2019 11:49
[2019-11-26] MEDS: NS IV 1000 ML 1,000 ML IV SCH (12:23)
[2019-11-26] MEDS ORDERED: HEParin 1000 UNIT/ML (10ML VIAL) FOR BOLUS ONE (12:23)
[2019-11-26] MEDS ORDERED: CATHETER FLUSH 10 ML SYR IV PRN (12:30)
[2019-11-26] MEDS ORDERED: MIDAZOLAM 2 MG/2 ML (VERSED) VIAL ONE (12:46)
[2019-11-26] MEDS ORDERED: meTOprolol 5 MG/5 ML (LOPRESSOR) VIAL ONE (12:50)
[2019-11-26] MEDS ORDERED: NS IV 1000 ML 1,000 ML IV SCH ×2 (12:59→13:09)
[2019-11-26] MEDS ORDERED: PATIENT MAY USE OWN MEDS, ALL PO SCH ×2 (13:00→13:15)
--- NOTE | 2019-11-26 13:22 | NUR ---
RD ASSESSMENT PMHx: HLD; CHF; hypothyroidism; CKD(stage IV); ETOH use/abuse; BPH PT INTERACTION: Pt was awake and pleasant during nutrition assessment. Note pt is a poor historian, per chart review. Pt states current appetite is good. Note pt has been NPO since admit, with diet recently advanced to CHO 60g/m 1snack diet. Pt states following a high-protein diet at home, and has no issues with chewing/swallowing food. Pt states no recent issues with nausea, vomiting, constipation, or diarrhea, and that his last BM was 11/24. Note pt not currently on bowel regimen per chart review. Pt states recent wt loss, but unsure of amount/timeframe. Pt states wt loss was from "losing water." Note recent 13# wt loss x7mon, per chart review. Note presence of wound (L leg), per chart review. ABNORMAL NUTRITION-RELATED LAB VALUES LOW: Cl 93; HIGH: BUN 21; AST 41; Est. kcal needs: 2200 kcal | 15 kcal/kg Est. Pro needs: 146 g Pro | 1.0 g Pro/kg PES STATEMENT: Inadequate protein intake (NI-5.6.1) related to increased protein needs as evidenced by presence of wound (left leg) INTERVENTION: Continue with current diet order of CHO 60g/m 1snack diet. Add Ensure HP (vary) to meals TID. Provides 160 kcal and 16 g Pro per serving, for perceived benefit to wound healing. Will continue to follow and reassess as pt needs, intake, and status change. Terrell Moran, MS, RD, LD
--- NOTE | 2019-11-26 13:36 | CARDIAC CATHETERIZATION ---
DATE OF SERVICE: 11/26/2019 CARDIAC CATHETERIZATION REPORT INDICATION FOR PROCEDURE: The patient is a 69-year-old man, who was admitted to the hospital with weakness. Troponin was elevated. Dr. Glass saw him in cardiology consultation, who recommended cardiac catheterization. Informed consent was obtained. DESCRIPTION OF PROCEDURE: He was brought to the cardiac catheterization laboratory. Right groin was prepared and draped in the usual sterile fashion. Lidocaine 1% was used for local anesthesia. Modified Seldinger technique was used to advance a 5-Mosotho sheath in the right femoral artery, 5-Mosotho JL4 catheter was used for left coronary angiography and 5-Mosotho JR4 catheter was used for right coronary angiography. Left coronary angiography was difficult because the catheter was engaging the left circumflex artery preferentially. We used several different catheters. Because we were not able to get a good view of the left anterior descending artery and because there was a question of a lesion in the left anterior descending, we exchanged the sheath over a wire for a 6-Mosotho sheath and used of a 6-Mosotho JL5 diagnostic catheter and then a contralateral support guide catheter (CLS4) to engage the left coronary artery. We were still not getting good engagement of the left coronary. We advanced a BMW wire into the left anterior descending and we were then able to advance the guide more towards the left anterior descending artery and were then able to get good views of the left anterior descending. There did not appear to be a significant lesion in the left anterior descending and we removed the wire and the guide catheter. We used a 5-Mosotho pigtail catheter for a left heart catheterization and left ventricular angiography. Catheter exchanges were made over an exchange length wire. At the end, angiography of the right femoral artery was carried out. The sheath and Mynx was used to achieve hemostasis. He tolerated the procedure well. During this procedure, we also performed aortic root angiography with a 5-Mosotho pigtail catheter. This was performed because we had difficulty advancing wire into the left ventricle and wanted to look for any aortic root problems. HEMODYNAMICS: Left ventricular end-diastolic pressure following coronary angiography was 19 mmHg. There was no significant pressure gradient on pullback across the aortic valve. The ascending aortic pressure was 165/101 with a mean of 131 mmHg. CORONARY ANGIOGRAPHY: Left main coronary artery does not exhibit significant disease. Left anterior descending artery has 40% proximal and mid vessel stenosis. Left circumflex artery does not exhibit significant disease. Right coronary artery is dominant and has mild plaque. LEFT VENTRICULAR ANGIOGRAPHY: Left ventricular angiography was carried out in the right anterior oblique projection. There appears to be mild impairment of global left ventricular systolic function with ejection fraction estimated to be 45%. There did not appear to be distinct regional wall motion abnormalities. AORTIC ROOT ANGIOGRAPHY: Aortic root angiography revealed mild dilatation of the thoracic aorta. There does not appear to be any aortic aneurysm or dissection. Aortic valve leaflets exhibit fair leaflet excursion. There did not appear to be significant aortic regurgitation. CONCLUSIONS: 1. Angiographically relatively mild coronary artery disease. 2. Mild impairment of global left ventricular systolic function with ejection fraction approximately 45%. 3. Elevated left ventricular end-diastolic pressure. DISCUSSION AND RECOMMENDATIONS: Based on results of the study, it appears appropriate to continue a conservative approach. Job ID: [id number] DocumentID: [id number] Dictated Date: 11/26/2019 13:19:40 Athletic Events Scorer Date: 11/26/2019 13:35:59 Dictated By: MONCHO SHELBY MD, MA, FACP, FACC,
[2019-11-26] MEDS ORDERED: POTA10CA43 PO (14:22)
[2019-11-26] MEDS ORDERED: ATOR40TA70 PO (14:22)
[2019-11-26] MEDS ORDERED: LEVO200T6 PO (14:22)
[2019-11-26] MEDS ORDERED: APIX5TAB PO (14:22)
[2019-11-26] MEDS ORDERED: METO-333 PO (14:22)
[2019-11-26] MEDS ORDERED: FURO80TA3 PO (14:43)
[2019-11-26] MEDS ORDERED: IBUP-2473 PO (14:45)
--- NOTE | 2019-11-26 14:46 | NUR ---
SPOKE WITH THE PT- I ALSO CALLED HIS PURA, I WENT THRU THE EXT MED HISTORY AND HAD THE LEARNING ENGINEER FAX OVER A MED LIST TO COMPLETE THE MED REC FUROSEMIDE 80MG- ACCORDING TO PURA THE PT SAY A PROVIDER IN [place] AND WAS TOLD TO INCREASE FUROSEMIDE TO 1 & TABS DAILY. PT TAKES 80MG AM AND 40MG ( OF A 80MG TAB) AT 1200 OTC MEDS: [employer] [facility]
--- NOTE | 2019-11-26 15:08 | Physical Therapy Progress Note ---
Therapy Progress Note Patient just back from heart cath and currently on bed rest. Per RN, PT to begin in a.mSWATI ASHBY PT Nov 26, 2019 15:08
[2019-11-26] MEDS ORDERED: DIAZEPAM 5 MG (VALIUM) TABLET PO PRN (20:00)
[2019-11-26] MEDS: APIXABAN 2.5 MG (ELIQUIS) TABLET PO SCH (21:19)
[2019-11-26] MEDS: meTOprolol TARTRATE 50 MG (LOPRESSOR) TAB PO SCH (21:19)
[2019-11-27] VITALS (9 sets, daily range): BP systolic 137–177; BP diastolic 83–113
[2019-11-27] MEDS: NS IV 1000 ML 1,000 ML IV SCH (00:28)
[2019-11-27 03:43] LABS: BASOPHILS % (AUTO) 1 % (0-10); EOSINOPHILS # (AUTO) 0.3 10^3/uL (0.0-0.3); EOSINOPHILS % (AUTO) 3 % (0-10); HEMATOCRIT 48 % (40-54); HEMOGLOBIN 15.3 g/dL (13.3-17.7); LYMPHOCYTES # (AUTO) 1.5 10^3/uL (1.0-4.0); LYMPHOCYTES % (AUTO) 17 % (12-44); MEAN CORPUSCULAR HEMOGLOBIN 35 pg (25-34); MEAN CORPUSCULAR HGB CONC 32 g/dL (32-36); MEAN CORPUSCULAR VOLUME 110 fL (80-99); MEAN PLATELET VOLUME 11.1 fL (9.0-12.2); MONOCYTES # (AUTO) 1.1 10^3/uL (0.0-1.0); MONOCYTES % (AUTO) 13 % (0-12); NEUTROPHILS # (AUTO) 5.8 10^3/uL (1.8-7.8); NEUTROPHILS % (AUTO) 66 % (42-75); PLATELET COUNT 199 10^3/uL (130-400); WHITE BLOOD COUNT 8.8 10^3/uL (4.3-11.0)
--- NOTE | 2019-11-27 03:48 | Pulmonary Progress Note ---
LIBERTY GARCIA MED STUDENT 11/27/19 0348: Subjective Date Seen by a Provider: Nov 27, 2019 Time Seen by a Provider: 03:30 Subjective/Events-last exam Patient reports continued fatigue. Feels that his edema has improved. Denies CP, palpitations, SOB, light-headedness, n/v. Review of Systems General: No Chills; Fatigue HEENT: No Sinus Congestion, No Sore Throat Pulmonary: No Dyspnea, No Cough Cardiovascular: Edema; No: Chest Pain, Palpitations, Lt Headedness Gastrointestinal: Constipation; No: Nausea, Vomiting, Abdominal Pain Genitourinary: No Dysuria, No Frequency, No Retention Sepsis Event Evaluation Height, Weight, BMI Height: 6'1.00" Weight: 339lbs. 1.6oz. 153.303774jx; 41.32 BMI Method:Stated Exam Exam Vital Signs Date Time Temp Pulse Resp B/P (MAP) Pulse Ox O2 Delivery O2 Flow Rate FiO2 11/27/19 02:45 48 174/88 (116) Nasal Cannula 5.00 11/27/19 02:00 68 159/96 (117) 92 Nasal Cannula 5.00 11/27/19 01:00 70 11/27/19 00:29 37.1 11/27/19 00:00 Nasal Cannula 5.00 11/27/19 00:00 70 172/96 (121) 92 Nasal Cannula 5.00 11/26/19 22:00 74 163/92 (115) 91 Nasal Cannula 5.00 11/26/19 20:09 81 13 177/108 (131) 95 Nasal Cannula 5.00 11/26/19 20:00 Nasal Cannula 5.00 11/26/19 19:28 36.8 11/26/19 19:15 76 16 168/98 (121) 92 Nasal Cannula 5.00 11/26/19 19:00 76 11/26/19 18:00 75 159/91 (113) 94 Nasal Cannula 5.00 11/26/19 17:00 82 6 174/103 (126) 95 Nasal Cannula 5.00 11/26/19 16:00 35.8 11/26/19 16:00 Nasal Cannula 5.00 11/26/19 13:35 88 11/26/19 13:15 157/89 (111) Nasal Cannula 5.00 9/29/20 12:00 Nasal Cannula 5.00 11/26/19 11:00 74 15 175/102 (126) 94 Nasal Cannula 5.00 11/26/19 10:00 73 14 180/95 (123) 93 Nasal Cannula 5.00 11/26/19 09:58 94 Nasal Cannula 5.00 11/26/19 09:00 72 12 137/90 (106) 94 Nasal Cannula 5.00 11/26/19 08:18 36.7 11/26/19 08:00 74 12 174/100 (124) 94 Nasal Cannula 5.00 11/26/19 08:00 Nasal Cannula 5.00 11/26/19 07:00 74 14 146/87 (106) 92 Nasal Cannula 5.00 11/26/19 06:42 75 11/26/19 06:15 77 15 143/80 (101) 90 Nasal Cannula 5.00 11/26/19 06:00 76 13 137/82 (100) 88 Nasal Cannula 5.00 11/26/19 05:45 74 16 140/81 (100) 89 Nasal Cannula 5.00 11/26/19 05:30 77 15 138/78 (98) 93 Nasal Cannula 5.00 11/26/19 05:21 80 11/26/19 05:18 37.1 83 26 148/86 (106) 96 Nasal Cannula 5.00 I & O 11/27/19 07:00 Intake Total 550 ml Output Total 1050 ml Balance -500 ml Height & Weight Height: 6'1.00" Weight: 339lbs. 1.6oz. 153.703866xz; 41.32 BMI Method:Stated General Appearance: No Apparent Distress, Chronically ill, Obese HEENT: PERRL/EOMI; No Scleral Icterus (L), No Scleral Icterus (R) Neck: Normal Inspection, Non Tender, Supple Respiratory: Chest Non Tender, Lungs Clear, Normal Breath Sounds, No Accessory Muscle Use, No Respiratory Distress Cardiovascular: Regular Rate, Rhythm, No Gallop, No JVD, No Murmur, Normal Peripheral Pulses Capillary Refill: Less Than 3 Seconds Peripheral Pulses: 2+ Left Dors-Pedis (L), 2+ Radial Pulses (R), 2+ Radial Pulses (L) Gastrointestinal: normal bowel sounds, non tender, soft Extremity: Normal Capillary Refill, Normal Inspection, Non Tender, No Calf Tenderness, Pedal Edema (2+), Other (R leg wrapped) Neurologic/Psychiatric: Alert, Oriented x3, Normal Mood/Affect Skin: Normal Color, Warm/Dry Lymphatic: No Adenopathy Results Lab Laboratory Tests 11/26/19 07:30 Assessment/Plan Assessment/Plan NSTEMI Cardiology following Cath 11/25: mild CAD, EF 45%, increased LVEDP, recommends continuing conservative treatment CHF Cardiology following BNP 596.8 Continue home medications PAF Cardiology following, loop recorder to be interrogated due to concern for arrhythmia with fall Continue OAC Hypomagenesemia 1.5 today, replace CKD (chronic kidney disease), stage IV BUN 18, Cr 1.03, continue to monitor Hypothyroidism Continue home levothyroxine SHEREEN FORREST DO 11/27/19 0619: Subjective Time Seen by a Provider: 06:17 Exam Exam General Appearance: No Apparent Distress, Chronically ill, Obese HEENT: PERRL/EOMI Neck: Normal Inspection, Non Tender Respiratory: Chest Non Tender, Lungs Clear, Normal Breath Sounds, No Accessory Muscle Use, No Respiratory Distress Cardiovascular: Regular Rate, Rhythm, No Gallop, No JVD, No Murmur, Normal Peripheral Pulses Gastrointestinal: normal bowel sounds, non tender, soft Extremity: Normal Capillary Refill, Normal Inspection, Non Tender, No Calf Tenderness, Pedal Edema (2+) Neurologic/Psychiatric: Alert, Oriented x3 Skin: Normal Color, Warm/Dry Lymphatic: No Adenopathy Assessment/Plan Assessment/Plan NSTEMI Cardiology following Cath 11/25: mild CAD, EF 45%, increased LVEDP, recommends continuing conservative treatment CHF Cardiology following BNP 596.8 Continue home medications PAF Cardiology following, loop recorder to be interrogated due to concern for arrhythmia with fall Continue OAC Hypomagenesemia replace Hypothyroidism Continue home levothyroxine LIBERTY GARCIA MED STUDENT Nov 27, 2019 03:48 SHEREEN FORREST DO Nov 27, 2019 06:19
[2019-11-27 03:58] LABS: CHLORIDE 95 MMOL/L (98-107); SODIUM 144 MMOL/L (135-145)
[2019-11-27 03:59] LABS: CALCIUM 9.1 MG/DL (8.5-10.1)
[2019-11-27 04:00] LABS: GLUCOSE 127 MG/DL (70-105)
[2019-11-27 04:01] LABS: CARBON DIOXIDE 36 MMOL/L (21-32)
[2019-11-27 04:04] LABS: CREATININE SERUM 1.03 MG/DL (0.60-1.30); GFR ESTIMATED > 60; PHOSPHORUS 3.2 MG/DL (2.3-4.7)
[2019-11-27 04:05] LABS: BUN/CREATININE RATIO 17
[2019-11-27 04:06] LABS: MAGNESIUM 1.5 MG/DL (1.6-2.4)
[2019-11-27] MEDS: LEVOTHYROXINE 100 MCG (LEVOTHROID) TAB PO SCH (05:57)
[2019-11-27] MEDS ORDERED: hydrALAZINE (APESOLINE) 20 MG/ML VIAL IV PRN (06:30)
--- NOTE | 2019-11-27 08:13 | Diagnostic Imaging Report ---
EXAMINATION: Portable erect AP chest at 3:10 AM INDICATION: Respiratory distress The mild cardiomegaly noted on the prior exam of 07/25/2018 is again evident and no different. The loop recorder device overlying the left thorax seen previously is also unchanged. There is minimal scar formation near the left heart border. The lungs themselves seem generally clear. There is no sign of failure, pneumonia or pleural effusion to indicate an acute abnormality. The mediastinum is not widened. The osseous structures are intact. IMPRESSION: There is mild cardiomegaly but there is no evidence for an acute cardiopulmonary abnormality. Dictated by: Dictated on workstation # [id number]
[2019-11-27] MEDS: APIXABAN 2.5 MG (ELIQUIS) TABLET PO SCH ×2 (08:51→20:03)
[2019-11-27] MEDS: lisINopril 20 MG (PRINIVIL) TABLET PO SCH (08:51)
[2019-11-27] MEDS: meTOprolol TARTRATE 50 MG (LOPRESSOR) TAB PO SCH ×2 (08:51→20:03)
[2019-11-27] MEDS ORDERED: NON-FORMULARY MEDICATION 1 EA EA (Levothyroxine Sodium 200 MCG) PO SCH (09:00)
--- NOTE | 2019-11-27 09:03 | Physical Therapy Evaluation ---
PT Evaluation-General Medical Diagnosis Admission Date Nov 26, 2019 at 05:10 Medical Diagnosis: NSTEMI Onset Date: Nov 26, 2019 Therapy Diagnosis Therapy Diagnosis: impaired mobility, strength, endurance Height/Weight Height (Feet): 6 Height (Inches): 1.00 Weight (Pounds): 339 Weight (Ounces): 1.6 Precautions Precautions/Isolations: Fall Prevention, Standard Precautions Referral Physician: Susana Reason for Referral: Evaluation/Treatment Medical History Pertinent Medical History: Atrial Fib, DM, Heart Failure, HTN Additional Medical History PMHx: Systolic congestive heart failure (EF 10-15% in 2014) Intermittent atrial fibrillation/flutter DMII HTN Fibromyalgia CKD IV Hypothyroidism SurgHx: Right arm repair Reviewed History: Yes Social History Home: Multilevel (patient doesn't go downstairs) Current Living Status: Spouse PT Steps Into Home: 2 Prior Prior Level of Function SCALE: Activities may be completed with or without assistive devices. 0-Vkszbyogxi-vgaflbz completes the activity by him/herself with no assistance from a helper. 5-Set-up or Clean-up Assistance-helper sets up or cleans up; patient completes activity. Sprague assists only prior to or following the activity. 4-Supervision or Touching Assistance-helper provides verbal cues and/or touching /steadying and/or contact guard assistance as patient completes activity. Assistance may be provided throughout the activity or intermittently. 3-Partial/Moderate Assistance-helper does LESS THAN HALF the effort. Sprague lifts, holds or supports trunk or limbs, but provides less than half the effort. 2-Substantial/Maximal Assistance-helper does MORE THAN HALF the effort. Sprague lifts or holds trunk or limbs and provides more than half the effort. 2-Cpqgzmrao-euwbyx does ALL the effort. Patient does none of the effort to complete the activity. Or, the assistance of 2 or more helpers is required for the patient to complete the activity. If activity was not attempted, code reason: 7-Patient Refused. 9-Not Applicable-not attempted and the patient did not perform the activity before the current illness, exacerbation or injury. 10-Not Attempted due to Environmental Limitations-(lack of equipment, weather restraints, etc.). 88-Not Attempted due to Medical Conditions or Safety Concerns. Bed Mobility: 6 Transfers (B,C,W/C): 6 Gait: 6 Indoor Mobility (Ambulation): Independent Prior Devices Use: Walker PT Evaluation-Current Subjective Patient in bed pre tx, agrees to PT, has no complaints of pain. Pt/Family Goals to be independent at home Objective Patient Orientation: Person, Place Attachments: Oxygen ROM/Strength Strength Lower Extremities 4/5 gross BLE except for hip flexion which is 3+/5 bilaterally Sensory Hearing: Impaired Sensation Right Lower Extremit: Impaired Sensation Left Lower Extremity: Intact Sensation Lower Extremities Patient has decreased light touch sensation in right great toe Transfers Roll Left to Right (QC): 6 Lying to Sitting/Side of Bed(Q: 3 Sit to Stand (QC): 4 Chair/Btk-vw-Kwtyz Xfer(QC): 4 Min assist for supine to sit, no dizziness after sitting, CGA for sit to stand and transfers, transferred to recliner Gait Does the Patient Walk?: Yes Mode of Locomotion: Walk Anticipated Mode of Locomotion: Walk Distance: 3' Gait Assistive Device: FWW Comments/Gait Description CGA Treatment seated BLE exercises x20 (AP, LAQ) Assessment/Needs Patient has impaired mobility, strength, endurance. He needs some assist with supine to sit but is CGA with transfers and ambulation. Rehab Potential: Fair PT Home Care Assistant Goals Snf Goals PT Home Care Assistant Goals Time Frame: Dec 04, 2019 Roll Left & Right (QC): 6 Sit to Lying (QC): 4 Lying-Sitting on Side/Bed(QC): 4 Sit to Stand (QC): 4 Chair/Avg-ps-Qovtk Xfer(QC): 4 Walk 10 feet (QC): 4 Walk 50ft with 2 Turns (QC): 4 PT Plan Problem List Problem List: Activity Tolerance, Functional Strength, Safety, Balance, Gait, Transfer, Bed Mobility, ROM Treatment/Plan Treatment Plan: Continue Plan of Care Treatment Plan: Bed Mobility, Education, Functional Activity [place], Functional Strength, Gait, Safety, Therapeutic Exercise, Transfers Treatment Duration: Dec 04, 2019 Frequency: 6 times per week Estimated Hrs Per Day: .25 hour per day Patient and/or Family Agrees t: Yes Safety Risks/Education Patient Education: Gait Training, Transfer Techniques, Correct Positioning, Safety Issues Teaching Recipient: Patient Teaching Methods: Demonstration, Discussion Response to Teaching: Reinforcement Needed Discharge Recommendations Plan Patient will perform bed mobility and transfer training, balance and endurance training, functional strengthening, stair training, gait training, and education, to improve functional mobility and independence at home. Therapy Discharge Recommendati: Home & Family Time/GCodes Time In: 814 Time Out: 829 Total Billed Treatment Time: 15 Total Billed Treatment 1 visit BARBARA 15' CHAPARRO REHMAN PT Nov 27, 2019 09:03
--- NOTE | 2019-11-27 12:18 | Cardiology Progress Note ---
Subjective Date Seen by Provider: Nov 27, 2019 Time Seen by Provider: 12:14 Subjective/Events-last exam Patient is sitting in a chair, feeling better, no new complaint Review of Systems General: No Chills, No Night Sweats, No Fatigue, No Malaise, No Appetite, No Other HEENT: No Head Aches, No Visual Changes, No Eye Pain, No Ear Pain, No Dysphasia, No Sinus Congestion, No Post Nasal Drip, No Sore Throat, No Other Pulmonary: No Dyspnea, No Cough, No Pleuritic Chest Pain, No Other Cardiovascular: No: Chest Pain, Palpitations, Orthopnea, Paroxysmal Noc. Dyspnea, Edema, Lt Headedness, Other Objective-Cardiology Exam Last Set of Vital Signs Vital Signs 11/26/19 11/27/19 11/27/19 20:09 12:00 12:02 Temp 36.6 Resp 13 Pulse Ox 93 O2 Delivery Nasal Cannula O2 Flow Rate 2.00 Capillary Refill : Less Than 3 Seconds I&O Intake and Output 11/27/19 00:00 Intake Total 550 ml Output Total 1050 ml Balance -500 ml Intake Oral 550 ml Output Urine Total 1050 ml Daily Weight Change No General: Alert, Oriented X3, Cooperative HEENT: Atraumatic, PERRLA Neck: Supple, No JVD, No Thyromegaly Lungs: Clear to Auscultation, Normal Air Movement Heart: Regular Rate, Normal S1, Normal S2, No Murmurs Abdomen: Normal Bowel Sounds, Soft, No Tenderness, No Hepatosplenomegaly, No Masses Extremities: No Clubbing, No Cyanosis, No Edema, Normal Pulses, No Tenderness/Swelling Skin: No Rashes, No Breakdown, No Significant Lesion Neuro: Normal Gait, Normal Speech, Strength at 5/5 X4 Ext, Normal Tone, Sensation Intact Psych/Mental Status: Mental Status NL, Mood NL Results Lab Laboratory Tests 11/27/19 02:46 A/P-Cardiology Admission Diagnosis Non-ST elevation myocardial infarction Paroxysmal atrial flutter Congestive heart failure Hypertension Assessment/Plan Non-ST elevation myocardial infarction, cardiac catheterization was carried out on [address] Lozano reported as mild to moderate coronary artery disease nonobstructive disease, medical therapy is recommended no intervention is needed Generalized weakness and fall, no full syncope was reported. Congestive heart failure, acute on chronic left ventricular systolic dysfunction ejection fraction 40 percent. Paroxysmal atrial flutter, had a loop recorder implanted in June 2017. Followed by Dr. Lozano History of alcohol abuse, still drinking alcohol on a daily basis Hyperlipidemia maintained on Lipitor 40 mg daily, followed by Dr. Lozano Hypothyroidism followed and managed by primary care physician Nonhealing leg ulcer on the left side. Has been followed by Dr. Lozano, will consider CATERINA. Chronic kidney disease stage IV, monitor renal function Okay to transfer to apical floor. Clinical Quality Measures DVT/VTE Risk/Contraindication: Risk Factor Score Per Nursin RFS Level Per Nursing on Admit: 4+=Very High MÓNICA SAHU MD Nov 27, 2019 12:18
[2019-11-27] MEDS: ASPIRIN 81 MG CHEW (CHILDREN'S ASA) PO SCH (13:56)
--- NOTE | 2019-11-27 14:25 | NUR ---
REPORT RECEIVED FROM ICU, LOULOU PICHARDO. ASSUMED CARE OF THE PATIENT AT THIS TIME. PATIENT DENIES ANY NEEDS WILL CONTINUE TO MONITOR.
--- NOTE | 2019-11-27 14:34 | NUR ---
PATIENT TRANSFERRED DOWN TO 4TH FLOOR AT THIS TIME VIA , WITHOUT INCIDENT. PERSONAL BELONGINGS SENT WITH PATIENT. REPORT GIVEN TO WHITNEY, TO ASSUME CARE OF PATIENT. PT NOTIFIED OF TRANSFER ET ROOM NUMBER GIVEN TO PATIENT.
--- NOTE | 2019-11-27 15:30 | NUR ---
NOTIFIED DR LAU PER PATIENT REQUEST TO REMIND HER ABOUT THE STOOL SOFTENERS HE ASKED HER ABOUT THIS MORNING. MIRALAX BID ORDERED
--- NOTE | 2019-11-27 18:46 | Wound Care Assessment ---
Wound Care Assessment Date Seen by Provider: Nov 27, 2019 Time Seen by Provider: 17:50 Chief Complaint R calf ulcer. HPI The patient is a 69 year old male with history of venous leg ulceration, followed and treated at the [place] [facility]. The r calf two-layer c ompression wrap is removed, the calf ulcer is healed. He does not need to replace wrap while in hospital at relative bed rest and should follow-up promptly upon discharge with his treating physician. Past Medical History: Admits Diabetes Type II, Admits Heart Disease (CHF,Atrial fib,HTN, CKD IV) Smoking Status: Never a Smoker Recreational Drug Use: No Alcohol Use: Regular Use Review of Systems Pulmonary: No Dyspnea Cardiovascular: No: Chest Pain Exam Vital Signs Date Time Temp Pulse Resp B/P (MAP) Pulse Ox O2 Delivery O2 Flow Rate FiO2 11/27/19 15:59 36.6 74 20 137/83 (101) 92 Nasal Cannula 2.00 Capillary Refill : Less Than 3 Seconds General Appearance: no apparent distress Cardiovascular: regular rate, rhythm Respiratory: normal breath sounds Extremities: other (leg ulcers are healed.) Results Laboratory Tests 11/27/19 02:46: White Blood Count 8.8, Red Blood Count 4.39, Hemoglobin 15.3, Hematocrit 48, Mean Corpuscular Volume 110H, Mean Corpuscular Hemoglobin 35H, Mean Corpuscular Hemoglobin Concent 32, Red Cell Distribution Width 14.3, Platelet Count 199, Mean Platelet Volume 11.1, Immature Granulocyte % (Auto) 0, Neutrophils (%) (Auto) 66, Lymphocytes (%) (Auto) 17, Monocytes (%) (Auto) 13H, Eosinophils (%) (Auto) 3, Basophils (%) (Auto) 1, Neutrophils # (Auto) 5.8, Lymphocytes # (Auto) 1.5, Monocytes # (Auto) 1.1H, Eosinophils # (Auto) 0.3, Basophils # (Auto) 0.0, Immature Granulocyte # (Auto) 0.0, Sodium Level 144, Potassium Level 4.0, Chloride Level 95L, Carbon Dioxide Level 36H, Anion Gap 13, Blood Urea Nitrogen 18, Creatinine 1.03, Estimat Glomerular Filtration Rate > 60, BUN/Creatinine Ratio 17, Glucose Level 127H, Calcium Level 9.1, Phosphorus Level 3.2, Magnesium Level 1.5L Microbiology 11/26/19 MRSA Screen - Final, Complete MRSA not isolated Microbiology 11/26/19 MRSA Screen - Final, Complete MRSA not isolated Assessment/Plan/Dx 1. Venous calf ulcer, healed. 2. Congestive heart failure. Plan: The patient follows with the [facility]. KEITH DREW MD Nov 27, 2019 18:46
[2019-11-27] MEDS: polyethylene glycoL POWDER 17 GM (MIRALAX) PACK PO SCH (20:03)
--- NOTE | 2019-11-27 22:15 | Progress Note ---
Subjective Subjective/Events-last exam Patient feels much better this AM. Tolerating PO diet. Had cath yesterday that was normal. Still feeling weak but has been up with walker. Denies any pain. States that he has been constipated and wanting some miralax to help him have a bowel movement. Review of Systems Pulmonary: No Dyspnea, No Cough Cardiovascular: No: Chest Pain, Palpitations Gastrointestinal: Constipation Neurological: Weakness, Incoordination Objective Exam Last Set of Vital Signs Vital Signs Date Time Temp Pulse Resp B/P (MAP) Pulse Ox O2 Delivery O2 Flow Rate FiO2 11/27/19 21:54 36.2 73 18 155/90 (111) 93 Nasal Cannula 2.00 2.00 Capillary Refill : Less Than 3 Seconds I&O Intake and Output 11/27/19 00:00 Intake Total 550 ml Output Total 1050 ml Balance -500 ml Intake Oral 550 ml Output Urine Total 1050 ml Daily Weight Change No General: Alert, Oriented X3, Cooperative, No Acute Distress HEENT: Mucous Memb Moist/[place] Lungs: Clear to Auscultation, Normal Air Movement Heart: Regular Rate, No Murmurs Abdomen: Normal Bowel Sounds, Soft, No Tenderness, No Masses Extremities: Other (2+ pitting edema bilaterally) Neuro: Strength at 5/5 X4 Ext, Cranial Nerves 3-12 NL Psych/Mental Status: Mental Status NL, Mood NL Results/Procedures Lab Laboratory Tests 11/27/19 02:46: White Blood Count 8.8, Red Blood Count 4.39, Hemoglobin 15.3, Hematocrit 48, Mean Corpuscular Volume 110H, Mean Corpuscular Hemoglobin 35H, Mean Corpuscular Hemoglobin Concent 32, Red Cell Distribution Width 14.3, Platelet Count 199, Mean Platelet Volume 11.1, Immature Granulocyte % (Auto) 0, Neutrophils (%) (Auto) 66, Lymphocytes (%) (Auto) 17, Monocytes (%) (Auto) 13H, Eosinophils (%) (Auto) 3, Basophils (%) (Auto) 1, Neutrophils # (Auto) 5.8, Lymphocytes # (Auto) 1.5, Monocytes # (Auto) 1.1H, Eosinophils # (Auto) 0.3, Basophils # (Auto) 0.0, Immature Granulocyte # (Auto) 0.0, Sodium Level 144, Potassium Level 4.0, Chloride Level 95L, Carbon Dioxide Level 36H, Anion Gap 13, Blood Urea Nitrogen 18, Creatinine 1.03, Estimat Glomerular Filtration Rate > 60, BUN/Creatinine Ra bre 17, Glucose Level 127H, Calcium Level 9.1, Phosphorus Level 3.2, Magnesium Level 1.5L Microbiology 11/26/19 MRSA Screen - Final, Complete MRSA not isolated Assessment/Plan Assessment/Plan (1) Elevated troponin level Status: Acute Assessment & Plan: - Consult Cardiology, appreciate recommendations, plan for cath today 11/26: Normal Cath (2) Fall Status: Acute Assessment & Plan: - PT ordered Qualifiers: Qualified Codes: W19.XXXA - Unspecified fall, initial encounter (3) Acute on chronic systolic CHF (congestive heart failure) Status: Acute Assessment & Plan: - Cardiology following (4) CKD (chronic kidney disease), stage IV Status: Chronic Assessment & Plan: - At baseline, will continue to monitor with diuretics 11/26: Cr stable (5) Atrial fibrillation, controlled Status: Chronic Assessment & Plan: - OAC (6) Hypothyroidism Status: Chronic Assessment & Plan: - Continue home meds Qualifiers: Qualified Codes: E03.9 - Hypothyroidism, unspecified (7) Leg wound, right Status: Chronic Assessment & Plan: - Wound Care ordered Clinical Quality Measures DVT/VTE Risk/Contraindication: Risk Factor Score Per Nursin RFS Level Per Nursing on Admit: 4+=Very High HERBERT LAU MD Nov 27, 2019 22:15
[2019-11-28] VITALS: BP 163/91
[2019-11-28 03:56] VITALS: BP 156/80
[2019-11-28] MEDS: LEVOTHYROXINE 100 MCG (LEVOTHROID) TAB PO SCH (06:04)
[2019-11-28 07:50] LABS: BASOPHILS # (AUTO) 0.1 10^3/uL (0.0-0.1); BASOPHILS % (AUTO) 1 % (0-10); EOSINOPHILS # (AUTO) 0.4 10^3/uL (0.0-0.3); EOSINOPHILS % (AUTO) 5 % (0-10); HEMATOCRIT 47 % (40-54); HEMOGLOBIN 15.1 g/dL (13.3-17.7); LYMPHOCYTES # (AUTO) 1.9 10^3/uL (1.0-4.0); LYMPHOCYTES % (AUTO) 20 % (12-44); MEAN CORPUSCULAR HEMOGLOBIN 35 pg (25-34); MEAN CORPUSCULAR HGB CONC 32 g/dL (32-36); MEAN CORPUSCULAR VOLUME 110 fL (80-99); MEAN PLATELET VOLUME 10.5 fL (9.0-12.2); MONOCYTES # (AUTO) 1.4 10^3/uL (0.0-1.0); MONOCYTES % (AUTO) 15 % (0-12); NEUTROPHILS # (AUTO) 5.7 10^3/uL (1.8-7.8); NEUTROPHILS % (AUTO) 60 % (42-75); PLATELET COUNT 151 10^3/uL (130-400); WHITE BLOOD COUNT 9.5 10^3/uL (4.3-11.0)
[2019-11-28 08:00] VITALS: BP 148/95
[2019-11-28 08:01] LABS: BUN/CREATININE RATIO 17; CALCIUM 9.2 MG/DL (8.5-10.1); CARBON DIOXIDE 34 MMOL/L (21-32); CHLORIDE 97 MMOL/L (98-107); GFR ESTIMATED > 60; GLUCOSE 116 MG/DL (70-105); MAGNESIUM 1.5 MG/DL (1.6-2.4); PHOSPHORUS 2.7 MG/DL (2.3-4.7); POTASSIUM 3.4 MMOL/L (3.6-5.0); SODIUM 142 MMOL/L (135-145)
[2019-11-28] MEDS: APIXABAN 2.5 MG (ELIQUIS) TABLET PO SCH (08:46)
[2019-11-28] MEDS: meTOprolol TARTRATE 50 MG (LOPRESSOR) TAB PO SCH (08:46)
[2019-11-28] MEDS: lisINopril 20 MG (PRINIVIL) TABLET PO SCH (08:46)
[2019-11-28] MEDS: ASPIRIN 81 MG CHEW (CHILDREN'S ASA) PO SCH (08:46)
[2019-11-28] MEDS: polyethylene glycoL POWDER 17 GM (MIRALAX) PACK PO SCH (08:47)
--- NOTE | 2019-11-28 09:26 | Progress Note - Cardiology ---
Cardiology SOAP Progress Note Subjective: Sitting up on the side of the bed. States he feels better today. No c/o CP or palpitations. Feels breathing has improved. LE swelling improved. C/O gen joint/muscle aches which he attributes to his fibromyalgia Objective: I&O/Vital Signs Weight (Pounds): 339 Weight (Ounces): 1.6 Weight (Calculated Kilograms): 153.010981 Constitutional: AAO x 3, well-developed, well-nourished Respiratory: No accessory muscle use, No respiratory distress; chest expansion is symmetric, lungs clear to auscultation Cardiovascular: irregularly irregular; No JVD; S1 and S2 Gastrointestional: No tender; soft, round Extremities: abrasion (multiple small abrasion to RLE, healing, no drainage), no lower extremity edema bilateral Neurologic/Psychiatric: grossly intact (moves all extremities) Skin: other (see above) Results/Procedures: Labs Microbiology 11/26/19 MRSA Screen - Final, Complete MRSA not isolated A/P: Assessment: Cardiac catheterization was carried out on 2019 showing mild to moderate coronary artery disease nonobstructive disease Elevated troponin, likely Type 2 HI secondary to transient hypoxia 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 Last echo April 30, 2019 shows LVEF 40-45%. Hypokinesis of the inferolateral myocardium. Grade 1 diastolic dysfunction. LA severely dilated. Mod calcified mitral annulus. Aortic valve thickening, consistent with sclerosis. RVSP approx 21 mmHg NICM Acute on chronic systolic CHF - clinically improved HTN Generalized weakness and fall, no full syncope was reported - no further episodes Paroxysmal atrial flutter, had a loop recorder implanted in June 2017 OAC with Eliquis History of alcohol abuse, still drinking alcohol on a daily basis - cessation advised Hyperlipidemia maintained on Lipitor 40 mg daily Hypothyroidism followed and managed by primary care physician LUCIANO wound -followed by Dr. Horvath - healed Chronic kidney disease stage IV Plan: Continue current medication regimen Adjust regimen as tolerated to treat NICM Monitor lab closely Replace electrolytes Advise immediate and complete alcohol cessation KENDRA MARIE Nov 28, 2019 09:26
[2019-11-28] MEDS ORDERED: KCL 20 MEQ TAB (K-DUR) PO NR (09:30)
[2019-11-28] MEDS: MAGNESIUM 1 GM/100 ML IVPB 100 ML IV SCH ×4 (09:58→13:25)
--- NOTE | 2019-11-28 10:17 | Physical Therapy Daily Note ---
PT Daily Note-Current Subjective Patient reports he is up independently in room. Agrees to PT. He states he wants to go home today. Mental Status Patient Orientation: Normal For Age Attachments: Oxygen Transfers SCALE: Activities may be completed with or without assistive devices. 0-Cwvaaorocz-hglanpv completes the activity by him/herself with no assistance from a helper. 5-Set-up or Clean-up Assistance-helper sets up or cleans up; patient completes activity. [place] assists only prior to or following the activity. 4-Supervision or Touching Assistance-helper provides verbal cues and/or touching/steadying and/or contact guard assistance as patient completes activity. Assistance may be provided throughout the activity or intermittently. 3-Partial/Moderate Assistance-helper does LESS THAN HALF the effort. Madison lifts, holds or supports trunk or limbs, but provides less than half the effort. 2-Substantial/Maximal Assistance-helper does MORE THAN HALF the effort. [place] lifts or holds trunk or limbs and provides more than half the effort. 3-Lcdelwdio-efgsii does ALL the effort. Patient does none of the effort to complete the activity. Or, the assistance of 2 or more helpers is required for the patient to complete the activity. If activity was not attempted, code reason: 7-Patient Refused. 9-Not Applicable-not attempted and the patient did not perform the activity before the current illness, exacerbation or injury. 10-Not Attempted due to Environmental Limitations-(lack of equipment, weather restraints, etc.). 88-Not Attempted due to Medical Conditions or Safety Concerns. Roll Left & Right (QC): 6 Sit to Lying (QC): 6 Lying to Sitting/Side of Bed(Q: 6 Sit to Stand (QC): 6 Gait Training Does the Patient Walk?: Yes Distance: 300' Walk 10 feet (QC): 6 Walk 50 ft with 2 Turns(QC): 6 Walk 150 ft (QC): 6 Gait Assistive Device: FWW safe and functional with no deviation Assessment Patient is currently at independent PLOF with all gross motor skills and does not require skilled therapy intervention. Patient has been instructed to ambulate PRN in room with O2 in place. Patient voices understanding. PT Fdc Goals Fdc Goals PT Dental Lab Technician Goals Time Frame: Dec 04, 2019 Roll Left & Right (QC): 6 Sit to Lying (QC): 4 Lying-Sitting on Side/Bed(QC): 4 Sit to Stand (QC): 4 Chair/Yqc-xr-Pncik Xfer(QC): 4 Walk 10 feet (QC): 4 Walk 50ft with 2 Turns (QC): 4 PT Plan Treatment/Plan Treatment Plan: Discontinue PT, goals met Treatment Plan: Bed Mobility, Education, Functional Activity [place], Functional Strength, Gait, Safety, Therapeutic Exercise, Transfers Treatment Duration: Dec 04, 2019 Frequency: 6 times per week Estimated Hrs Per Day: .25 hour per day Patient and/or Family Agrees t: Yes Time/GCodes Time In: 930 Time Out: 944 Total Billed Treatment Time: 14 Total Billed Treatment 1 visit FA 14 min SWATI FLOREZ PT Nov 28, 2019 10:17
[2019-11-28 12:11] VITALS: BP 167/94
--- NOTE | 2019-11-28 12:22 | Discharge Summary ---
Discharge Summary Reconcile Patient Problems Problems Reviewed?: Yes Instructions for Patient Via [employer], Assessment/Instructions Elevated Troponin Fall A/C systolic CHF CKD HTN Obesity BMI 40 Physician to follow Patient: Emanuel Kilgore Diet for Home: Cardiac Diet Hospital Course Date of Admission: Nov 26, 2019 at 05:10 Admission Diagnosis : Family Physician/Provider: Pool Tristan MD Date of Discharge: 11/28/19 Discharge Diagnosis: Elevated Troponin Fall A/C Systolic CHF CKD IV HTN Obesity BMI 40 Hospital Course: 69 yo M that presented after fall at home and was found to have elevated troponin. Patient was seen by Dr Glass with Cardiology and was taken to the clinical laboratory service teacher. No interventions were done during the cath. EF is still diminished @ 45%. Patient feeling much better and was transitioned to floor. He is on baseline oxygen. Patient need walker for ambulation. Will be d/c today with [facility] for PT. Labs and Pending Lab Test: Laboratory Tests 11/28/19 07:37: White Blood Count 9.5, Red Blood Count 4.28L, Hemoglobin 15.1, Hematocrit 47, Mean Corpuscular Volume 110H, Mean Corpuscular Hemoglobin 35H, Mean Corpuscular Hemoglobin Concent 32, Red Cell Distribution Width 14.2, Platelet Count 151, Mean Platelet Volume 10.5, Immature Granulocyte % (Auto) 0, Neutrophils (%) (Auto) 60, Lymphocytes (%) (Auto) 20, Monocytes (%) (Auto) 15H, Eosinophils (%) (Auto) 5, Basophils (%) (Auto) 1, Neutrophils # (Auto) 5.7, Lymphocytes # (Auto) 1.9, Monocytes # (Auto) 1.4H, Eosinophils # (Auto) 0.4H, Basophils # (Auto) 0.1, Immature Granulocyte # (Auto) 0.0, Sodium Level 142, Potassium Level 3.4L, Chloride Level 97L, Carbon Dioxide Level 34H, Anion Gap 11, Blood Urea Nitrogen 15, Creatinine 0.90, Estimat Glomerular Filtration Rate > 60, BUN/Creatinine Ratio 17, Glucose Level 116H, Calcium Level 9.2, Phosphorus Level 2.7, Magnesium Level 1.5L Microbiology 11/26/19 MRSA Screen - Final, Complete MRSA not isolated Home Meds Active Reported Ibuprofen 200 Mg Tablet 400 Mg PO Q8H PRN Furosemide 80 Mg Tablet 40 Mg PO 1200 TAKES OF AN 80MG TAB Levothyroxine Sodium 200 Mcg Tablet 200 Mcg PO DAILY Metoprolol Tartrate 25 Mg Tablet 25 Mg PO BID Potassium Chloride 10 Meq Capsule.er 10 Meq PO DAILY Eliquis (Apixaban) 5 Mg Tablet 5 Mg PO BID Atorvastatin Calcium 40 Mg Tablet 40 Mg PO DAILY Furosemide 80 Mg Tablet 80 Mg PO DAILY Diazepam 5 Mg Tablet 5 Mg PO BID PRN Multiple Vitamins (Multivitamin) 1 Each Tablet 1 Tab PO DAILY Prostate Health Caplet (Saw/Vit E/Sod Era/Lyc/Beta/Pyg) 1 Each Tablet 1 Tab PO DAILY Consulations Dr Glass: Cardiology Patient Allergies: Coded Allergies: carvedilol (Verified Allergy, Intermediate, Takes Metoprolol at home, 07/24/18) warfarin (Verified Allergy, Mild, ULCERS, 12/12/17) Height (Feet): 6 Height (Inches): 1.00 Weight (Pounds): 339 Weight (Ounces): 1.6 New Medications: Apixaban (Eliquis) 2.5 Mg Tablet 2.5 MG PO BID, #60 TAB Aspirin (Aspirin) 81 Mg Tab.chew 81 MG PO DAILY for 30 Days, #30 TAB Lisinopril (Lisinopril) 20 Mg Tablet 20 MG PO DAILY, #30 TAB Metoprolol Tartrate (Metoprolol Tartrate) 50 Mg Tablet 100 MG PO BID, #60 TAB Continued Medications: Atorvastatin Calcium (Atorvastatin Calcium) 40 Mg Tablet 40 MG PO DAILY, TAB Diazepam (Diazepam) 5 Mg Tablet 5 MG PO BID PRN for MUSCLE SPASMS, TAB Furosemide (Furosemide) 80 Mg Tablet 80 MG PO DAILY, TAB Furosemide (Furosemide) 80 Mg Tablet 40 MG PO 1200, TAB TAKES OF AN 80MG TAB Levothyroxine Sodium (Levothyroxine Sodium) 200 Mcg Tablet 200 MCG PO DAILY, TAB Multivitamin (Multiple Vitamins) 1 Each Tablet 1 TAB PO DAILY, TAB Potassium Chloride (Potassium Chloride) 10 Meq Capsule.er 10 MEQ PO DAILY, CAP Saw/Vit E/Sod Era/Lyc/Beta/Pyg (Prostate Health Caplet) 1 Each Tablet 1 TAB PO DAILY, TAB Discontinued Medications: Apixaban (Eliquis) 5 Mg Tablet 5 MG PO BID, TAB Ibuprofen (Ibuprofen) 200 Mg Tablet 400 MG PO Q8H PRN for PAIN-MILD (1-4), TAB Metoprolol Tartrate (Metoprolol Tartrate) 25 Mg Tablet 25 MG PO BID, TAB Home Health Need/Face to Face Date of Face to Face: Nov 28, 2019 Clinical Findings: Generalized weakness and fatigue, Muscle weakness, Shortness of breath, Unsteady gait I have seen Pt [id number]: Yes Discharged To: Home Diagnosis/Conditions: See Above Patient is Homebound due to: Marleni fall risk due to instabilty, Shortness of br eath/distress Homebound Status Due to the above stated illness, injury or surgical procedure (medical condition or diagnosis) and associated clinical findings, the patient is homebound because of his/her inability to leave home except with aid of a supportive device and/or person AND leaving the home requires a considerable and taxing effort or is medically contraindicated. Pt req the following assistanc: Walker Home Health Nursing Orders Home Health Services Order: Physical Therapy-Evaluate & Treat Therapy Orders Therapy Orders: PT to assess for OT Certify Stmt I certify that this patient is under my care and that I, a nurse practitioner or a physician; a television production assistant working with me, had a face to face encounter that - meets the physician face to face encounter requirements with this patient as dated. Discharge Physical Exam General: Alert, Oriented X3, Cooperative, No Acute Distress Lungs: Clear to Auscultation, Normal Air Movement Heart: Regular Rate, No Murmurs Abdomen: Normal Bowel Sounds, Soft, No Tenderness, No Masses Extremities: Other (2+ pitting edema bilaterally) Skin: No Rashes, No Breakdown Neuro: Normal Speech, Sensation Intact, Cranial Nerves 3-12 NL Psych/Mental Status: Mental Status NL, Mood NL HERBERT LAU MD Nov 28, 2019 12:12
[2019-11-28] MEDS ORDERED: LISI-552 PO (12:23)
[2019-11-28] MEDS ORDERED: ASPI-999 PO (12:23)
[2019-11-28] MEDS ORDERED: METO50TA15 PO (12:23)
[2019-11-28] MEDS ORDERED: APIX2.5T PO (12:23)
--- NOTE | 2019-11-28 13:43 | NUR ---
DISCHARGE PLANNING: Patient will discharge today to home with new PT HHC with [facility]. will transport patient. I asked for him to let her know to bring his portable Oxygen. I also made a Follow-UP appt with Dr. Lozano for the afternoon of the at 1:40. No other needs at this time. Addendum: 11/28/19 at 1546 by JF PETIT RN UPDATE: This RN has been unable to get HHC set up for PT only for this patient. [facility] denied due to not being able to open the case for a week and a half, and no other agency will service this area. Spoke to Dr. Meza. She agreed with talking with the patient and having him seek his PCP assistance in getting OUT-PT PT set up through [facility]. He does see a Dr. Bray there, newly established. Out side of that PT evaluation here puts him at his PLOF. He exhibited ability to this RN to get up and get himself dressed and ambulated to the wheelchair. asked about a heavy duty wheelchair and a lift chair. I suggest that those go through his PCP as well
--- NOTE | 2019-11-28 16:38 | Progress Note - Cardiology ---
Cardiology SOAP Progress Note Subjective: Weakness improving Shortness of breath back to its usual baseline No cp or palp or syncope Objective: I&O/Vital Signs 11/28/19 11/28/19 11/28/19 11/28/19 07:35 08:00 09:00 12:11 Temp 36.6 35.4 Pulse 83 70 53 Resp 18 20 B/P (MAP) 148/95 (112) 167/94 (118) Pulse Ox 94 93 O2 Delivery Nasal Cannula Nasal Cannula Nasal Cannula O2 Flow Rate 2.00 2.00 2.00 2.00 2.00 11/28/19 13:50 O2 Delivery Nasal Cannula O2 Flow Rate 2.00 11/28/19 00:00 Intake Total 1750 ml Output Total 880 ml Balance 870 ml Weight (Pounds): 339 Weight (Ounces): 1.6 Weight (Calculated Kilograms): 153.557423 Constitutional: AAO x 3, well-developed, well-nourished Respiratory: No accessory muscle use, No respiratory distress; chest expansion is symmetric, lungs clear to auscultation Cardiovascular: irregularly irregular; No JVD; S1 and S2 Gastrointestional: No tender; soft, round Extremities: abrasion (multiple small abrasion to RLE, healing, no drainage), no lower extremity edema bilateral Neurologic/Psychiatric: grossly intact (moves all extremities) Skin: other (see above) Results/Procedures: Labs Laboratory Tests 11/28/19 07:37: White Blood Count 9.5, Red Blood Count 4.28L, Hemoglobin 15.1, Hematocrit 47, Mean Corpuscular Volume 110H, Mean Corpuscular Hemoglobin 35H, Mean Corpuscular Hemoglobin Concent 32, Red Cell Distribution Width 14.2, Platelet Count 151, Mean Platelet Volume 10.5, Immature Granulocyte % (Auto) 0, Neutrophils (%) (Aut o) 60, Lymphocytes (%) (Auto) 20, Monocytes (%) (Auto) 15H, Eosinophils (%) (Auto) 5, Basophils (%) (Auto) 1, Neutrophils # (Auto) 5.7, Lymphocytes # (Auto) 1.9, Monocytes # (Auto) 1.4H, Eosinophils # (Auto) 0.4H, Basophils # (Auto) 0.1, Immature Granulocyte # (Auto) 0.0, Sodium Level 142, Potassium Level 3.4L, Chloride Level 97L, Carbon Dioxide Level 34H, Anion Gap 11, Blood Urea Nitrogen 15, Creatinine 0.90, Estimat Glomerular Filtration Rate > 60, BUN/Creatinine Ratio 17, Glucose Level 116H, Calcium Level 9.2, Phosphorus Level 2.7, Magnesium Level 1.5L Microbiology 11/26/19 MRSA Screen - Final, Complete MRSA not isolated A/P: Assessment: Cardiac catheterization was carried out on 2019 showing mild to moderate coronary artery disease nonobstructive disease Elevated troponin, likely Type 2 UT secondary to transient hypoxia 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 Last echo April 30, 2019 shows LVEF 40-45%. Hypokinesis of the inferolateral myocardium. Grade 1 diastolic dysfunction. LA severely dilated. Mod calcified mitral annulus. Aortic valve thickening, consistent with sclerosis. RVSP appro x 21 mmHg NICM Acute on chronic systolic CHF - clinically improved HTN Generalized weakness and fall, no full syncope was reported - no further episodes Paroxysmal atrial flutter, had a loop recorder implanted in June 2017 OAC with Eliquis History of alcohol abuse, still drinking alcohol on a daily basis - cessation advised Hyperlipidemia maintained on Lipitor 40 mg daily Hypothyroidism followed and managed by primary care physician RLE wound -followed by Dr. Horvath - healed Chronic kidney disease stage IV Plan: Continue current medication regimen Adjust regimen as tolerated to treat NICM Monitor lab closely Replace electrolytes Advise immediate and complete alcohol cessation MONCHO SHELBY MD FACP FAC CCDS Nov 28, 2019 16:38
--- NOTE | 2019-11-28 16:49 | Physician Query Clarification ---
"Physician Query-General Query to Physician: The medical record reflects the following clinical scenario: History/Risk factors: HTN, Hyperlipidemia Clinical Findings: Troponin up to 0.717, EKG without ST Elevation Treatment: Cardiology consult, Heart cath, Heparin Question: Do you agree with the impression of NSTEMI per Dr Alfaro and Dr Shena carmen? If you agree, please document in Progress Notes or Discharge Summary. 1. Yes; will document NSTEMI in the Progress Notes/Discharge Summary 2. No; will continue to document Elevated Troponin in the Progress Notes/Discharge Summary 3. Type 2 NH d/t acute on chronic systolic CHF 4. Other; will document explanation of clinical findings 5. Clinically undetermined; no explanation for clinical findings Please remember a lack of response to the above will prompt a phone page by CDI/coding staff. In responding to this query, please exercise your independent professional judgment. The purpose of this communication is to more accurately reflect the complexity of your patients condition. The fact that a question is asked does not imply that any particular answer is desired or expected. Thank you for timely response to this clarification. Taty Kang, MSN, RN RN Specialist-Clinical Doc Improvement CD -Health Info Mgmt Operations [address] [facility] t: [phone] | f: [phone] If you are unable to reach me at my extension, I may be working from home. Please contact me at [phone] PHYSICIAN RESPONSE: Based on the clinical findings in the record, please respond to the query above on this document as an addendum. Physician Response: If you have questions please contact: Nurse Assessor: Ext: Thank you for your time and cooperation. Clinical Interactive Digital Media Specialist/Nurse Assessor This is a permanent part of the medical record TATY KANG Nov 28, 2019 16:49 JHONNY HEATH Nov 29, 2019 11:20"
[2019-11-28 17:55] VITALS: BP 167/94
== END 2019-11-28 17:58 | disposition home health service (06) | DRG 280 ==
LOC: ICU 05:10 → 4TH 11-27 14:30
PROVIDERS: ADMIT Internal Medicine; ATTEND Family Medicine
PROC: 4A023N7 Measurement of Cardiac Sampling and Pressure, Left Heart, Percutaneous Approach (ICD-10-PCS; principal; 2019-11-26)
PROC: B2111ZZ Fluoroscopy of Multiple Coronary Arteries using Low Osmolar Contrast (ICD-10-PCS; 2019-11-26)
PROC: B2151ZZ Fluoroscopy of Left Heart using Low Osmolar Contrast (ICD-10-PCS; 2019-11-26)
PROC: B3101ZZ Fluoroscopy of Thoracic Aorta using Low Osmolar Contrast (ICD-10-PCS; 2019-11-26)
DX: I13.0 Hypertensive heart and chronic kidney disease with heart failure and stage 1 through stage 4 chronic kidney disease, or unspecified chronic kidney disease (principal); I50.23 Acute on chronic systolic (congestive) heart failure; I21.A1 Myocardial infarction type 2; I48.92 Unspecified atrial flutter; N18.4 Chronic kidney disease, stage 4 (severe); Z68.41 Body mass index [BMI] 40.0-44.9, adult; L97.929 Non-pressure chronic ulcer of unspecified part of left lower leg with unspecified severity; I42.0 Dilated cardiomyopathy; E66.9 Obesity, unspecified; I25.10 Atherosclerotic heart disease of native coronary artery without angina pectoris; E78.5 Hyperlipidemia, unspecified; E03.9 Hypothyroidism, unspecified; N40.0 Benign prostatic hyperplasia without lower urinary tract symptoms; R35.0 Frequency of micturition; G47.30 Sleep apnea, unspecified; J44.9 Chronic obstructive pulmonary disease, unspecified; M79.7 Fibromyalgia; M19.91 Primary osteoarthritis, unspecified site; F10.10 Alcohol abuse, uncomplicated; I77.810 Thoracic aortic ectasia; Z91.81 History of falling; Z23 Encounter for immunization
CPT/HCPCS: 36415; 71045; 80048; 80053; 83735; 83880; 84100; 84484; 85025; 85027; 87081; 90662; 93005; 93458; 93567